=== PATIENT | female | born 1960 | race Caucasian/White ===

== ENCOUNTER 2017-08-16 03:11 | Observation (INO) | payer OTHER, SELFPAY ==
[2017-08-16] VITALS (10 sets, daily range): BP systolic 142–190; BP diastolic 84–112; PULSE 78–90; RESP 16–18; TEMP 36.7–36.8; O2SAT 95–99; BMI 38.2; BMI 37.4
--- NOTE | 2017-08-16 03:29 | EKG12_ITS ---
Test Reason : CP Blood Pressure : / mmHG Vent. Rate : 083 BPM Atrial Rate : 083 BPM P-R Int : 174 ms QRS Dur : 096 ms QT Int : 388 ms P-R-T Axes : 032 -27 005 degrees QTc Int : 455 ms Normal sinus rhythm Inferior infarct , age undetermined Anterior infarct , age undetermined Abnormal ECG Confirmed by NAVA COOPER, MAGDA ([id number]), medical editor MARK NICOLE ([id number]) on 08/19/2017 4:34:56 PM Referred By: GALINA Confirmed By:MAGDA VICK MD
[2017-08-16] MEDS: Ondansetron 4 MG/2 ML Vial IV (03:33)
[2017-08-16] MEDS: Aspirin 81 MG TAB.CHEW 324 MG PO (03:34)
[2017-08-16 03:36] LABS: Absolute Lymphocyte Count 3.88 X10^3/ul (0.83-4.51); Absolute Neutrophil Count 3.8 X10^3/uL (2.0-7.7); Basophil# 0.04 X10^3/uL; Basophil% 0.5 % (0-1); Eosinophils% 3.5 % (0-5); Hematocrit 38.9 % (37-47); Hemoglobin 13.4 g/dl (12.0-15.0); Lymphocyte # 3.88 X10^3/ul (4.0); Lymphocyte % 45.5 % (19-41); Mean Corp Hgb Conc 34.4 g/gl (32-36); Mean Corpuscular Hgb 29.5 pg (27.0-32.0); Mean Corpuscular Volume 85.5 fL (81-99); Mean Platelet Vol. 10.4 fl (6.2-12.0); Monocyte# 0.48 X10^3/uL; Monocyte% 5.6 % (0-10); Neutrophil # 3.81 X10^3/uL (2.7-7.7); Neutrophil % 44.7 % (47-70); POSITIVE COUNT NO; POSITIVE DIFFERENTIAL NO; POSITIVE MORPHOLOGY NO; Platelet Count 335 K/mm3 (150-450); RBC Distribution Width CV 12.9 % (11.6-14.6); RBC Distribution Width SD 39.7 fl (35.1-43.9); Red Blood Count 4.55 M/mm3 (4.2-5.4); White Blood Count 8.5 K/mm3 (4.4-11.0)
--- NOTE | 2017-08-16 03:45 | RAD_ITS ---
STUDY: X-RAY CHEST REASON FOR EXAM: Female, 57 years old. Chest pain. TECHNIQUE: Frontal and lateral views of the chest. COMPARISON: 05/22/2015. FINDINGS: The lungs are mildly underexpanded. There is no demonstrated pulmonary infiltrate. There is no demonstrated pleural abnormality. There is borderline cardiomegaly. Normal mediastinum and kemar. Normal visualized pulmonary arteries. Normal visualized aortic arch and descending thoracic aorta. There are diffuse degenerative changes of the visualized thoracic spine. There is truncation of the distal right clavicle which may be result of previous acromioplasty. There is no demonstrated abnormality of the visualized soft tissue structures of the upper abdomen. RAD/Chest PA and Lateral IMPRESSION: Borderline heart size. No evidence for acute cardiopulmonary pathology. Electronically Signed: Tony Hayes MD at 5:20 EST , Service support ,
[2017-08-16 03:57] LABS: Anion Gap 9 (5-15); BUN 13 mg/dL (7-18); BUN/Creat Ratio 15.5 RATIO (10-20); Calcium,Total 8.5 mg/dL (8.5-10.1); Chloride 97 mmol/L (98-107); Creatinine, Serum 0.84 mg/dL (0.55-1.02); EST Glomerular Filtration Rate 74 mL/min (>60); Est Glom Filt Rate - Afr Amer 90 mL/min (>60); Estimated Creatinine Clearance 63.81 ml/min; Glucose 275 mg/dL (74-106); Potassium 3.6 mmol/L (3.5-5.1); Sodium Level 135 mmol/L (136-145)
--- NOTE | 2017-08-16 04:16 | ED.VISSUMM ---
- ER Visit Summary Date of Service: 08/16/17 Chief Complaint: [] Pain in left chest History of Present Illness: The patient is a 57 F complaining of the above for the last hour at rest. Continuous stabbing left chest. Worsened by movement of her arm. Relieved by nothing. No associated symptoms. No home treatment. She is on a baby aspirin. No previous coronary artery disease. His movement related. Last nuclear stress test end of March 2016 normal at [facility]. No previous heart cath. She has never had this before. She has hypertension diabetes high cholesterol and a family history of early coronary artery disease. No PE or dissection risk factors. No home treatment. Physical Examination: [] Vital signs reviewed General: Well-nourished well-developed Head: Normocephalic atraumatic Eyes: Pupils equal round and reactive to light extraocular movements intact ENT: TMs clear no hemotympanum no trauma Neck: Nontender full range of motion Cardiovascular: Regular rate rhythm no murmurs normal S1-S2 Respiratory: No distress clear to auscultation bilaterally chest her left breast region without swelling or deformity. Abdomen: Soft nontender nondistended normal bowel sounds no masses Back: Nontender no CVA tenderness Extremities: Nontender active range of motion ?4 extremities no trauma Skin: Normal color no trauma Neuro alert oriented cranial nerves II through XII intact normal strength sensation reflexes Test Results: [] Emergency Department Course and Treatment: [] EKG shows sinus at 83. Q waves [id number] 3 and inferior lead III. No acute. Unchanged from prior. CBC chemistries normal except sodium 135. Glucose 275. Troponin negative. Chest x-ray shows nothing acute. She given oral aspirin a dose of morphine with good relief of pain. Heart rate remains normal. Normal pulse ox. Blood pressure down to 150 systolic. Have a low suspicion for pulmonary embolism. She does have sharp pain but it is reproducible. She has no tachycardia or low pulse ox. I do not feel she needs a d-dimer. I feel she should be admitted for further evaluation and treatment. She does have 4 risk factors for acute coronary disease. Her pain is only been going on for a little over an hour. Treatment Plan: [] Disposition: [] Impression: [] Left sided chest pain This note was generated with [employer] dictation software. It may contain incorrect words, spelling, and punctuation that were not noted in review of the chart prior to signing ED Disposition - Plan for ED Patient: Chief Complaint: Chest Pain Referrals: Waqas Velasquez DO [Primary Care Provider] -
--- NOTE | 2017-08-16 04:19 | ED.DCSUM_ITS ---
- ER Visit Summary Date of Service: 08/16/17 Chief Complaint: [] Pain in left chest History of Present Illness: The patient is a 57 F complaining of the above for the last hour at rest. Continuous stabbing left chest. Worsened by movement of her arm. Relieved by nothing. No associated symptoms. No home treatment. She is on a baby aspirin. No previous coronary artery disease. His movement related. Last nuclear stress test end of March 2016 normal at [facility]. No previous heart cath. She has never had this before. She has hypertension diabetes high cholesterol and a family history of early coronary artery disease. No PE or dissection risk factors. No home treatment. Physical Examination: [] Vital signs reviewed General: Well-nourished well-developed Head: Normocephalic atraumatic Eyes: Pupils equal round and reactive to light extraocular movements intact ENT: TMs clear no hemotympanum no trauma Neck: Nontender full range of motion Cardiovascular: Regular rate rhythm no murmurs normal S1-S2 Respiratory: No distress clear to auscultation bilaterally chest her left breast region without swelling or deformity. Abdomen: Soft nontender nondistended normal bowel sounds no masses Back: Nontender no CVA tenderness Extremities: Nontender active range of motion ?4 extremities no trauma Skin: Normal color no trauma Neuro alert oriented cranial nerves II through XII intact normal strength sensation reflexes Test Results: [] Emergency Department Course and Treatment: [] EKG shows sinus at 83. Q waves [id number] 3 and inferior lead III. No acute. Unchanged from prior. CBC chemistries normal except sodium 135. Glucose 275. Troponin negative. Chest x -ray shows nothing acute. She given oral aspirin a dose of morphine with good relief of pain. Heart rate remains normal. Normal pulse ox. Blood pressure down to 150 systolic. Have a low suspicion for pulmonary embolism. She does have sharp pain but it is reproducible. She has no tachycardia or low pulse ox. I do not feel she needs a d-dimer. I feel she should be admitted for further evaluation and treatment. She does have 4 risk factors for acute coronary disease. Her pain is only been going on for a little over an hour. Treatment Plan: [] Disposition: [] Impression: [] Left sided chest pain This note was generated with [employer] dictation software. It may contain incorrect words, spelling, and punctuation that were not noted in review of the chart prior to signing ED Disposition - Plan for ED Patient: Chief Complaint: Chest Pain Referrals: Waqas Velasquez DO [Primary Care Provider] -
--- NOTE | 2017-08-16 04:47 | HP.PCM_ITS ---
Problem List (1) H/O endarterectomy Status: Acute (2) Chest pain Status: Acute (3) Contusion of right ankle Status: Acute (4) Obstruction of right ureteropelvic junction (UPJ) due to stone Status: Acute Comment: 2CM RIGHT UPJ STONE WITH HYDRO. History of Present Illness Date of Admission: 08/16/17 Chief Complaint: Chest pain The patient is a 57 year old female w/ h/o endarterectomy, HTN, lipidemia, and renal stone admitted for chest pain. She has reproducible left-sided chest pain. Chest pain was worse with palpation. Nothing improved the pain. Pain was sharp but also dull aching. Pain was severe. Pt noted the pain at rest when she reached for her soda at home. She has no other symptoms. Chest pain lasted for an hour. Past Medical History Allergies No Known Allergies Allergy (Verified 08/16/17 03:11) Home Medications: Ambulatory Orders Medication Instructions Recorded Metformin HCl [Glucophage] 1,000 mg PO QHS 07/18/13 Omeprazole [Prilosec] 20 mg PO DAILY 07/18/13 Pravastatin [Pravachol] 20 mg PO QHS 04/18/15 Metformin HCl [Glucophage] 500 mg PO DAILY 01/30/16 Dulaglutide [Trulicity] 0.75 mg SQ Q7D 02/08/16 Aspirin [Aspirin, Baby] 81 mg PO DAILY@0800 10/10/16 Levetiracetam [Keppra] 750 mg PO BID 10/10/16 Losartan Potassium [Cozaar] 50 mg PO DAILY 10/10/16 Amlodipine [Norvasc] 5 mg PO DAILY #60 tablet 11/21/16 Allopurinol 100 mg PO DAILY 12/13/16 Potassium Citrate [Urocit-K] 15 meq PO BID 12/13/16 Metoprolol Tartrate 50 mg PO BID 08/16/17 Surgical History: noncontributory Psychiatric History: No pertinent psych hx RN PEDIATRIC ICU History: No pertinent RN PEDIATRIC ICU history Smoking Status: Never smoker - *Family History Maternal History Items: No pertinent history Review of Systems Constitutional: Denies: Chills, Fever, Weight Change HEENT: Denies: Head Aches, Sinus Congestion, Sinus Drainage Cardiovascular: Reports: Chest Pain. Denies: Palpitations Respiratory: Denies: Cough, Shortness of breath at rest, Sputum production Gastrointestinal: Denies: Abdominal Pain, Nausea, Vomiting Genitourinary: Denies: Dysuria Musculoskeletal: Denies: Joint Pain, Joint Tenderness Skin: Denies: Rash, Wounds Neurological: Denies: Numbness, Tingling, Focal weakness Psychiatric: Denies: Anxiety, Depression, Homicidal Ideations, Suicidal Ideations Hematologic/ Lymphatic: Denies: Easy Bruising, Easy Bleeding VTE Information - Inpt Only VTE Present on Admission: No VTE Mechan Device Prophylaxis: SCD's VTE Pharm Prophylaxis ordered?: Yes Patient Problems: Active and Suspected Problems H/O endarterectomy (Acute) Chest pain (Acute) - Physical Exam General: Alert, Oriented x3, Cooperative HEENT: Atraumatic, PERRLA, EOMI, Normocephalic Neck: Supple, No JVD, Negative Carotid Bruits Lungs: Clear to auscultation, Normal air movement Cardiovascular: Regular rate, No murmurs Abdomen: Bowel Sounds Present, Soft, Non Tender Extremities: No edema, Capillary Refill Less than 3 Seconds Skin: No rashes, No breakdown Musculoskeletal: No Tenderness to Palpation of Joints or Extremities Neurological: Cranial nerves II-XII grossly intact Psych/Mental Status: Normal Affect, Appropriate Vital Signs Temp Pulse Resp BP Pulse Ox 98.0 F 80 17 167/105 H 95 08/16/17 03:13 08/16/17 04:11 08/16/17 03:13 08/16/17 04:11 08/16/17 04:11 Oxygen Flow Rate 2 Oxygen Delivery Method Nasal Cannula Weight: 101.1 kg Body Mass Index (BMI) 38.2 Finger Stick Blood Glucose 229 Laboratory Tests Past 24 Hrs 08/16/17 08/16/17 03:20 03:20 WBC 8.5 RBC 4.55 Hgb 13.4 Hct 38.9 MCV 85.5 MCH 29.5 MCHC 34.4 RDW 12.9 RDW Differential 39.7 Plt Count 335 MPV 10.4 Immature Gran % (Auto) 0.200 Neut % (Auto) 44.7 L Lymph % (Auto) 45.5 H [place] % (Auto) 5.6 Eos % (Auto) 3.5 Baso % (Auto) 0.5 Absolute Neuts (auto) 3.8 Absolute Lymphs (auto) 3.88 Total Counted Not Reportable Sodium 135 L Potassium 3.6 Chloride 97 L Carbon Dioxide 29.0 Anion Gap 9 BUN 13 Creatinine 0.84 Estim Creat Clear Calc 63.81 Est GFR (MDRD) Af Amer 90 Est GFR (MDRD) Non-Af 74 BUN/Creatinine Ratio 15.5 Glucose 275 H Calcium 8.5 Troponin I < 0.02 Assessment/Plan Active and Suspected Problems H/O endarterectomy (Acute) Chest pain (Acute) 57 year old female w/ h/o endarterectomy, HTN, lipidemia, and renal stone admitted for chest pain. 1) Chest pain: Heart score 4 Pain is reproducible to palpation noted. EKG disclosed no new changes. No ST elevation or depression. Chest xray unremarkable. Will get serial trops. ECHO and stress test in AM. FLP in AM. Resume home meds. 2) HTN: Resume home meds. Monitor. 3) Lipidemia: Resume home meds. 4) Prophylaxis: SCD / heparin.
[2017-08-16] MEDS: 0.9% Normal Saline 1,000 ML 150 ML IV (05:42)
--- NOTE | 2017-08-16 05:55 | NM_ITS ---
CLINICAL: 57-year-old diabetic female with history of chest discomfort. REST-REGADENOSON 99m Tc SESTAMIBI MYOCARDIAL PERFUSION SPECT COMPARISON: None available FINDINGS: Following the intravenous administration of 13.9 mCi of 99m Tc sestamibi, the resting myocardial perfusion acquisitions demonstrate uniform radiopharmaceutical concentration throughout all left ventricular segments. The patient was administered intravenous regadenoson (0.4 mgm). Following the intravenous administration of 42.0 mCi of 99m Tc sestamibi, the post regadenoson images reveal likewise normal perfusion throughout all left ventricular myocardial segments. The post stress resting left ventricular ejection fraction is calculated to be > 70 % by gated SPECT technique. Wall motion and end systolic thickening are considered normal. NM/Nuclear Stress Test - Chemical IMPRESSION: 1. NORMAL REST-REGADENOSON STRESS 99m Tc SESTAMIBI MYOCARDIAL PERFUSION SPECT. A. No evidence of significant pharmacologically induced left ventricular ischemia. B. Preservation of resting left ventricular systolic function. (Shital et al, J Nucl Med 37: 105P, 1995). Electronically Signed: Dave Worrell DO at 13:03 EST Tel , Service support ,
--- NOTE | 2017-08-16 05:55 | ECHOD_ITS ---
Reason For Study: Chest Pain Procedure This was a 2D Doppler, Color Flow transthoracic echocardiogram. Exam performed portable in patient room. Left Ventricle Normal LV size. Mild concentric left ventricular hypertrophy. The estimated ejection fraction is 65 %. No regional wall motion abnormalities noted. Right Ventricle Mildly dilated right ventricle. Mild global right ventricular systolic dysfunction. Atria Normal left atrium. Normal right atrium. Mitral Valve The mitral valve is structurally normal. No prolapse or stenosis seen. Trivial mitral valve insufficiency. Tricuspid Valve Normal tricuspid valve. Mild tricuspid valve insufficiency. Aortic Valve Normal aortic valve. Trivial aortic valve insufficiency. Pulmonic Valve The pulmonic valve is not well visualized. Great Vessels Mildly dilated aortic root. Pericardium/Pleural No pericardial effusion. MMode/2D Measurements & Calculations LVIDd: 4.4 cm IVSd: 1.2 cm Ao root diam: 3.2 cm LVIDs: 2.8 cm LVPWd: 0.95 cm LA dimension: 3.6 cm RVDd: 3.6 cm FS: 35.8 % LAV(MOD-bp): 30.6 ml LA A4 area: 12.6 cm2 RA A4 area: 12.3 cm2 LAV(MOD-bp) Indexed: 15.0 ml/m2 LAV(MOD-sp2): 26.0 ml LAV(MOD-sp4): 30.0 ml Doppler Measurements & Calculations MV E max gerard: 61.7 cm/sec Lat Peak E' Gerard: 4.8 cm/sec Med Peak E' Gerard: 5.6 cm/sec MV A max gerard: 79.6 cm/sec E/E' lat: 12.9 E/E' med: 11.0 MV E/A: 0.78 Ao V2 max: 143.6 cm/sec LV V1 max: 113.3 cm/sec TR max gerard: 237.0 cm/sec Ao max P.3 mmHg LV V1 max P.1 mmHg TR max P.5 mmHg Ao V2 mean: 102.8 cm/sec Ao mean P.7 mmHg Ao V2 VTI: 32.4 cm Interpretation Summary Mild concentric left ventricular hypertrophy. LVEF 65% Mildly dilated right ventricle with mild right ventricular systolic dysfunction. Mildly dilated aortic root. Ordering Physician: Dallas Caceres Referring Physician: Waqas Velasquez Performed By: Jessica Blanca RDCS, RVT
[2017-08-16 08:49] LABS: Absolute Lymphocyte Count 2.52 X10^3/ul (0.83-4.51); Absolute Neutrophil Count 3.6 X10^3/uL (2.0-7.7); Basophil# 0.02 X10^3/uL; Basophil% 0.3 % (0-1); Eosinophil# 0.27 X10^3/uL; Hematocrit 37.7 % (37-47); Hemoglobin 12.7 g/dl (12.0-15.0); Lymphocyte # 2.52 X10^3/ul (4.0); Mean Corp Hgb Conc 33.7 g/gl (32-36); Mean Corpuscular Hgb 28.8 pg (27.0-32.0); Mean Corpuscular Volume 85.5 fL (81-99); Mean Platelet Vol. 10.7 fl (6.2-12.0); Monocyte# 0.39 X10^3/uL; Monocyte% 5.7 % (0-10); Neutrophil % 52.7 % (47-70); POSITIVE COUNT NO; POSITIVE DIFFERENTIAL NO; POSITIVE MORPHOLOGY NO; Platelet Count 294 K/mm3 (150-450); RBC Distribution Width SD 39.9 fl (35.1-43.9); Red Blood Count 4.41 M/mm3 (4.2-5.4); White Blood Count 6.8 K/mm3 (4.4-11.0)
[2017-08-16 09:32] LABS: AST(SGOT) 18 U/L (15-37); Alanine Aminotransfer ALT/SGPT 30 U/L (13-56); Albumin, Serum 3.2 g/dL (3.2-5.0); Alkaline Phosphatase 126 U/L (45-117); Anion Gap 10 (5-15); BUN 14 mg/dL (7-18); BUN/Creat Ratio 17.9 RATIO (10-20); Calcium,Total 8.3 mg/dL (8.5-10.1); Chloride 99 mmol/L (98-107); Cholesterol 158 mg/dL (200); Creatinine, Serum 0.78 mg/dL (0.55-1.02); EST Glomerular Filtration Rate 81 mL/min (>60); Est Glom Filt Rate - Afr Amer 98 mL/min (>60); Estimated Creatinine Clearance 68.72 ml/min; Globulin 3.3 g/dL (2.2-4.2); Glucose 252 mg/dL (74-106); High Density Lipoprotein 37 mg/dL; Magnesium 1.8 mg/dL (1.6-2.6); Protein, Total 6.5 g/dL (6.4-8.2); Sodium Level 136 mmol/L (136-145); Thyroid Stim Hormone (TSH) 4.32 uIU/mL (0.358-3.74); Triglycerides 368 mg/dL; Very Low Density Lipoprotein 74 mg/dL (5-40)
--- NOTE | 2017-08-16 10:38 | STRESSREP ---
Stress Test Report This is a report for the EKG part of the Lexiscan stress Cardiolite. The nuclear part will be dictated separately by radiology. Indications: Chest pain Modality: Pharmacological, Lexiscan Findings: Baseline EKG showed normal sinus rhythm. No ischemic changes were noted with Lexiscan administration. Conclusions: Negative Lexiscan stress EKG for ischemia. Imaging report will be dictated separately by radiology
--- NOTE | 2017-08-16 11:49 | PCM.DC ---
- Discharge Diagnoses Current Active Problems: Current Active and Chronic Problems H/O endarterectomy (Acute) Chest pain (Acute) You will use the following diet at home:: Calorie/Carbohydrate Controlled (specify 1200, 1400, etc), Cardiac Discharge Activity: Return to Normal Activity Call your doctor if you observe: Fever of 101 or Higher, Shortness of breath, Dizziness, Chest pain, Increased palpitations (irregular heartbeat) Allergies/Adverse Reactions: Allergies No Known Allergies Allergy (Verified 08/16/17 03:11) Medications to take at Discharge Metformin HCl [Glucophage] 1,000 mg PO QHS 07/18/13 Omeprazole [Prilosec] 20 mg PO DAILY 07/18/13 Pravastatin [Pravachol] 20 mg PO QHS 04/18/15 Metformin HCl [Glucophage] 500 mg PO DAILY 01/30/16 Dulaglutide [Trulicity] 0.75 mg SQ Q7D 02/08/16 Aspirin [Aspirin, Baby] 81 mg PO DAILY@0800 10/10/16 Levetiracetam [Keppra] 750 mg PO BID 10/10/16 Losartan Potassium [Cozaar] 50 mg PO DAILY 10/10/16 Amlodipine [Norvasc] 5 mg PO DAILY #60 tablet 11/21/16 Allopurinol 100 mg PO DAILY 12/13/16 Potassium Citrate [Urocit-K] 15 meq PO BID 12/13/16 Metoprolol Tartrate 50 mg PO BID 08/16/17 Primary Care Physician: Waqas Velasquez DO [Primary Care Provider] - Please follow up with your Primary Care Physician in: 1 Week Please Follow Up With: Vascular Surgeon When: As scheduled Proposed Discharge Date: 08/16/17
--- NOTE | 2017-08-16 12:02 | DCINST_ITS ---
- Discharge Diagnoses Current Active Problems: Current Active and Chronic Problems H/O endarterectomy (Acute) Chest pain (Acute) You will use the following diet at home:: Calorie/Carbohydrate Controlled ( specify 1200, 1400, etc), Cardiac Discharge Activity: Return to Normal Activity Call your doctor if you observe: Fever of 101 or Higher, Shortness of breath, Dizziness, Chest pain, Increased palpitations (irregular heartbeat) Allergies/Adverse Reactions: Allergies No Known Allergies Allergy (Verified 08/16/17 03:11) Medications to take at Discharge Metformin HCl [Glucophage] 1,000 mg PO QHS 07/18/13 Omeprazole [Prilosec] 20 mg PO DAILY 07/18/13 Pravastatin [Pravachol] 20 mg PO QHS 04/18/15 Metformin HCl [Glucophage] 500 mg PO DAILY 01/30/16 Dulaglutide [Trulicity] 0.75 mg SQ Q7D 02/08/16 Aspirin [Aspirin, Baby] 81 mg PO DAILY@0800 10/10/16 Levetiracetam [Keppra] 750 mg PO BID 10/10/16 Losartan Potassium [Cozaar] 50 mg PO DAILY 10/10/16 Amlodipine [Norvasc] 5 mg PO DAILY #60 tablet 11/21/16 Allopurinol 100 mg PO DAILY 12/13/16 Potassium Citrate [Urocit-K] 15 meq PO BID 12/13/16 Metoprolol Tartrate 50 mg PO BID 08/16/17 Primary Care Physician: Waqas Velasquez DO [Primary Care Provider] - Please follow up with your Primary Care Physician in: 1 Week Please Follow Up With: Vascular Surgeon When: As scheduled Proposed Discharge Date: 08/16/17
--- NOTE | 2017-08-16 12:07 | PCM.DC.SUM ---
Discharge Date and Diagnosis Date of Admission: 08/16/17 Date of Discharge: 08/16/17 - Primary Discharge Diagnosis Active and Suspected Problems 1. Chest pain- ACS ruled out - Secondary Discharge Diagnosis Type 2 diabetes mellitus History of endarterectomy Hyperlipidemia Hypertension GERD Hx CVA Hx seizures Hospital Course and Treatment Imaging Results: Diagnostic Data Chest X-Ray 08/16/17 03:45 IMPRESSION: Borderline heart size. No evidence for acute cardiopulmonary pathology. Electronically Signed: Tony Hayes MD at 5:20 EST , Service support , Operations: None Procedures: 2-D Echocardiogram, Stress test Summary of Care Provided: Patient is a 57-year-old female admitted 08/16/2017 due to left-sided chest pain. She states pain occurred after reaching for a can of pop for her . Left-sided chest mildly tender to palpation. Patient has a past medical history of type 2 diabetes mellitus, hyperlipidemia, hypertension, GERD, history of endarterectomy, history of CVA with residual minimal right-sided weakness, history of seizures status post CVA. Patient underwent nuclear stress test which was negative for ischemia. Echocardiogram showed an estimated ejection fraction of 65%, mild left ventricular hypertrophy, mildly dilated right ventricle with mild right ventricular systolic dysfunction, mild dilated aortic root. EKG without ST changes. Chest x-ray unremarkable. Lab work unremarkable. Troponin negative. Patient follows annually with vascular surgeon and [place] who performed her enterectomy. She has an upcoming carotid ultrasound and follow-up appointment the first week of September. Patient denies further chest pain. Telemetry without arrhythmias. Patient seen and examined prior to discharge. Heart rate regular rate and rhythm. Lungs clear. Abdomen soft, nontender. Neuro grossly intact. Vital signs stable. Patient is stable for discharge home with further follow-up with primary care physician, vascular surgery and neurology as previously scheduled. Other chronic medical conditions as noted above are stable at this time. This patient was seen by MALLORIE Newman under the supervision of Dr. Moulton. Discharge Diet: Low fat/ Low Cholesterol, Carb Control Diet Discharge Activity: Return to Normal Activity Call your doctor if you observe: Fever of 101 or Higher, Shortness of breath, Dizziness, Chest pain, Increased palpitations (irregular heartbeat) Home Medications: Medications to take at Discharge Metformin HCl [Glucophage] 1,000 mg PO QHS 07/18/13 Omeprazole [Prilosec] 20 mg PO DAILY 07/18/13 Pravastatin [Pravachol] 20 mg PO QHS 04/18/15 Metformin HCl [Glucophage] 500 mg PO DAILY 01/30/16 Dulaglutide [Trulicity] 0.75 mg SQ Q7D 02/08/16 Aspirin [Aspirin, Baby] 81 mg PO DAILY@0800 10/10/16 Levetiracetam [Keppra] 750 mg PO BID 10/10/16 Losartan Potassium [Cozaar] 50 mg PO DAILY 10/10/16 Amlodipine [Norvasc] 5 mg PO DAILY #60 tablet 11/21/16 Allopurinol 100 mg PO DAILY 12/13/16 Potassium Citrate [Urocit-K] 15 meq PO BID 12/13/16 Metoprolol Tartrate 50 mg PO BID 08/16/17 Primary Care Physician: Waqas Velasquez DO [Primary Care Provider] - Please follow up with your Primary Care Physician in: 1 Week Please Follow Up With: Vascular Surgeon When: As scheduled Disposition: Home Minutes spent on discharge:: 35 Patient Condition:: Stable Meaningful Use Info Meaningful Use Diagnoses (Choose all that apply): None applicable
--- NOTE | 2017-08-16 12:17 | DS.PCM_ITS ---
Discharge Date and Diagnosis Date of Admission: 08/16/17 Date of Discharge: 08/16/17 - Primary Discharge Diagnosis Active and Suspected Problems 1. Chest pain- ACS ruled out - Secondary Discharge Diagnosis Type 2 diabetes mellitus History of endarterectomy Hyperlipidemia Hypertension GERD Hx CVA Hx seizures Hospital Course and Treatment Imaging Results: Diagnostic Data Chest X-Ray 08/16/17 03:45 IMPRESSION: Borderline heart size. No evidence for acute cardiopulmonary pathology. Electronically Signed: Tony Hayes MD at 5:20 EST , Service support , Operations: None Procedures: 2-D Echocardiogram, Stress test Summary of Care Provided: Patient is a 57-year-old female admitted 08/16/2017 due to left-sided chest pain. She states pain occurred after reaching for a can of pop for her . Left-sided chest mildly tender to palpation. Patient has a past medical history of type 2 diabetes mellitus, hyperlipidemia, hypertension, GERD, history of endarterectomy, history of CVA with residual minimal right-sided weakness, history of seizures status post CVA. Patient underwent nuclear stress test which was negative for ischemia. Echocardiogram showed an estimated ejection fraction of 65%, mild left ventricular hypertrophy, mildly dilated right ventricle with mild right ventricular systolic dysfunction, mild dilated aortic root. EKG without ST changes. Chest x-ray unremarkable. Lab work unremarkable. Troponin negative. Patient follows annually with vascular surgeon and [facility] who performed her enterectomy. She has an upcoming carotid ultrasound and follow-up appointment the first week of September. Patient denies further chest pain. Telemetry without arrhythmias. Patient seen and examined prior to discharge. Heart rate regular rate and rhythm. Lungs clear. Abdomen soft, nontender. Neuro grossly intact. Vital signs stable. Patient is stable for discharge home with further follow-up with primary care physician, vascular surgery and neurology as previously scheduled. Other chronic medical conditions as noted above are stable at this time. This patient was seen by MALLORIE Newman under the supervision of Dr. Moulton. Discharge Diet: Low fat/ Low Cholesterol, Carb Control Diet Discharge Activity: Return to Normal Activity Call your doctor if you observe: Fever of 101 or Higher, Shortness of breath, Dizziness, Chest pain, Increased palpitations (irregular heartbeat) Home Medications: Medications to take at Discharge Metformin HCl [Glucophage] 1,000 mg PO QHS 07/18/13 Omeprazole [Prilosec] 20 mg PO DAILY 07/18/13 Pravastatin [Pravachol] 20 mg PO QHS 04/18/15 Metformin HCl [Glucophage] 500 mg PO DAILY 01/30/16 Dulaglutide [Trulicity] 0.75 mg SQ Q7D 02/08/16 Aspirin [Aspirin, Baby] 81 mg PO DAILY@0800 10/10/16 Levetiracetam [Keppra] 750 mg PO BID 10/10/16 Losartan Potassium [Cozaar] 50 mg PO DAILY 10/10/16 Amlodipine [Norvasc] 5 mg PO DAILY #60 tablet 11/21/16 Allopurinol 100 mg PO DAILY 12/13/16 Potassium Citrate [Urocit-K] 15 meq PO BID 12/13/16 Metoprolol Tartrate 50 mg PO BID 08/16/17 Primary Care Physician: Waqas Velasquez DO [Primary Care Provider] - Please follow up with your Primary Care Physician in: 1 Week Please Follow Up With: Vascular Surgeon When: As scheduled Disposition: Home Minutes spent on discharge:: 35 Patient Condition:: Stable Meaningful Use Info Meaningful Use Diagnoses (Choose all that apply): None applicable
== END 2017-08-16 13:00 | disposition home or self-care (01) ==
LOC: ED 04:04 → PCU 04:40
PROVIDERS: Admitting Provider Internal Medicine; Emergency Provider Emergency Medicine; Family Provider Family Medicine; PCP Family Medicine; Visit Provider Internal Medicine
DX: R07.89 Other chest pain (principal); E11.9 Type 2 diabetes mellitus without complications; E78.5 Hyperlipidemia, unspecified; I10 Essential (primary) hypertension; E66.9 Obesity, unspecified; K21.9 Gastro-esophageal reflux disease without esophagitis; I69.398 Other sequelae of cerebral infarction; R56.9 Unspecified convulsions; I69.351 Hemiplegia and hemiparesis following cerebral infarction affecting right dominant side; Z68.37 Body mass index [BMI] 37.0-37.9, adult; Z71.3 Dietary counseling and surveillance; Z79.899 Other long term (current) drug therapy; Z79.84 Long term (current) use of oral hypoglycemic drugs; Z79.82 Long term (current) use of aspirin; I08.3 Combined rheumatic disorders of mitral, aortic and tricuspid valves; Z87.442 Personal history of urinary calculi
CPT/HCPCS: 71046; 78452; 80048; 80053; 80061; 83735; 84443; 84484; 85025; 93005; 93017; 93306; 96374; 96375; 99218; 99285; A9500; J7030; Q9957; A4216; G0378; J2405; J2785

== ENCOUNTER → 2017-10-02 08:52 | Outpatient (CLI) | payer OTHER, SELFPAY ==
[2017-10-02 10:23] LABS: Hemoglobin A1c 10.2 % (4.2-6.3)
== END ==
LOC: LAB.FUTURE 08:53
PROVIDERS: Family Provider Family Medicine; PCP Family Medicine; Visit Provider Family Medicine
DX: E11.65 Type 2 diabetes mellitus with hyperglycemia (principal)
CPT/HCPCS: 36415; 83036

== ENCOUNTER → 2017-12-03 09:51 | Outpatient (CLI) | payer OTHER, SELFPAY ==
[2017-12-03 10:58] LABS: ALB/GLOB Ratio 0.9 RATIO (0.9-2.4); AST(SGOT) 20 U/L (15-37); Alanine Aminotransfer ALT/SGPT 35 U/L (13-56); Albumin, Serum 3.6 g/dL (3.2-5.0); Alkaline Phosphatase 103 U/L (45-117); Amylase 33 U/L (25-115); Anion Gap 10 (5-15); BUN 17 mg/dL (7-18); BUN/Creat Ratio 21.5 RATIO (10-20); Chloride 102 mmol/L (98-107); Creatinine, Serum 0.79 mg/dL (0.55-1.02); EST Glomerular Filtration Rate 79 mL/min (>60); Est Glom Filt Rate - Afr Amer 96 mL/min (>60); Globulin 3.8 g/dL (2.2-4.2); Glucose 194 mg/dL (74-106); Lipase 148 U/L (73-393); Potassium 4.1 mmol/L (3.5-5.1); Protein, Total 7.4 g/dL (6.4-8.2); Sodium Level 142 mmol/L (136-145)
[2017-12-03 11:03] LABS: Hemoglobin A1c 9.1 % (4.2-6.3)
[2017-12-03 11:07] LABS: Microalbumin,Random Urine 60.8 mg/L (NO RANGE EST.); Microalbumin:Creatinine Ratio 37.1 mg/g CRE (<30 mg/g CRE)
[2017-12-03 11:12] LABS: T4 Free Direct 1.02 ng/dL (0.76-1.46); Thyroid Stim Hormone (TSH) 2.61 uIU/mL (0.358-3.74)
== END ==
PROVIDERS: Internal Medicine; Family Provider Family Medicine; PCP Family Medicine; Visit Provider Family Medicine
DX: R10.13 Epigastric pain (principal); E11.9 Type 2 diabetes mellitus without complications; R94.6 Abnormal results of thyroid function studies
CPT/HCPCS: 36415; 80053; 82043; 82150; 82570; 83036; 83690; 84439; 84443

== ENCOUNTER → 2018-03-09 09:10 | Outpatient (CLI) | payer OTHER, SELFPAY ==
[2018-03-09 10:09] LABS: Hemoglobin A1c 10.6 % (4.2-6.3)
== END ==
LOC: LAB 09:14
PROVIDERS: Family Provider Family Medicine; PCP Family Medicine; Visit Provider Family Medicine
DX: E11.9 Type 2 diabetes mellitus without complications (principal)
CPT/HCPCS: 36415; 83036

== ENCOUNTER → 2018-07-24 09:22 | Outpatient (CLI) | payer MEDICARE, SELFPAY ==
[2018-07-23 13:23] VITALS: BMI 37.8
[2018-07-24 10:18] LABS: AST(SGOT) 20 U/L (15-37); Alanine Aminotransfer ALT/SGPT 38 U/L (13-56); Albumin, Serum 3.3 g/dL (3.2-5.0); Alkaline Phosphatase 139 U/L (45-117); Anion Gap 10 (5-15); BUN 11 mg/dL (7-18); BUN/Creat Ratio 13.8 RATIO (10-20); Calcium,Total 8.4 mg/dL (8.5-10.1); Chloride 105 mmol/L (98-107); Cholesterol 178 mg/dL (200); EST Glomerular Filtration Rate 78 mL/min (>60); Est Glom Filt Rate - Afr Amer 95 mL/min (>60); Globulin 3.4 g/dL (2.2-4.2); Glucose 265 mg/dL (74-106); High Density Lipoprotein 34 mg/dL; Potassium 4.1 mmol/L (3.5-5.1); Protein, Total 6.7 g/dL (6.4-8.2); Sodium Level 139 mmol/L (136-145); Triglycerides 359 mg/dL; Very Low Density Lipoprotein 72 mg/dL (5-40)
== END ==
PROVIDERS: Family Provider Family Medicine; PCP Family Medicine; Referring Provider Family Medicine; Visit Provider Family Medicine
DX: E11.9 Type 2 diabetes mellitus without complications (principal)
CPT/HCPCS: 36415; 80053; 80061

== ENCOUNTER 2018-08-05 23:33 | Emergency (ER) | payer MEDICARE, SELFPAY ==
[2018-07-23 13:23] VITALS: BMI 37.8
[2018-08-05 23:35] VITALS: BP 189/105; PULSE 97; RESP 18; TEMP 36.2; O2SAT 96; BMI 37.3
[2018-08-06] LABS: Bacteria 0 SEEN /hpf (None Seen); Mucous, Urine 0 SEEN /hpf (<or=2+)
[2018-08-06 00:02] LABS: Color, Urine Yellow (Yellow); Glucose, Dipstick 250 mg/dl (Normal); Ketone-Dipstick Negative (Negative); Leukocyte Esterase-Dipstick 100 /ul (Negative); Nitrite-Dipstick Negative (Negative); Occult Blood-Urine 250 /ul (Negative); Protein-Dipstick 15 mg/dl (Negative); Urine Bilirubin Dipstick Negative (Negative); Urine Clarity Sl. Cloudy (Clear); Urine Urobilinogen Normal (Normal)
[2018-08-06] MEDS: 0.9% Normal Saline 1,000 ML 1000 ML IV (00:04)
[2018-08-06] MEDS: Ondansetron 4 MG/2 ML Vial IV (00:04)
[2018-08-06] MEDS: Ketorolac 30 MG/ML Syringe IV (00:04)
[2018-08-06 00:09] LABS: Absolute Lymphocyte Count 2.87 X10^3/ul (0.83-4.51); Absolute Neutrophil Count 6.1 X10^3/uL (2.0-7.7); Basophil# 0.02 X10^3/uL; Basophil% 0.2 % (0-1); Eosinophil# 0.16 X10^3/uL; Eosinophils% 1.6 % (0-5); Hematocrit 42.5 % (37-47); Hemoglobin 14.4 g/dl (12.0-15.0); Lymphocyte # 2.87 X10^3/ul (4.0); Lymphocyte % 29.5 % (19-41); Mean Corp Hgb Conc 33.9 g/gl (32-36); Mean Corpuscular Hgb 28.7 pg (27.0-32.0); Mean Corpuscular Volume 84.7 fL (81-99); Monocyte# 0.57 X10^3/uL; Monocyte% 5.9 % (0-10); Neutrophil # 6.07 X10^3/uL (2.7-7.7); Neutrophil % 62.5 % (47-70); Platelet Count 394 K/mm3 (150-450); RBC Distribution Width CV 13.1 % (11.6-14.6); RBC Distribution Width SD 39.9 fl (35.1-43.9); Red Blood Count 5.02 M/mm3 (4.2-5.4); White Blood Count 9.7 K/mm3 (4.4-11.0)
[2018-08-06 00:11] LABS: POSITIVE COUNT NO; POSITIVE DIFFERENTIAL NO; POSITIVE MORPHOLOGY NO
[2018-08-06 00:16] LABS: Red Blood Cells-Urine 10-25 SEEN /hpf (0-5)
[2018-08-06 00:17] LABS: Squamous Epithelial Cells - UA 5-10 SEEN /hpf (5-10); Uric Acid Crystals Ur 1+ /hpf (<or=1+); White Blood Cells 5-10 SEEN /hpf (0-5)
[2018-08-06 00:31] LABS: Anion Gap 10 (5-15); BUN 22 mg/dL (7-18); BUN/Creat Ratio 19.8 RATIO (10-20); Chloride 104 mmol/L (98-107); Creatinine, Serum 1.11 mg/dL (0.55-1.02); EST Glomerular Filtration Rate 54 mL/min (>60); Est Glom Filt Rate - Afr Amer 65 mL/min (>60); Estimated Creatinine Clearance 47.71 ml/min; Glucose 293 mg/dL (74-106); Potassium 4.2 mmol/L (3.5-5.1); Sodium Level 137 mmol/L (136-145)
[2018-08-06 02:19] VITALS: RESP 16
[2018-08-06 03:09] VITALS: BP 157/97; PULSE 88; RESP 16; TEMP 36.8; O2SAT 94
--- NOTE | 2018-08-06 04:03 | ED.VISSUMM ---
- ER Visit Summary Date of Service: 08/06/18 Chief Complaint: Flank pain History of Present Illness: The patient is a 58 F with right sided flank pain. She has a history of kidney stones. Reports nausea but denies any other GI symptoms. Denies any symptoms. Denies fever. Physical Examination: Afebrile and vital signs unremarkable. Patient has right CVA tenderness. Abdomen soft and nontender. Otherwise exam unremarkable. Test Results: Urinalysis shows blood but no signs of infection. Blood work unremarkable. CT shows a 6 mm stone at the distal right ureter. She has hydronephrosis and hydroureter. Emergency Department Course and Treatment: Patient treated with Toradol and fluids. She was improved on reevaluation. She would like to try outpatient follow-up with Dr. Palacio. She was given a prescription for Percocet, Flomax, and Zofran. Return right away for any new or worsening issues. She was advised that this stone may not pass spontaneously. Treatment Plan: As above Disposition: Discharged Impression: 1. Right ureteral colic This note was generated with [employer] dictation software. It may contain incorrect words, spelling, and punctuation that were not noted in review of the chart prior to signing ED Disposition - Plan for ED Patient: Disposition: Home or Assisted Living Instructions: ED Stone Renal W Colic Prescriptions: Oxycodone HCl/Acetaminophen [Percocet 5/325] 1 tab PO Q6H PRN PRN 3 Days #12 tab PRN Reason: Pain Ondansetron [Zofran Odt] 4 mg PO Q8H PRN PRN #10 tab PRN Reason: Nausea Tamsulosin HCl [Flomax] 0.4 mg PO DAILY #7 cap Referrals: Adalberto Palacio MD [STAFF PHYSICIAN] -
--- NOTE | 2018-08-06 04:06 | DCINST.ED_ITS ---
ED Disposition - Plan for ED Patient: Instructions: ED Stone Renal W Colic Prescriptions: Oxycodone HCl/Acetaminophen [Percocet 5/325] 1 tab PO Q6H PRN PRN 3 Days #12 tab PRN Reason: Pain Ondansetron [Zofran Odt] 4 mg PO Q8H PRN PRN #10 tab PRN Reason: Nausea Tamsulosin HCl [Flomax] 0.4 mg PO DAILY #7 cap Referrals: Adalberto Palacio MD [STAFF PHYSICIAN] -
[2018-08-06 04:11] VITALS: BP 156/70; PULSE 79; RESP 18; O2SAT 96
--- NOTE | 2018-08-06 23:43 | CT_ITS ---
HISTORY: RIGHT LOWER ABD PAIN, RIGHT FLANK, NAUSEA, CONSTIPATION, HX APPY and renal stone disease TECHNIQUE: Helically acquired images were obtained of the abdomen and pelvis without oral or IV contrast as per renal stone protocol. A radiation dose optimization technique was used for this scan. IV Contrast dosage and agent: None. Oral contrast: None. COMPARISON: 11/20/2016 FINDINGS: Both kidneys are normal in position. Mildly atrophic left kidney, unchanged. 6 x 4 mm stone within the distal right ureter with proximal moderate hydronephrosis and hydroureter. The stone lies approximately 10 mm proximal to the right UVJ. Cluster of stones within the lower pole calyces of the right kidney. Left renal tiny 1-2 mm calyceal stone. No hydronephrosis or hydroureter on the left. Adrenal glands are not enlarged. Lower thorax: Clear. No pleural effusion. Limited non-infusion exam. Mild fatty infiltration of the liver. Negative gallbladder and biliary system. Normal spleen and pancreas. Abdominal aorta is atherosclerotic and is normal in caliber. No ascites or retroperitoneal lymph enlargement. GI tract: No obstruction. Mild diverticulosis coli. Previous appendectomy. Pelvis: The urinary bladder is poorly distended. No bladder stones are seen. No free fluid or lymphadenopathy. Distal right ureteral stone, as above. Ventral abdominal Wall: Tiny fat-containing umbilical hernia, unchanged. 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 No acute osseous abnormality. CT/Abdomen/Pelvis without Cont IMPRESSION: 1. 6 mm obstructing stone within the distal right ureter with proximal moderate right hand arthrosis and moderate right hydroureter. This stone is new compared to previous. 2. Cluster of calyceal stones within lower pole of the right kidney. Right renal stones were also present previously 3. Left renal mild atrophy and left renal tiny nonobstructing stone. 4. Diverticulosis coli and additional chronic changes, as above. Individualized dose optimization techniques were used for this CT. at 0254 Reported and signed by: Prasad Medina MD Electronically Signed: Prasad Medina, at 2:53 EST Tel , Service support ,
== END 2018-08-06 04:12 | disposition home or self-care (01) ==
LOC: ED 08-06 00:35
PROVIDERS: Emergency Provider Emergency Medicine; Family Provider Family Medicine; PCP Family Medicine
DX: N13.2 Hydronephrosis with renal and ureteral calculous obstruction (principal); Z87.442 Personal history of urinary calculi; I10 Essential (primary) hypertension; E11.9 Type 2 diabetes mellitus without complications; G40.909 Epilepsy, unspecified, not intractable, without status epilepticus; Z79.82 Long term (current) use of aspirin; Z79.84 Long term (current) use of oral hypoglycemic drugs; Z79.899 Other long term (current) drug therapy; Z86.73 Personal history of transient ischemic attack (TIA), and cerebral infarction without residual deficits
CPT/HCPCS: 74176; 80048; 81001; 85025; 96361; 96374; 96375; 99284; J7030; J2405

== ENCOUNTER → 2018-09-02 08:13 | Outpatient (CLI) | payer MEDICARE, SELFPAY ==
[2018-08-28 13:32] VITALS: BMI 37.8
--- NOTE | 2018-09-02 08:14 | US_ITS ---
Exam: Superficial ultrasound limited to the abdominal wall. REASON FOR VISIT: Female, 58 years old. 2 AREAS OF PALP LUMPS ON RT ABD Comparison: CT scan 08/06/2018 FINDINGS: No significant abnormalities. In one area an incidental and normal appearing 1.3 cm lymph node is seen. No suspicious masses. No focal fluid collections. US/Abdomen Limited IMPRESSION: No significant abnormalities. Electronically Signed: Garth Luevano MD at 13:37 EDT , Service support ,
== END ==
LOC: US 08:14
PROVIDERS: Family Provider Family Medicine; PCP Family Medicine; Referring Provider Nurse Practitioner Family; Visit Provider Nurse Practitioner Family
DX: R19.01 Right upper quadrant abdominal swelling, mass and lump (principal)
CPT/HCPCS: 76705

== ENCOUNTER 2018-09-07 13:08 | Outpatient (RCR) | payer MEDICARE, SELFPAY ==
[2018-08-28 13:32] VITALS: BMI 37.8
== END 2018-09-13 23:59 ==
LOC: DC 13:08
PROVIDERS: Family Provider Family Medicine; PCP Family Medicine; Visit Provider Family Medicine
DX: E11.9 Type 2 diabetes mellitus without complications (principal); Z71.3 Dietary counseling and surveillance
CPT/HCPCS: 97802

== ENCOUNTER → 2018-09-18 10:03 | Outpatient (CLI) | payer MEDICARE, SELFPAY ==
[2018-09-18 09:29] VITALS: BMI 37.8
[2018-09-18 12:42] LABS: Erythrocyte Sedimentation Rate 6 mm/hr (0-30)
[2018-09-18 12:47] LABS: Absolute Lymphocyte Count 3.28 X10^3/ul (0.83-4.51); Absolute Neutrophil Count 4.1 X10^3/uL (2.0-7.7); Basophil# 0.02 X10^3/uL; Basophil% 0.2 % (0-1); Eosinophil# 0.28 X10^3/uL; Eosinophils% 3.4 % (0-5); Hemoglobin 12.8 g/dl (12.0-15.0); Lymphocyte # 3.28 X10^3/ul (4.0); Lymphocyte % 40.2 % (19-41); Mean Corp Hgb Conc 32.8 g/gl (32-36); Mean Corpuscular Hgb 28.3 pg (27.0-32.0); Mean Corpuscular Volume 86.1 fL (81-99); Mean Platelet Vol. 10.2 fl (6.2-12.0); Monocyte# 0.46 X10^3/uL; Monocyte% 5.6 % (0-10); Neutrophil # 4.11 X10^3/uL (2.7-7.7); Neutrophil % 50.5 % (47-70); Platelet Count 406 K/mm3 (150-450); RBC Distribution Width CV 13.1 % (11.6-14.6); RBC Distribution Width SD 41.2 fl (35.1-43.9); Red Blood Count 4.53 M/mm3 (4.2-5.4); White Blood Count 8.2 K/mm3 (4.4-11.0)
[2018-09-18 12:49] LABS: POSITIVE COUNT NO; POSITIVE DIFFERENTIAL NO; POSITIVE MORPHOLOGY NO
--- NOTE | 2018-09-18 13:03 | RAD_ITS ---
STUDY: X-RAY RIGHT FOOT, GREAT TOE REASON FOR EXAM: Female, 58 years old. Injury. TECHNIQUE: 3 view(s) of the toe were obtained. COMPARISON: None. FINDINGS: Normal visualized metatarsus. Normal metatarsophalangeal (M.T.P) joint. Normal interphalangeal joints. Normal phalanges and interphalangeal joints. The soft tissue structures are unremarkable. RAD/Toe(s) Min 2 Views IMPRESSION: No demonstrated acute osseous injury. Electronically Signed: Lloyd Hernandez MD at 13:17 EDT Tel , Service support ,
== END ==
PROVIDERS: Family Provider Family Medicine; PCP Family Medicine; Referring Provider Nurse Practitioner Family; Visit Provider Nurse Practitioner Family
DX: S99.921A Unspecified injury of right foot, initial encounter (principal); L03.031 Cellulitis of right toe; L03.211 Cellulitis of face
CPT/HCPCS: 36415; 73660; 85025; 85652; 87070; 87205

== ENCOUNTER 2018-10-05 13:00 | Outpatient (RCR) | payer MEDICARE, SELFPAY ==
[2018-08-28 13:32] VITALS: BMI 37.8
== END 2018-10-13 23:59 ==
LOC: DC 13:00
PROVIDERS: Family Provider Family Medicine; PCP Family Medicine; Visit Provider Family Medicine
DX: E11.9 Type 2 diabetes mellitus without complications (principal); Z71.3 Dietary counseling and surveillance
CPT/HCPCS: 97803; G0108

== ENCOUNTER 2018-12-07 11:00 | Outpatient (RCR) | payer MEDICARE, SELFPAY ==
[2018-09-18 09:29] VITALS: BMI 37.8
[2018-10-15 13:34] VITALS: BMI 37.8
== END 2018-12-13 23:59 ==
LOC: DC 11:00
PROVIDERS: Family Provider Family Medicine; PCP Family Medicine; Visit Provider Family Medicine
DX: E11.9 Type 2 diabetes mellitus without complications (principal); Z71.3 Dietary counseling and surveillance
CPT/HCPCS: 97803

== ENCOUNTER 2018-12-23 11:48 | Outpatient (RCR) | payer MEDICARE, SELFPAY ==
[2018-10-15 13:34] VITALS: BMI 37.8
== END 2019-01-13 23:59 ==
LOC: DC 11:48
PROVIDERS: Family Provider Family Medicine; PCP Family Medicine; Visit Provider Family Medicine
DX: E11.9 Type 2 diabetes mellitus without complications (principal); Z71.3 Dietary counseling and surveillance
CPT/HCPCS: G0108

== ENCOUNTER 2019-01-25 10:00 | Outpatient (RCR) | payer MEDICARE, SELFPAY ==
[2018-10-15 13:34] VITALS: BMI 37.8
[2019-01-14 18:03] LABS: AST(SGOT) 14 U/L (15-37); Alanine Aminotransfer ALT/SGPT 34 U/L (13-56); Albumin, Serum 3.7 g/dL (3.2-5.0); Alkaline Phosphatase 95 U/L (45-117); BUN 16 mg/dL (7-18); BUN/Creat Ratio 18.6 RATIO (10-20); Cholesterol 175 mg/dL (200); Creatinine, Serum 0.86 mg/dL (0.55-1.02); EST Glomerular Filtration Rate 72 mL/min (>60); Est Glom Filt Rate - Afr Amer 87 mL/min (>60); Estimated Creatinine Clearance 61.57 ml/min; Globulin 3.7 g/dL (2.2-4.2); Glucose 135 mg/dL (74-106); Protein, Total 7.4 g/dL (6.4-8.2); Triglycerides 275 mg/dL
[2019-01-14 18:04] LABS: Anion Gap 9 (5-15); Chloride 103 mmol/L (98-107); High Density Lipoprotein 45 mg/dL; Sodium Level 139 mmol/L (136-145); Thyroid Stim Hormone (TSH) 2.69 uIU/mL (0.358-3.74); Very Low Density Lipoprotein 55 mg/dL (5-40)
== END 2019-02-13 23:59 ==
LOC: DC 10:00
PROVIDERS: Family Provider Family Medicine; PCP Family Medicine; Referring Provider Family Medicine; Visit Provider Family Medicine
DX: E11.9 Type 2 diabetes mellitus without complications (principal); Z71.3 Dietary counseling and surveillance
CPT/HCPCS: 36415; 80053; 80061; 84439; 84443; 97803; G0109

== ENCOUNTER 2019-03-01 09:25 | Outpatient (RCR) | payer MEDICARE, SELFPAY ==
[2019-01-14 16:19] VITALS: BMI 36.8
== END 2019-03-15 23:59 ==
LOC: DC 09:25
PROVIDERS: Family Provider Family Medicine; PCP Family Medicine; Referring Provider Family Medicine; Visit Provider Family Medicine
DX: E11.9 Type 2 diabetes mellitus without complications (principal); Z71.3 Dietary counseling and surveillance

== ENCOUNTER 2019-03-30 20:20 | Emergency (ER) | payer MEDICARE, SELFPAY ==
[2019-01-14 16:19] VITALS: BMI 36.8
[2019-03-30 20:21] VITALS: BP 169/93; PULSE 84; RESP 15; TEMP 36.7; O2SAT 98; BMI 37.4
--- NOTE | 2019-03-30 20:42 | RAD_ITS ---
STUDY: X-RAY - RIGHT TIBIA AND FIBULA REASON FOR EXAM: Female, 58 years old. Fall, pain TECHNIQUE: 2 view(s) of the tibia and fibula were obtained. COMPARISON: None. FINDINGS: Normal visualized tibia. Normal visualized fibula. There is a partially visualized plantar spur. There is visualized soft tissue edema. There is soft tissue edema about the ankle. There is a tiny focal density adjacent to the lateral aspect of the calcaneus which could represent to represent an avulsion injury. RAD/Tibia & Fibula 2 Views IMPRESSION: Possible tiny avulsion injury on the lateral side of the calcaneus. Seen on the AP view. Electronically Signed: Amy Hayward MD at 21:16 EDT Tel , Service support ,
--- NOTE | 2019-03-30 20:42 | RAD_ITS ---
STUDY: X-RAY - RIGHT FOOT CLINICAL: Female, 58 years old. Status post fall TECHNIQUE: 3 view(s) of the foot. COMPARISON: December 20, 2015 right foot x-ray. FINDINGS: Normal talus, calcaneus, and tarsal bones. Normal visualized subtalar, talonavicular, calcaneocuboid, tarsal and tarsometatarsal articulations. Normal metatarsi. Normal metatarsophalangeal joint of the great toe. Normal tibial and fibular sesamoid bones. Normal interphalangeal joint of the great toe. Normal phalanges of the great toe. Normal second through fifth metatarsophalangeal joints. Normal interphalangeal joints and phalanges of the lesser toes. The there is soft tissue edema about the foot. There is a subtle focal irregularity along the side of the lateral aspect of the calcaneus. This is not as well demonstrated on this study as the ankle x-ray. RAD/Foot min 3 Views IMPRESSION: Possible avulsion injury of the calcaneus. No other fracture is seen. Electronically Signed: Amy Hayward MD at 21:20 EDT Tel , Service support ,
--- NOTE | 2019-03-30 20:42 | RAD_ITS ---
STUDY: X-RAY - RIGHT ANKLE REASON FOR EXAM: Female, 58 years old. Fall, pain TECHNIQUE: 3 view(s) of the ankle. COMPARISON: Foot x-ray FINDINGS: Normal visualized distal tibia and fibula. Normal medial and lateral malleoli. Normal tibiotalar articulation and ankle mortise. There is a large plantar spur. There is a punctate density adjacent to the lateral aspect of the foot approximately at the calcaneus. The visualized subtalar, talonavicular, calcaneocuboid and tarsal articulations are normal. There is soft tissue edema about the ankle. RAD/Ankle min 3 Views IMPRESSION: Findings suspicious for small avulsion injury of the lateral calcaneus. Electronically Signed: Amy Hayward MD at 21:19 EDT Tel , Service support ,
[2019-03-30] MEDS: HYDROcodone Bitartrate/Apap 5/325 Tablet PO (20:46)
--- NOTE | 2019-03-30 20:56 | ED.DCSUM_ITS ---
- ER Visit Summary Date of Service: 03/30/19 Chief Complaint: Right ankle injury History of Present Illness: The patient is a 58 F presenting with right ankle injury. Patient states that she was walking down the steps and slipped on clothes that were laying on the stairs. She fell down 2 steps. She did not hit her head or lose consciousness. She twisted her right ankle. She initially was able to bear weight. She states that the pain has progressively worsened. She denies other injuries. Physical Examination: Vitals are stable. Patient is afebrile. Alert no acute distress. HEENT exam is unremarkable. Neck is supple. Lungs are clear and equal bilaterally. Heart is regular rate and rhythm. Abdomen is soft nontender nondistended. Extremities right lateral ankle tenderness, right lateral foot tenderness. No proximal fibula tenderness. Normal pulses. Skin is warm and dry. No focal neurologic deficit. Remainder of exam is unremarkable. Emergency Department Course and Treatment: Patient was given [place]. X-ray right foot, ankle, tib-fib show possible tiny avulsion injury on the lateral side of the calcaneus. Patient was given a boot orthosis and advised nonweightbearing. Advised to follow-up with orthopedics. Advised return to the ED for worsening complaints. Disposition: Discharge home Impression: Right foot and ankle injury, possible avulsion calcaneus This note was generated with [employer] dictation software. It may contain incorrect words, spelling, and punctuation that were not noted in review of the chart prior to signing ED Disposition - Plan for ED Patient: Instructions: FRACTURE, Foot Prescriptions: Hydrocodone Bitart/Apap 5-325 [[place] 5MG-325MG] 1 tab PO Q6H PRN PRN 3 Days #10 tab PRN Reason: Pain Prescription Printed Referrals: Waqas Velasquez DO [Primary Care Provider] - Andrade Ferguson DO [STAFF PHYSICIAN] -
--- NOTE | 2019-03-30 21:35 | ED.DEP ---
ED Disposition - Plan for ED Patient: Instructions: FRACTURE, Foot Prescriptions: Hydrocodone Bitart/Apap 5-325 [[place] 5MG-325MG] 1 tablet PO Q6H PRN PRN 3 Days #10 tablet PRN Reason: Pain Referrals: Waqas Velasquez DO [Primary Care Provider] - Andrade Ferguson DO [STAFF PHYSICIAN] -
[2019-03-30 22:01] VITALS: BP 160/88; PULSE 72; RESP 18; O2SAT 97
== END 2019-03-30 22:02 | disposition home or self-care (01) ==
PROVIDERS: Emergency Provider Emergency Medicine; Family Provider Family Medicine; PCP Family Medicine
DX: S99.911A Unspecified injury of right ankle, initial encounter (principal); S99.921A Unspecified injury of right foot, initial encounter; W10.9XXA Fall (on) (from) unspecified stairs and steps, initial encounter; Y93.01 Activity, walking, marching and hiking; I10 Essential (primary) hypertension; E11.9 Type 2 diabetes mellitus without complications; K21.9 Gastro-esophageal reflux disease without esophagitis; G40.909 Epilepsy, unspecified, not intractable, without status epilepticus; Z79.82 Long term (current) use of aspirin; Z79.84 Long term (current) use of oral hypoglycemic drugs; Z79.899 Other long term (current) drug therapy; Z86.73 Personal history of transient ischemic attack (TIA), and cerebral infarction without residual deficits
CPT/HCPCS: 73590; 73610; 73630; 99284

== ENCOUNTER → 2019-05-12 10:27 | Outpatient (CLI) | payer MEDICARE, SELFPAY ==
[2019-04-21 10:42] VITALS: BMI 37.4
--- NOTE | 2019-05-12 10:31 | BI_ITS ---
MAMMOGRAPHY - BILATERAL SCREENING 3-D TOMOSYNTHESIS REASON FOR EXAM: Female, 58 years old. PERTINENT HISTORY: No significant family history. TECHNIQUE: 2-D mammograms and 3-D Tomosynthesis of the breast (s) were performed. CAD was performed. COMPARISON: STUDY: X-RAY - BILATERAL FOOT CLINICAL: Female, 58 years old. TECHNIQUE: 3 view(s) of the foot. COMPARISON: December 20, 2015 right foot x-ray. FINDINGS: Normal talus, calcaneus, and tarsal bones. Normal visualized subtalar, talonavicular, calcaneocuboid, tarsal and tarsometatarsal articulations. Normal metatarsi. Normal metatarsophalangeal joint of the great toe. Normal tibial and fibular sesamoid bones. Normal interphalangeal joint of the great toe. Normal phalanges of the great toe. Normal second through fifth metatarsophalangeal joints. Normal interphalangeal joints and phalanges of the lesser toes. The there is soft tissue edema about the foot. There is a subtle focal irregularity along the side of the lateral aspect of the calcaneus. This is not as well demonstrated on this study as the ankle x-ray. IMPRESSION: Possible avulsion injury of the calcaneus. No other fracture is seen. Comparison: October 05. FINDINGS: The breast composition is relatively heterogeneous fibroglandular tissue that will obscured tiny lesions Scattered benign calcifications are seen. No dense spiculated masses or suspicious microcalcifications are identified. No architectural distortion is identified. There is no skin thickening or nipple retraction. There is an oil cyst or lipoma seen on the left breast in the craniocaudal view laterally measures about 4 cm in diameter this was present before. There has been no significant change since the prior study since the study of October 06, 2011. BI/SCREEN MAMM (CAD) W/JIMMY BILAT IMPRESSION: No mammographic signs of malignancy. Routine yearly mammograms recommended. ASSESSMENT CATEGORY: BIRADS Category 1: Negative. A letter regarding these results will be sent to the patient by the facility within 30 days. FOLLOW UP RECOMMENDATION: Yearly follow up mammogram recommended. (A) Approximately 10% of breast cancers are not detected by mammography. A normal mammogram should not delay biopsy of a clinically suspicious abnormality. Electronically Signed: Alfredo Teran, at 11:09 EST Tel , Service support ,
== END ==
PROVIDERS: Family Provider Family Medicine; PCP Family Medicine; Referring Provider Family Medicine; Visit Provider Family Medicine
DX: Z12.31 Encounter for screening mammogram for malignant neoplasm of breast (principal)
CPT/HCPCS: 77063; 77067

== ENCOUNTER → 2019-12-02 11:09 | Outpatient (CLI) | payer MEDICARE, SELFPAY ==
[2019-12-01 16:37] VITALS: BMI 37.4
--- NOTE | 2019-12-01 17:30 | LES_PTH ---
PATIENT: MEKA RANGEL LOC: [facility] U#:[id number] AGE/SX: 64/F ROOM: RE12/02/[address]: Dr. Waqas Velasquez DO : 1960 BED: DIS: SPEC #: [id number] RECD: 12/02/19 12:05 STATUS: KALLI NIMO #: [id number] INO: 12/01/19 17:[address]: Waqas Velasquez DEPT: SURGICAL PATHOLOGY RECD BY: Marcelo Lopez Tissues: Skin of arm Procedures: Surgery Specimen Level IV HEADER OPERATION: Biopsy skin lesion PRE-OP DIAGNOSIS: Skin lesion TISSUE SUBMITTED: Left upper arm skin lesion MICROSCOPIC DIAGNOSIS Left upper arm skin lesion, shave biopsy: Consistent with dermatofibroma. GLADIS:magdalene 12/06/19 COMMENT Case has been reviewed in consultation with Dr. Brown who concurs with the above diagnosis. IDC:AM MICROSCOPIC DESCRIPTION Slides are reviewed. GROSS DESCRIPTION Received is one container labeled with the patient's name and not further designated. The specimen consists of a light shah shave biopsy of skin measuring 0.6 x 0.3 x 0.1 cm. The specimen is totally submitted in one cassette for postfixation sectioning. / AM:magdalene 12/03/19 TC:1 CPT: 46901
== END ==
PROVIDERS: PCP Family Medicine; Referring Provider Family Medicine; Visit Provider Family Medicine
DX: L98.9 Disorder of the skin and subcutaneous tissue, unspecified (principal)
CPT/HCPCS: 88305

== ENCOUNTER → 2020-01-26 10:29 | Outpatient (CLI) | payer MEDICARE, SELFPAY ==
[2020-01-26 09:57] VITALS: BMI 37.4
[2020-01-26 13:01] LABS: AST(SGOT) 28 U/L (15-37); Alanine Aminotransfer ALT/SGPT 45 U/L (13-56); Albumin, Serum 3.6 g/dL (3.2-5.0); Alkaline Phosphatase 116 U/L (45-117); Anion Gap 7 (5-15); BUN 15 mg/dL (7-18); BUN/Creat Ratio 17.6 RATIO (10-20); Calcium,Total 9.2 mg/dL (8.5-10.1); Chloride 103 mmol/L (98-107); Cholesterol 170 mg/dL (200); Creatinine, Serum 0.85 mg/dL (0.55-1.02); EST Glomerular Filtration Rate 72 mL/min (>60); Est Glom Filt Rate - Afr Amer 88 mL/min (>60); Globulin 3.6 g/dL (2.2-4.2); Glucose 212 mg/dL (74-106); High Density Lipoprotein 42 mg/dL; Potassium 4.3 mmol/L (3.5-5.1); Protein, Total 7.2 g/dL (6.4-8.2); Sodium Level 138 mmol/L (136-145); Thyroid Stim Hormone (TSH) 2.25 uIU/mL (0.358-3.74); Triglycerides 322 mg/dL; Very Low Density Lipoprotein 64 mg/dL (5-40)
== END ==
PROVIDERS: PCP Family Medicine; Referring Provider Family Medicine; Visit Provider Family Medicine
DX: E78.5 Hyperlipidemia, unspecified (principal); F32.9 Major depressive disorder, single episode, unspecified; E11.9 Type 2 diabetes mellitus without complications
CPT/HCPCS: 36415; 80053; 80061; 84443

== ENCOUNTER → 2020-04-25 10:03 | Outpatient (CLI) | payer MEDICARE, SELFPAY ==
[2020-04-25 09:28] VITALS: BMI 37.5
[2020-04-25 12:59] LABS: Magnesium 1.6 mg/dL (1.6-2.6)
== END ==
PROVIDERS: PCP Family Medicine; Referring Provider Family Medicine; Visit Provider Family Medicine
DX: R25.2 Cramp and spasm (principal)
CPT/HCPCS: 36415; 83735

== ENCOUNTER → 2021-01-31 14:57 | Outpatient (CLI) | payer MEDICARE, SELFPAY ==
[2021-01-31 17:10] LABS: ALB/GLOB Ratio 0.9 RATIO (0.9-2.4); AST(SGOT) 24 U/L (15-37); Alanine Aminotransfer ALT/SGPT 49 U/L (13-56); Albumin, Serum 3.5 g/dL (3.2-5.0); Alkaline Phosphatase 131 U/L (45-117); Anion Gap 8 (5-15); BUN 14 mg/dL (7-18); BUN/Creat Ratio 20.1 RATIO (10-20); Calcium,Total 9.1 mg/dL (8.5-10.1); Chloride 102 mmol/L (98-107); Cholesterol 176 mg/dL (200); EST Glomerular Filtration Rate 91 mL/min (>60); Est Glom Filt Rate - Afr Amer 110 mL/min (>60); Globulin 3.7 g/dL (2.2-4.2); Glucose 166 mg/dL (74-106); High Density Lipoprotein 43 mg/dL; Protein, Total 7.2 g/dL (6.4-8.2); Sodium Level 138 mmol/L (136-145); Triglycerides 340 mg/dL; Very Low Density Lipoprotein 68 mg/dL (5-40)
[2021-01-31 17:18] LABS: Microalbumin:Creatinine Ratio 87.7 mg/g CRE (<30 mg/g CRE)
== END ==
PROVIDERS: PCP Family Medicine; Visit Provider Family Medicine
DX: E11.65 Type 2 diabetes mellitus with hyperglycemia (principal); R07.89 Other chest pain
CPT/HCPCS: 36415; 80053; 80061; 82043; 82570

== ENCOUNTER → 2022-03-05 | Outpatient (CLI) | payer MEDICARE, SELFPAY ==
[2022-03-05 13:26] LABS: ALB/GLOB Ratio 0.9 RATIO (0.9-2.4); AST(SGOT) 20 U/L (15-37); Alanine Aminotransfer ALT/SGPT 36 U/L (13-56); Albumin, Serum 3.6 g/dL (3.2-5.0); Alkaline Phosphatase 119 U/L (45-117); Anion Gap 10 (5-15); BUN 21 mg/dL (7-18); Calcium,Total 9.1 mg/dL (8.5-10.1); Chloride 103 mmol/L (98-107); Cholesterol 180 mg/dL (200); Creatinine, Serum 0.84 mg/dL (0.55-1.02); EST Glomerular Filtration Rate 73 mL/min (>60); Est Glom Filt Rate - Afr Amer 89 mL/min (>60); Globulin 3.9 g/dL (2.2-4.2); Glucose 154 mg/dL (74-106); High Density Lipoprotein 46 mg/dL; Potassium 4.3 mmol/L (3.5-5.1); Protein, Total 7.5 g/dL (6.4-8.2); Sodium Level 141 mmol/L (136-145); Triglycerides 325 mg/dL; Very Low Density Lipoprotein 65 mg/dL (5-40)
== END | disposition home or self-care (01) ==
PROVIDERS: PCP Family Medicine; Visit Provider Family Medicine
DX: E11.65 Type 2 diabetes mellitus with hyperglycemia (principal)
CPT/HCPCS: 36415; 80053; 80061

== ENCOUNTER → 2023-03-26 | Outpatient (CLI) | payer MEDICARE, SELFPAY ==
[2023-03-26 16:33] LABS: Absolute Lymphocyte Count 3.38 X10^3/uL (0.83-4.51); Absolute Neutrophil Count 3.8 X10^3/uL (2.0-7.7); Basophil# 0.06 X10^3/uL; Basophil% 0.7 % (0-1); Eosinophil# 0.61 X10^3/uL; Eosinophils% 7.3 % (0-5); Hematocrit 40.6 % (37-47); Hemoglobin 12.7 g/dL (12.0-15.0); Lymphocyte # 3.38 X10^3/ul (0.83-4.51); Lymphocyte % 40.4 % (19-41); Mean Corp Hgb Conc 31.3 g/dL (32-36); Mean Corpuscular Hgb 27.7 pg (27.0-32.0); Mean Corpuscular Volume 88.5 fL (81-99); Mean Platelet Vol. 10.3 fl (6.2-12.0); Monocyte# 0.53 X10^3/uL; Monocyte% 6.3 % (0-10); NRBC Flagged by Analyzer 0 % (0-5); Neutrophil # 3.75 X10^3/uL (2.7-7.7); Neutrophil % 44.9 % (47-70); POSITIVE MORPHOLOGY YES; Platelet Count 373 K/mm3 (150-450); RBC Distribution Width CV 13.2 % (11.6-14.6); RBC Distribution Width SD 42.8 fl (35.1-43.9); Red Blood Count 4.59 M/mm3 (4.2-5.4); White Blood Count 8.4 K/mm3 (4.4-11.0)
[2023-03-26 17:02] LABS: ALB/GLOB Ratio 0.9 RATIO (0.9-2.4); AST(SGOT) 23 U/L (15-37); Alanine Aminotransfer ALT/SGPT 43 U/L (13-56); Albumin, Serum 3.4 g/dL (3.2-5.0); Alkaline Phosphatase 110 U/L (45-117); Anion Gap 7 (5-15); BUN 15 mg/dL (7-18); BUN/Creat Ratio 16.4 RATIO (10-20); Calcium,Total 8.5 mg/dL (8.5-10.1); Chloride 103 mmol/L (98-107); Cholesterol 138 mg/dL (200); Creatinine, Serum 0.91 mg/dL (0.55-1.02); EST Glomerular Filtration Rate 66 mL/min (>60); Est Glom Filt Rate - Afr Amer 80 mL/min (>60); Globulin 3.8 g/dL (2.2-4.2); Glucose 183 mg/dL (74-106); High Density Lipoprotein 41 mg/dL; Potassium 4.1 mmol/L (3.5-5.1); Protein, Total 7.2 g/dL (6.4-8.2); Sodium Level 137 mmol/L (136-145); Thyroid Stim Hormone (TSH) 1.92 uIU/mL (0.358-3.74); Triglycerides 237 mg/dL; Very Low Density Lipoprotein 47 mg/dL (5-40)
[2023-03-26 17:32] LABS: Differential Indicated SCAN CRITERIA MET
[2023-03-26 17:39] LABS: Anisocytosis RARE; Atypical Lymphocyte 1+ %; Platelet Estimate ADEQUATE (ADEQ); Red Cell Morphology N CHROM NORMAL (NORM C&C)
== END | disposition home or self-care (01) ==
LOC: BIMLAB 15:30
PROVIDERS: PCP Family Medicine; Visit Provider Family Medicine
DX: E11.65 Type 2 diabetes mellitus with hyperglycemia (principal)
CPT/HCPCS: 36415; 80053; 80061; 84443; 85025

== ENCOUNTER → 2023-03-27 | Outpatient (CLI) | payer MEDICARE, SELFPAY ==
[2023-03-27 17:08] LABS: Microalbumin,Random Urine 25.8 mg/L (NO RANGE EST.); Microalbumin:Creatinine Ratio 23.2 mg/g CRE (<30 mg/g CRE)
== END | disposition home or self-care (01) ==
LOC: LABSPEC 15:23
PROVIDERS: PCP Family Medicine; Visit Provider Family Medicine
DX: E11.9 Type 2 diabetes mellitus without complications (principal)
CPT/HCPCS: 82043; 82570

== ENCOUNTER 2024-03-24 16:24 | Observation (INO) | payer MEDICARE, SELFPAY ==
[2024-03-24] VITALS (9 sets, daily range): BP systolic 140–170; BP diastolic 79–101; PULSE 69–90; RESP 12–18; TEMP 35.7–36.6; O2SAT 93–100; BMI 38.0; BMI 37.9
--- NOTE | 2024-03-24 16:35 | EKG12_ITS ---
Test Reason : CP Blood Pressure : / mmHG Vent. Rate : 089 BPM Atrial Rate : 089 BPM P-R Int : 228 ms QRS Dur : 076 ms QT Int : 370 ms P-R-T Axes : 034 -27 035 degrees QTc Int : 450 ms Sinus rhythm with 1st degree A-V block Inferior infarct (cited on or before 16-AUG-2017) Anterolateral infarct (cited on or before 16-AUG-2017) Abnormal ECG Confirmed by NAVA COOPER, MAGDA ([id number]), science editor THU IZAGUIRRE ([id number]) on 03/26/2024 2:07:26 PM Referred By: Venkat Ríos Confirmed By:MAGDA VICK MD
--- NOTE | 2024-03-24 16:35 | RAD_ITS ---
STUDY: X-RAY CHEST REASON FOR EXAM: Female, 63 years old. chest pain TECHNIQUE: AP portable COMPARISON: None. FINDINGS: The lungs are clear and expanded. There is no demonstrated pleural abnormality. Heart is enlarged. Normal mediastinum and kemar. Normal visualized pulmonary arteries. Normal visualized aortic arch and descending thoracic aorta. Dorsal spine demonstrates degenerative changes. Normal visualized ribs, clavicles, and shoulders. There is no demonstrated abnormality of the visualized soft tissue structures of the upper abdomen. RAD/Chest 1 View (Portable) IMPRESSION: Cardiomegaly. No acute cardiopulmonary pathology Electronically Signed: Johnny Brito MD at 17:14 EDT ,
--- NOTE | 2024-03-24 16:36 | EDS_ITS ---
HPI History of Present Illness Chief Complaint: Chest Pain Detail of Chief Complaint: Chest pain Informant: patient Narrative Narrative: Patient presents to the emergency department complaint of chest pain that started approximately 3:57 PM. Patient states that she had dropped off her grandson she was driving when she had sudden onset of sharp stabbing and burning pain in the center of her chest. That then kind of dissipated now just has a dull discomfort in her center of her chest. Patient also states that she has some discomfort into the left side of her neck where she had her carotid endarterectomy which is always numb to the touch for the last 8 years since her surgery. Patient also feels some tightness in her throat. Patient denies nausea or vomiting. She denies shortness of breath. She denies recent illness. No heart history. Patient has had prior stress test her last one was 4 to 5 years ago. Patient has never had a heart catheterization. [facility] Medical History Acute frontal sinusitis, unspecified Hives Depression Migraines Kidney stones GERD (gastroesophageal reflux disease) IBS (irritable bowel syndrome) Type 2 diabetes mellitus Seasonal allergies History of stroke Seizures Hypertension Hyperlipemia Home Medications ?Medication ?Instructions ?Recorded ?Last Taken ?Type aspirin 81 mg chewable tablet 81 mg PO DAILY@0800 10/10/16 03/24/24 History cetirizine 10 mg capsule 10 mg PO QDAY #30 caps 03/12/18 03/24/24 Rx levetiracetam 750 mg tablet 750 mg PO BID #180 tabs 02/12/19 Unknown Rx (Keppra) magnesium oxide 500 mg capsule 500 mg PO DAILY #90 caps 10/31/20 03/24/24 Rx blood sugar diagnostic (Blood #100 ea 06/25/23 Unknown Rx Glucose Test strips) blood-glucose meter #1 ea 06/25/23 Unknown Rx lancets #200 ea 06/25/23 Unknown Rx potassium citrate 15 mEq (1,620 15 meq PO BID #180 tabs 06/25/23 Unknown Rx mg) tablet,extended release pravastatin 20 mg tablet 20 mg PO QHS #90 tabs 06/25/23 Unknown Rx gabapentin 100 mg capsule 100 mg PO TID 01/06/24 Unknown History allopurinol 100 mg tablet 100 mg PO DAILY #90 tabs 02/24/24 Unknown Rx amlodipine 5 mg tablet 5 mg PO DAILY #90 tabs 02/24/24 Unknown Rx glipizide 2.5 mg tablet, extended 2.5 mg PO DAILY #90 tabs 02/24/24 Unknown Rx release 24 hr losartan 50 mg tablet 50 mg PO DAILY #90 tabs 02/24/24 Unknown Rx metformin 1,000 mg tablet 1,000 mg PO QHS #90 tabs 02/24/24 Unknown Rx metformin 500 mg tablet 500 mg PO BREAKFAST #90 tabs 02/24/24 Unknown Rx omeprazole 20 mg capsule,delayed 20 mg PO DAILY #90 caps 02/24/24 Unknown Rx release dulaglutide 4.5 mg/0.5 mL 4.5 mg (0.5 mL) subcut QWEEK #2 mL 03/23/24 Unknown Rx subcutaneous pen injector metoprolol tartrate 50 mg tablet 50 mg PO BID #180 TABLETS 03/23/24 Unknown Rx Allergy/AdvReac Type Severity Reaction Status Date / Time No Known Allergies Allergy Verified 03/24/24 16:25 Family History Father Hypertension Heart disease Myocardial infarction Hyperlipemia Brother Epilepsy Mother Thyroid disorder Sister Lupus Surgical History History of partial hysterectomy History of carpal tunnel release History of right knee surgery History of shoulder surgery History of appendectomy Social History Smoking Status: Never smoker alcohol intake: never substance use type: does not use what type of physical activity do you participate in: none ROS ROS ED Review of Systems ROS Unobtainable: other Constitutional Constitutional ED: Reports lethargy; Denies chills, fever(s), sweats or weight loss Eyes Eyes: Denies blurry vision, change in vision or diplopia ENT ENT ED: Denies rhinorrhea or sore throat Cardiovascular Cardiovascular: Reports chest pain; Denies orthopnea or racing heartbeat Respiratory/Chest Respiratory/Chest: Denies cough, dyspnea, dyspnea on exertion, orthopnea or sputum Gastrointestinal Gastrointestinal: Denies abdominal pain, diarrhea, nausea or vomiting Genitourinary Genitourinary ED: Denies dysuria, hematuria or urinary frequency Musculoskeletal Musculoskeletal: Denies arthralgias, back pain, myalgias or neck pain Integumentary Denies abscess, Abrasions or rash Neurologic Neurologic: Denies headache(s) or weakness Psychiatric Psychiatric: Denies anxiety, depression or suicidal thoughts Endocrine Endocrinology: Denies polydipsia, polyphagia or polyuria Hematologic/Lymphatic Hematologic/Lymphatic: Denies easy bleeding, easy bruising or lymphadenopathy Allergic/Immunologic Allergic/Immunologic ED: Denies mouth swelling, tongue swelling or urticaria EXAM Physical Exam Const Vital Signs: 03/24/24 16:25 03/24/24 16:55 03/24/24 17:09 Temperature 96.2 F L Temperature Source Temporal Pulse Rate 90 82 Respiratory Rate 18 Blood Pressure 140/101 H 146/79 H Blood Pressure Mean 114 Pulse Ox 95 94 Oxygen Delivery Method Room Air Room Air 03/24/24 17:14 03/24/24 17:24 Temperature Temperature Source Pulse Rate 88 85 Respiratory Rate 14 Blood Pressure 146/79 H 151/91 H Blood Pressure Mean 111 Pulse Ox 93 Oxygen Delivery Method Room Air Positive well nourished and well developed General Appearance ED: well developed and NAD HEENT Reports TM's clear and moist mucous membranes normocephalic and atraumatic; Negative for trauma or tenderness Tympanic Membrane ED: Yes TM's clear Eyes PERRL and EOMs intact bilaterally General Eye ED: Negative for pale conjunctiva or scleral icterus Neck no lymphadenopathy, supple and no JVD General: Negative for tenderness Chest Wall inspection of chest normal and palpation of chest normal Chest: Negative for tenderness Resp normal respiratory effort and clear to auscultation bilaterally Effort and Inspection: Negative for respiratory distress or pain with movement Auscultation: Negative for rhonchi, wheezes or diminished lung sounds Cardio regular rate, regular rhythm, S1 normal heart sound, S2 normal heart sound and no murmurs Peripheral Pulses: pulses 2+ throughout GI normal to inspection, nondistended, normoactive bowel sounds, soft to palpation, non-tender, non-distended and no masses Back/Spine no CVA tenderness and no thoracic nor lumbar tenderness Extremity normal to inspection General Extremety ED: Negative for edema General Extremity: Negative for edema Neuro oriented x3, CN's II-XII intact bilaterally, no sensory deficits noted and gait normal Sensorium / Orientation: awake, alert, oriented to person, oriented to place and oriented to time Motor Exam: strength 5/5 throughout and strength abnormal Psych mental status grossly normal Skin no rashes or lesions noted and no wounds Heart Score History: Moderately Suspicious ECG: Nonspecific Repolarization Age: >45 - <65 years Risk Factors: >/= 3 Risk Factors or History of CAD Troponin: </= Normal Limit Score: 5 MDM MDM MDM Narrative Medical decision making narrative: Patient presents with sudden onset of chest pain at rest. In the differential would be GERD versus acute coronary syndrome versus PE which is less likely. Also on differential would be pneumothorax or pneumomediastinum. IV line established on arrival. Patient will be placed on apartment property manager. Currently rates her pain a 4 out of 10. She will be given aspirin and sublingual nitro. EKG obtained arrival shows sinus rhythm with rate of 89 bpm with old anterior lateral infarct. When compared with prior EKG from 2018 no new changes noted. CBC with differential white count of 8.4 with hemoglobin 12.2 and platelet count of 335. Chemistries unremarkable. Troponin was normal at 4. D-dimer normal at 0.41. While in the department she did receive aspirin and sublingual nitroglycerin which resolved her pain and she is currently pain-free. Patient has a heart score of 5. She also has significant family history of heart disease. Recommended admission for cardiac rule out. Will discuss case with hospitalist to evaluate for admission. Lab Data Attestation: I reviewed the patient's lab results. Labs: Laboratory Results - last 24 hr 03/24/24 16:53 WBC 8.4 RBC 4.33 Hgb 12.2 Hct 37.6 MCV 86.8 MCH 28.2 MCHC 32.4 RDW Std Deviation 40.9 RDW Coeff of [place] 12.9 Plt Count 335 MPV 10.0 Immature Gran % (Auto) 0.500 Neut % (Auto) 51.3 Lymph % (Auto) 39.4 [place] % (Auto) 5.6 Eos % (Auto) 2.7 Baso % (Auto) 0.5 Absolute Neuts (auto) 4.3 Absolute Lymphs (auto) 3.32 Nucleated RBC % 0 D-Dimer Quant (PE/DVT) 0.41 Sodium 140 Potassium 4.0 Chloride 106 Carbon Dioxide 27.0 Anion Gap 7 BUN 17 Creatinine 0.88 Estim Creat Clear Calc 75.51 Est GFR (MDRD) Af Amer 83 Est GFR (MDRD) Non-Af 69 BUN/Creatinine Ratio 19.3 Glucose 226 H Calcium 9.0 Troponin I High Sens 4 Radiography Diagnostic Testing: Clinical Impression(s) from Imaging Studies Chest X-Ray 03/24/24 16:35 IMPRESSION: Cardiomegaly. No acute cardiopulmonary pathology Electronically Signed: Johnny Brito MD at 17:14 EDT , 1 view chest x-ray obtained interpreted by myself no evidence of infiltrate or pneumothorax or acute disease process. Radiology in agreement and they did note cardiomegaly. EKG Initial EKG: Attestation: I personally reviewed and interpreted this EKG as follows: Comments: Sinus rhythm with rate of [address] changes unchanged from prior EKG from August 2017. Discharge Plan Triage Chief Complaint: Chest Pain ED Provider: Venkat Ríos Dx/Rx/DC Orders Clinical Impression: Chest pain, History of hypertension, History of diabetes mellitus, History of hypercholesterolemia Prescriptions: No Action magnesium oxide 500 mg capsule 500 mg PO DAILY Qty: 90 1RF potassium citrate 15 mEq tablet extended release 15 meq PO BID Qty: 180 3RF pravastatin 20 mg tablet 20 mg PO QHS Qty: 90 3RF (DME) blood-glucose meter Kit See Rx Instructions .Route Qty: 1 1RF Rx Instructions: As directed (DME) Blood Glucose Test Strip See Rx Instructions .Route Qty: 100 2RF Rx Instructions: As directed (DME) lancets Misc See Rx Instructions .Route Qty: 200 1RF Rx Instructions: As directed gabapentin 100 mg capsule 100 mg PO TID aspirin 81 MG tablet,chewable 81 mg PO DAILY@0800 cetirizine 10 mg capsule 10 mg PO QDAY Qty: 30 2RF levetiracetam [Keppra] 750 mg tablet 750 mg PO BID Qty: 180 1RF allopurinol 100 mg tablet 100 mg PO DAILY Qty: 90 3RF amlodipine 5 mg tablet 5 mg PO DAILY Qty: 90 3RF glipizide 2.5 mg tablet extended release 24hr 2.5 mg PO DAILY Qty: 90 1RF losartan 50 mg tablet 50 mg PO DAILY Qty: 90 3RF metformin 500 mg tablet 500 mg PO BREAKFAST Qty: 90 3RF metformin 1,000 mg tablet 1,000 mg PO QHS Qty: 90 3RF omeprazole 20 mg capsule,delayed release(DR/EC) 20 mg PO DAILY Qty: 90 3RF dulaglutide 4.5 mg/0.5 mL pen injector 4.5 mg SC QWEEK Qty: 2 2RF Rx Instructions: inject into abdomen, thigh, or upper arm (deltoid muscle); rotate sites metoprolol tartrate 50 mg tablet 50 mg PO BID Qty: 180 3RF Primary Care Provider: Waqas Velasquez Referrals: Waqas Velasquez DO [Primary Care Provider] - Print Language: [place] Disposition Disposition: Acute Care Hospital [facility]
[2024-03-24 16:58] LABS: Absolute Lymphocyte Count 3.32 X10^3/uL (0.83-4.51); Absolute Neutrophil Count 4.3 X10^3/uL (2.0-7.7); Basophil# 0.04 X10^3/uL; Basophil% 0.5 % (0-1); Eosinophil# 0.23 X10^3/uL; Eosinophils% 2.7 % (0-5); Hematocrit 37.6 % (37-47); Hemoglobin 12.2 g/dL (12.0-15.0); Lymphocyte # 3.32 X10^3/ul (0.83-4.51); Lymphocyte % 39.4 % (19-41); Mean Corp Hgb Conc 32.4 g/dL (32-36); Mean Corpuscular Hgb 28.2 pg (27.0-32.0); Mean Corpuscular Volume 86.8 fL (81-99); Monocyte# 0.47 X10^3/uL; Monocyte% 5.6 % (0-10); NRBC Flagged by Analyzer 0 % (0-5); Neutrophil # 4.33 X10^3/uL (2.7-7.7); Neutrophil % 51.3 % (47-70); Platelet Count 335 K/mm3 (150-450); RBC Distribution Width CV 12.9 % (11.6-14.6); RBC Distribution Width SD 40.9 fl (35.1-43.9); Red Blood Count 4.33 M/mm3 (4.2-5.4); White Blood Count 8.4 K/mm3 (4.4-11.0)
[2024-03-24 17:09] LABS: D-Dimer Quantitative (DVT/PE) 0.41 FEU/ug/m (0.27-0.49)
[2024-03-24] MEDS: Nitroglycerin SL (ED/IMG/CATH) 0.4 MG TABLET SL ×2 (17:09→17:14)
[2024-03-24] MEDS: Aspirin 81 MG TAB.CHEW 162 MG PO (17:09)
[2024-03-24 17:17] LABS: Anion Gap 7 (5-15); BUN 17 mg/dL (7-18); BUN/Creat Ratio 19.3 RATIO (10-20); Chloride 106 mmol/L (98-107); Creatinine, Serum 0.88 mg/dL (0.55-1.02); EST Glomerular Filtration Rate 69 mL/min (>60); Est Glom Filt Rate - Afr Amer 83 mL/min (>60); Estimated Creatinine Clearance 75.51 ml/min; Glucose 226 mg/dL (74-106); Sodium Level 140 mmol/L (136-145); Troponin-I HS (w/2H Reflex) 4 pg/mL (3.0-54.0)
--- NOTE | 2024-03-24 18:09 | HP.PCM.HOS_ITS ---
HPI - General General Date of Admission: 03/24/24 Date of Service: 03/24/24 Chief Complaint: Chest pain HPI Narrative MEKA RANGEL, is a 63 F with a significant history of hypertension, diabetes mellitus, 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 She had 2 episodes of chest pain and it all took her breath away. She describes initial chest pain as an electric shock. Later on the chest pain improved to an aching pain. She also had some tightness in her throat. Reportedly she does not feel the left side of her neck where she had a carotid endarterectomy but with her chest pain she felt pain at the left side of her neck. She denies any nausea, or vomiting. She denies diaphoresis. At the emergency department after a second nitroglycerin sublingual her chest pain went away. [facility] Medical History Acute frontal sinusitis, unspecified Hives Depression Migraines Kidney stones GERD (gastroesophageal reflux disease) IBS (irritable bowel syndrome) Type 2 diabetes mellitus Seasonal allergies History of stroke Seizures Hypertension Hyperlipemia Home Medications ?Medication ?Instructions ?Recorded ?Last Taken ?Type aspirin 81 mg chewable tablet 81 mg PO DAILY@0800 10/10/16 03/24/24 History cetirizine 10 mg capsule 10 mg PO QDAY #30 caps 03/12/18 03/24/24 Rx levetiracetam 750 mg tablet 750 mg PO BID #180 tabs 02/12/19 Unknown Rx (Keppra) magnesium oxide 500 mg capsule 500 mg PO DAILY #90 caps 10/31/20 03/24/24 Rx blood sugar diagnostic (Blood #100 ea 06/25/23 Unknown Rx Glucose Test strips) blood-glucose meter #1 ea 06/25/23 Unknown Rx lancets #200 ea 06/25/23 Unknown Rx potassium citrate 15 mEq (1,620 15 meq PO BID #180 tabs 06/25/23 Unknown Rx mg) tablet,extended release pravastatin 20 mg tablet 20 mg PO QHS #90 tabs 06/25/23 Unknown Rx gabapentin 100 mg capsule 100 mg PO TID 01/06/24 Unknown History allopurinol 100 mg tablet 100 mg PO DAILY #90 tabs 02/24/24 Unknown Rx amlodipine 5 mg tablet 5 mg PO DAILY #90 tabs 02/24/24 Unknown Rx glipizide 2.5 mg tablet, extended 2.5 mg PO DAILY #90 tabs 02/24/24 Unknown Rx release 24 hr losartan 50 mg tablet 50 mg PO DAILY #90 tabs 02/24/24 Unknown Rx metformin 1,000 mg tablet 1,000 mg PO QHS #90 tabs 02/24/24 Unknown Rx metformin 500 mg tablet 500 mg PO BREAKFAST #90 tabs 02/24/24 Unknown Rx omeprazole 20 mg capsule,delayed 20 mg PO DAILY #90 caps 02/24/24 Unknown Rx release dulaglutide 4.5 mg/0.5 mL 4.5 mg (0.5 mL) subcut QWEEK #2 mL 03/23/24 Unknown Rx subcutaneous pen injector metoprolol tartrate 50 mg tablet 50 mg PO BID #180 TABLETS 03/23/24 Unknown Rx Allergy/AdvReac Type Severity Reaction Status Date / Time No Known Allergies Allergy Verified 03/24/24 16:25 Family History Father Hypertension Heart disease Myocardial infarction Hyperlipemia Brother Epilepsy Mother Thyroid disorder Sister Lupus Surgical History History of partial hysterectomy History of carpal tunnel release History of right knee surgery History of shoulder surgery History of appendectomy Social History Smoking Status: Never smoker alcohol intake: never substance use type: does not use what type of physical activity do you participate in: none ROS ROS Narrative Pertinent positives and pertinent negatives as noted in HPI. All other systems were reviewed and are negative Vital Signs Vital Signs Vital Signs: 03/24/24 16:25 03/24/24 16:55 03/24/24 17:09 Temperature 96.2 F L Temperature Source Temporal Pulse Rate 90 82 Respiratory Rate 18 Blood Pressure 140/101 H 146/79 H Blood Pressure Mean 114 Pulse Ox 95 94 Oxygen Delivery Method Room Air Room Air 03/24/24 17:14 03/24/24 17:24 03/24/24 18:00 Temperature Temperature Source Pulse Rate 88 85 86 Respiratory Rate 14 12 Blood Pressure 146/79 H 151/91 H 156/82 H Blood Pressure Mean 111 106 Pulse Ox 93 93 Oxygen Delivery Method Room Air Room Air Weight Weight: 100.698 kg Body Mass Index (BMI) 38.0 Physical Exam Narrative Physical exam: General: Well-nourished, well-developed. Head: Normocephalic, atraumatic, no tenderness Eyes: Vision is grossly intact. EOMI ENT, no trauma, moist mucous membranes, no rhinorrhea Neck: Nontender, No thyromegaly. CVS: Regular rate and rhythm. S1-S2 present. No murmur, gallop or rub. Respiratory : clear to auscultation bilaterally, chest wall nontender Abdomen: Soft, nontender, nondistended, normal bowel sounds, no masses : Deferred Back: Nontender, no CVA tenderness, no midline spinal tenderness, deformities, step-offs Extremities: Nontender full range of motion, no trauma Skin: Normal color, no trauma, abrasions Neuro: Alert, oriented, cranial nerves II through XII grossly intact. Psychiatry: Normal mood. Normal affect. Not depressed. Not anxious. Results Lab / Micro Data 03/24/24 16:53 03/24/24 16:53 Labs: Laboratory Results - last 24 hr 03/24/24 16:53: WBC 8.4, RBC 4.33, Hgb 12.2, Hct 37.6, MCV 86.8, MCH 28.2, MCHC 32.4, RDW Std Deviation 40.9, RDW Coeff of [place]iedad 12.9, Plt Count 335, MPV 10.0, Immature Gran % (Auto) 0.500, Neut % (Auto) 51.3, Lymph % (Auto) 39.4, [place] % (Auto) 5.6, Eos % (Auto) 2.7, Baso % (Auto) 0.5, Absolute Neuts (auto) 4.3, Absolute Lymphs (auto) 3.32, Nucleated RBC % 0, D-Dimer Quant (PE/DVT) 0.41, Sodium 140, Potassium 4.0, Chloride 106, Carbon Dioxide 27.0, Anion Gap 7, BUN 17, Creatinine 0.88, Estim Creat Clear Calc 75.51, Est GFR (MDRD) Af Amer 83, Est GFR (MDRD) Non-Af 69, BUN/Creatinine Ratio 19.3, Glucose 226 H, Calcium 9.0, Troponin I High Sens 4 Imaging Radiology Impression Chest X-Ray 03/24/24 16:35 IMPRESSION: Cardiomegaly. No acute cardiopulmonary pathology Electronically Signed: Johnny Brito MD at 17:14 EDT Reading Location ID and State: [address] [place] [address] Tel , Service support , Assessment & Plan Assessment/Plan (1) History of diabetes mellitus: (2) History of hypertension: (3) Chest pain: QUALIFIERS: Chest pain type: other chest pain Qualified Code(s): R07.89 - Other chest pain (4) History of hypercholesterolemia: PLAN: Plan Place on a monitored bed at PCU Actual CXR image was independently visualized. No acute cardiopulmonary process was noted. But noted to have cardiomegaly. Agrees with radiology interpretation Actual EKG tracing was independently visualized. EKG tracing showed sinus rhythm with Q waves in inferior and anterior leads and with first-degree AV block. ASA 81 mg p.o. daily ordered SL NTG 0.4 mg prn as needed for chest pain ordered We will check lipid panel. Statin: Home statin will be continued Serial high intensity troponin negative Stat EKG as needed for chest pain Chemical stress test in the AM if the cardiac enzymes are negative . Treadmill stress test not done as patient reports right sided weakness and also he has a history of right knee surgery Hypertension Blood pressure is not within goal Home blood pressure medication continued. Hold metoprolol for stress test in AM. As needed hydralazine ordered. Trend blood pressure and adjust blood pressure medications. Diabetes mellitus type 2 Blood glucose is not within goal. On home Trulicity. Hold metformin. Glipizide continued. Continue correction scale insulin ordered Morbid obesity BMI: 38.1 kg/m?. Complicates care. Lifestyle modification recommended. DVT prophylaxis: SCD ordered. Advance care planning: Discussed with patient and family advanced directives as well as CODE STATUS. Explained various CODE STATUS: FULL CODE, DNR CCA, DNR CCA with no intubation, and DNR CC- and what each meant. Patient elected to be a full code with CPR and intubation if warranted. Order was placed. Her is surrogate decision maker. Time spent on discussion 16 minutes. Time spent in the patient's overall evaluation,decision-making process, review of diagnostic data, adjustment of management, discussion with other providers, nursing and ancillary staff involved in patient's care documentation, 75 minutes. Charges/Coding Visit Charges Inpatient E&M: 50939 Init Hosp L3 Procedures Hospitalists Procedures: 83603 Advncd Care Plan 30 Min
[2024-03-24 18:55] LABS: Reflex Troponin-HS? (from REC) Y
--- NOTE | 2024-03-24 19:34 | EKG12_ITS ---
Test Reason : AM EKG Blood Pressure : / mmHG Vent. Rate : 076 BPM Atrial Rate : 076 BPM P-R Int : 214 ms QRS Dur : 090 ms QT Int : 428 ms P-R-T Axes : 023 -29 007 degrees QTc Int : 481 ms Sinus rhythm with 1st degree A-V block Inferior infarct , age undetermined Anterior infarct , age undetermined Abnormal ECG When compared with ECG of 24-MAR-2024 20:06, MANUAL COMPARISON REQUIRED, DATA IS UNCONFIRMED Confirmed by NAVA COOPER, MAGDA ([id number]), editor managing newspaper ANISH RICE ([id number]) on 03/26/2024 5:57:36 AM Referred By: Venkat Ríos Confirmed By:MAGDA VICK MD
[2024-03-24 19:40] LABS: Troponin-I HS 3 pg/mL (3.0-54.0)
[2024-03-24] MEDS: levETIRAcetam 750 MG Tablet PO (22:10)
[2024-03-24] MEDS: Gabapentin 100 MG Capsule PO (22:10)
[2024-03-24] MEDS: Pravastatin 20 MG Tablet PO (22:10)
[2024-03-24] MEDS: POTASSIUM CITRATE 10 MEQ TABLET.ER PO (22:10)
[2024-03-24 23:25] LABS: Troponin-I HS < 3 pg/mL (3.0-54.0)
[2024-03-25 00:02] LABS: Bedside Glucose 152 mg/dL (74-106)
[2024-03-25 02:00] VITALS: BP 160/94; PULSE 84; RESP 18; TEMP 36.1; O2SAT 95
[2024-03-25 04:29] LABS: Absolute Lymphocyte Count 3.37 X10^3/uL (0.83-4.51); Absolute Neutrophil Count 3.8 X10^3/uL (2.0-7.7); Basophil# 0.04 X10^3/uL; Basophil% 0.5 % (0-1); Eosinophil# 0.26 X10^3/uL; Eosinophils% 3.3 % (0-5); Hematocrit 39.4 % (37-47); Hemoglobin 12.8 g/dL (12.0-15.0); Lymphocyte # 3.37 X10^3/ul (0.83-4.51); Lymphocyte % 42.6 % (19-41); Mean Corp Hgb Conc 32.5 g/dL (32-36); Mean Corpuscular Hgb 28.4 pg (27.0-32.0); Mean Corpuscular Volume 87.4 fL (81-99); Mean Platelet Vol. 10.1 fl (6.2-12.0); Monocyte# 0.46 X10^3/uL; Monocyte% 5.8 % (0-10); NRBC Flagged by Analyzer 0 % (0-5); Neutrophil # 3.76 X10^3/uL (2.7-7.7); Neutrophil % 47.4 % (47-70); Platelet Count 331 K/mm3 (150-450); RBC Distribution Width CV 12.9 % (11.6-14.6); RBC Distribution Width SD 40.9 fl (35.1-43.9); Red Blood Count 4.51 M/mm3 (4.2-5.4); White Blood Count 7.9 K/mm3 (4.4-11.0)
[2024-03-25 04:52] LABS: Anion Gap 7 (5-15); BUN 13 mg/dL (7-18); BUN/Creat Ratio 18.7 RATIO (10-20); Calcium,Total 9.1 mg/dL (8.5-10.1); Chloride 106 mmol/L (98-107); Cholesterol 167 mg/dL (200); Creatinine, Serum 0.69 mg/dL (0.55-1.02); EST Glomerular Filtration Rate 91 mL/min (>60); Est Glom Filt Rate - Afr Amer 110 mL/min (>60); Estimated Creatinine Clearance 96.04 ml/min; Glucose 176 mg/dL (74-106); High Density Lipoprotein 49 mg/dL; Sodium Level 140 mmol/L (136-145); Triglycerides 234 mg/dL; Very Low Density Lipoprotein 47 mg/dL (5-40)
--- NOTE | 2024-03-25 05:55 | EKG12_ITS ---
Test Reason : CP ADMIT Blood Pressure : / mmHG Vent. Rate : 080 BPM Atrial Rate : 080 BPM P-R Int : 200 ms QRS Dur : 074 ms QT Int : 374 ms P-R-T Axes : 023 -31 006 degrees QTc Int : 431 ms Normal sinus rhythm Left axis deviation Minimal voltage criteria for LVH, may be normal variant ( R in aVL ) Inferior infarct , age undetermined Confirmed by NAVA COOPER, MGADA ([id number]), story editor ANISH RICE ([id number]) on 03/25/2024 1:02:53 PM Referred By: Venkat Ríos Confirmed By:MAGDA VICK MD
[2024-03-25] MEDS: Losartan Potassium 50 MG Tablet PO (06:24)
[2024-03-25] MEDS: Aspirin 81 MG TAB.CHEW PO (06:25)
[2024-03-25 06:46] LABS: Bedside Glucose 174 mg/dL (74-106)
[2024-03-25 08:24] LABS: Hemoglobin A1c 7.4 % (3.8-5.6)
[2024-03-25] MEDS: amLODIPine 5 MG Tablet PO (08:35)
[2024-03-25 08:48] VITALS: BP 177/91; PULSE 83; RESP 16; TEMP 36.3; O2SAT 96
[2024-03-25] MEDS: glipiZIDE 2.5 MG TAB.ER.24 PO (11:15)
[2024-03-25] MEDS: Magnesium Chloride 64 MG Delay Rel.Tablet 128 MG PO (11:15)
[2024-03-25] MEDS: Allopurinol 100 MG Tablet PO (11:15)
[2024-03-25] MEDS: POTASSIUM CITRATE 10 MEQ TABLET.ER PO (11:15)
[2024-03-25] MEDS: Loratadine 10 MG Tablet PO (11:15)
[2024-03-25] MEDS: Pantoprazole Sodium 20 MG Tablet PO (11:15)
[2024-03-25] MEDS: levETIRAcetam 750 MG Tablet PO (11:16)
[2024-03-25] MEDS: Insulin Lispro 100 UNIT/ML INSULN.PEN SC (12:04)
[2024-03-25 12:23] LABS: Bedside Glucose 194 mg/dL (74-106)
--- NOTE | 2024-03-25 12:33 | STRESSREP ---
Stress Test Report Pharmacologic myocardial perfusion stress test. 63-year-old lady with a history of chest pain Resting EKG demonstrates sinus rhythm with a rate of 80 bpm. Resting blood pressure is 140/84 mmHg. 0.4 mg of regadenoson was infused per usual protocol followed by rapid intravenous saline flush injection. Continuous EKG monitoring was performed. The maximum heart rate was 115 bpm which was 73% of max impacted heart rate the maximum workload was 1 metabolic equivalent. At rest there were no ST or T wave changes noted to suggest ischemia and at peak infusion nonspecific ST changes were noted which did not meet the criteria for ischemia. No clinical angina is noted. The final blood pressure was 160/82 mmHg. Myocardial perfusion protocol. 14.8 mCi of technetium 99m sestamibi was injected at rest. 0.4 mg of regadenoson was infused per usual protocol. At peak infusion 44.2 mCi of technetium 99m sestamibi was injected stress images were obtained stress and rest images were reconstructed and compared in the short axis vertical long and horizontal long axis. Gated images were also obtained. Perfusion SPECT analysis: Review of the stress images demonstrate normal uptake of tracer noted in all areas of the myocardium. The resting images similar demonstrated normal uptake of tracer noted in all areas of the myocardium. No areas of reversibility are noted to suggest ischemia and no previous infarct is noted. Gated SPECT analysis: The gated ejection fraction is over 80. Conclusion: Normal pharmacologic myocardial perfusion stress test. Preserved ejection fraction.
[2024-03-25 13:16] VITALS: O2SAT 98
--- NOTE | 2024-03-25 13:22 | DCINST_ITS ---
Discharge Instructions Diet Discharge Diet: Low fat / Low cholesterol, 1800 Calorie Control Diet and Carb Control Diet Activity Discharge Activity: Return to Normal Activity Dressing / Incision Call your doctor if you observe: Fever of 101 or Higher, Shortness of breath, Dizziness, Fainting spells, Swelling in the ankles, Chest pain and Increased palpitations (irregular heartbeat) Follow Up Care Test Results: Test results from this visit will be discussed in further detail at your follow- up appointment, if applicable. Discharge Plan Admission Admit Date/Time: 03/24/24 18:22 Attending Provider: Gage Cortes Primary Care Provider: Waqas Velasquez Consulting Providers: Andrade Almodovar Discharge Orders/Prescriptions Prescriptions: Continued magnesium oxide 500 mg capsule 500 mg PO DAILY Qty: 90 1RF potassium citrate 15 mEq tablet extended release 15 meq PO BID Qty: 180 3RF pravastatin 20 mg tablet 20 mg PO QHS Qty: 90 3RF (DME) blood-glucose meter Kit See Rx Instructions .Route Qty: 1 1RF Rx Instructions: As directed (DME) Blood Glucose Test Strip See Rx Instructions .Route Qty: 100 2RF Rx Instructions: As directed (DME) lancets Misc See Rx Instructions .Route Qty: 200 1RF Rx Instructions: As directed gabapentin 100 mg capsule 100 mg PO TID aspirin 81 MG tablet,chewable 81 mg PO DAILY@0800 cetirizine 10 mg capsule 10 mg PO QDAY Qty: 30 2RF levetiracetam [Keppra] 750 mg tablet 750 mg PO BID Qty: 180 1RF allopurinol 100 mg tablet 100 mg PO DAILY Qty: 90 3RF amlodipine 5 mg tablet 5 mg PO DAILY Qty: 90 3RF glipizide 2.5 mg tablet extended release 24hr 2.5 mg PO DAILY Qty: 90 1RF losartan 50 mg tablet 50 mg PO DAILY Qty: 90 3RF metformin 500 mg tablet 500 mg PO BREAKFAST Qty: 90 3RF metformin 1,000 mg tablet 1,000 mg PO QHS Qty: 90 3RF omeprazole 20 mg capsule,delayed release(DR/EC) 20 mg PO DAILY Qty: 90 3RF dulaglutide 4.5 mg/0.5 mL pen injector 4.5 mg SC QWEEK Qty: 2 2RF Rx Instructions: inject into abdomen, thigh, or upper arm (deltoid muscle); rotate sites metoprolol tartrate 50 mg tablet 50 mg PO BID Qty: 180 3RF Referrals / Follow Up: Waqas Velasquez DO [Primary Care Provider] - Within 1 Week Disposition Disposition (needs filled in before D/C Order can be placed): Home, Self Care
--- NOTE | 2024-03-25 13:25 | DS.PCM_ITS ---
Providers Date of Admission: 03/24/24 Primary Care Physician: Dr. Waqas Velasquez, DO Reason For Visit: CHEST PAIN Diagnosis Discharge Diagnosis (1) History of diabetes mellitus: Status: Acute Code(s): Z86.39 - Personal history of other endocrine, nutritional and metabolic disease (2) History of hypertension: Status: Acute Code(s): Z86.79 - Personal history of other diseases of the circulatory system (3) Chest pain: Status: Acute Code(s): R07.9 - Chest pain, unspecified Qualifiers: Chest pain type: other chest pain Qualified Code(s): R07.89 - Other chest pain (4) History of hypercholesterolemia: Status: Acute Code(s): Z86.39 - Personal history of other endocrine, nutritional and metabolic disease Medications at Discharge Home Medications aspirin 81 mg chewable tablet 81 mg PO DAILY@0800 [facility] 10/10/16 cetirizine 10 mg capsule 10 mg PO QDAY allergies #30 caps 03/12/18 levetiracetam 750 mg tablet (Keppra) 750 mg PO BID seizures #180 tabs 02/12/19 magnesium oxide 500 mg capsule 500 mg PO DAILY supplement #90 caps 10/31/20 blood sugar diagnostic (Blood Glucose Test strips) #100 ea 06/25/23 blood-glucose meter #1 ea 06/25/23 lancets #200 ea 06/25/23 potassium citrate 15 mEq (1,620 mg) tablet,extended release 15 meq PO BID supplement #180 tabs 06/25/23 pravastatin 20 mg tablet 20 mg PO QHS cholesterol #90 tabs 06/25/23 gabapentin 100 mg capsule 100 mg PO TID nerve pain 01/06/24 allopurinol 100 mg tablet 100 mg PO DAILY gout #90 tabs 02/24/24 amlodipine 5 mg tablet 5 mg PO DAILY blood pressure #90 tabs 02/24/24 glipizide 2.5 mg tablet, extended release 24 hr 2.5 mg PO DAILY diabetes #90 tabs 02/24/24 losartan 50 mg tablet 50 mg PO DAILY blood pressure #90 tabs 02/24/24 metformin 1,000 mg tablet 1,000 mg PO QHS diabetes #90 tabs 02/24/24 metformin 500 mg tablet 500 mg PO BREAKFAST diabetes #90 tabs 02/24/24 omeprazole 20 mg capsule,delayed release 20 mg PO DAILY reflux #90 caps 02/24/24 dulaglutide 4.5 mg/0.5 mL subcutaneous pen injector 4.5 mg (0.5 mL) subcut QWEEK diabetes #2 mL 03/23/24 metoprolol tartrate 50 mg tablet 50 mg PO BID blood pressure #180 TABLETS 03/23/24 Hospital Course Operations None Procedures Nuclear stress test Summary of Care Provided Minutes Spent on Discharge: 33 Hospital Course: Per HPI: MEKA RANGEL, is a 63 F with a significant history of hypertension, diabetes mellitus, 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 She had 2 episodes of chest pain and it all took her breath away. She describes initial chest pain as an electric shock. Later on the chest pain improved to an aching pain. She also had some tightness in her throat. Reportedly she does not feel the left side of her neck where she had a carotid endarterectomy but with her chest pain she felt pain at the left side of her neck. She denies any nausea, or vomiting. She denies diaphoresis. At the emergency department after a second nitroglycerin sublingual her chest pain went away. Hospital Course: 1. Chest pain?60-year-old female came into the hospital with chest pain that started while she was driving. She says that she has been lifting her granddaughter who has mobility issues that she thought that it could be musculoskeletal however she has an extensive family history with heart attacks and needing stents. EKG and troponins were unremarkable, and stress test today was nonischemic. I discussed with her the plan for discharge today she expressed understanding of the risk benefits going home and would like to go home today. We did discuss lifestyle modifications especially given her comorbidities including diabetes and genetic risk factors with her family history. I do recommend she follow-up with her PCP in 3 to 5 days. 2. Essential hypertension, hyperlipidemia, type 2 diabetes, seizure disorder, GERD are all chronic medical conditions which complicate her care. Her home medications were continued where appropriate Physical Exam Narrative General: Alert, Oriented x3, Cooperative, No apparent distress HEENT: Atraumatic, PERRLA, EOMI, Normocephalic Oral: Moist Mucosa Neck: Supple, No JVD Lungs: Clear to auscultation, Normal air movement, No rhonchi, No wheeze, No rales Cardiovascular: Regular rate, Regular Rhythm, Normal S1, Normal S2, No murmurs Abdomen: Soft, Non Tender, Non-Distended, No Hepato-splenomegaly Extremities: No edema, Capillary Refill Less than 3 Seconds Skin: No rashes, No breakdown Musculoskeletal: No Tenderness to Palpation of Joints or Extremities Neurological: No focal neurological deficits, Motor Exam 5/5 strength throughout, Sensory exam intact to light touch and pain Psych/Mental Status: Normal Affect, Appropriate Weight / BMI Weight Weight: 220 lb 14.451 oz Body Mass Index (BMI) 37.9 ABG / Lab / Microbiology Data 03/25/24 04:00 03/25/24 04:00 Laboratory: Laboratory Results - last 24 hr 03/24/24 16:53: WBC 8.4, RBC 4.33, Hgb 12.2, Hct 37.6, MCV 86.8, MCH 28.2, MCHC 32.4, RDW Std Deviation 40.9, RDW Coeff of Piedad 12.9, Plt Count 335, MPV 10.0, Immature Gran % (Auto) 0.500, Neut % (Auto) 51.3, Lymph % (Auto) 39.4, [place] % (Auto) 5.6, Eos % (Auto) 2.7, Baso % (Auto) 0.5, Absolute Neuts (auto) 4.3, Absolute Lymphs (auto) 3.32, Nucleated RBC % 0, D-Dimer Quant (PE/DVT) 0.41, Sodium 140, Potassium 4.0, Chloride 106, Carbon Dioxide 27.0, Anion Gap 7, BUN 17, Creatinine 0.88, Estim Creat Clear Calc 75.51, Est GFR (MDRD) Af Amer 83, Est GFR (MDRD) Non-Af 69, BUN/Creatinine Ratio 19.3, Glucose 226 H, Calcium 9.0, Troponin I High Sens 4 03/24/24 19:00: Troponin I High Sens 3 03/24/24 22:52: Troponin I High Sens < 3 L 03/24/24 23:35: POC Glucose 152 H 03/25/24 04:00: WBC 7.9, RBC 4.51, Hgb 12.8, Hct 39.4, MCV 87.4, MCH 28.4, MCHC 32.5, RDW Std Deviation 40.9, RDW Coeff of Piedad 12.9, Plt Count 331, MPV 10.1, Immature Gran % (Auto) 0.400, Neut % (Auto) 47.4, Lymph % (Auto) 42.6 H, [place] % (Auto) 5.8, Eos % (Auto) 3.3, Baso % (Auto) 0.5, Absolute Neuts (auto) 3.8, Absolute Lymphs (auto) 3.37, Nucleated RBC % 0, Sodium 140, Potassium 4.0, Chloride 106, Carbon Dioxide 27.0, Anion Gap 7, BUN 13, Creatinine 0.69, Estim Creat Clear Calc 96.04, Est GFR (MDRD) Af Amer 110, Est GFR (MDRD) Non-Af 91, BUN/Creatinine Ratio 18.7, Glucose 176 H, Hemoglobin A1c 7.4 H, Calcium 9.1, T riglycerides 234 H, Cholesterol 167, LDL Cholesterol 71, VLDL Cholesterol 47 H, HDL Cholesterol 49 03/25/24 06:22: POC Glucose 174 H 03/25/24 12:03: POC Glucose 194 H Radiography Diagnostic Testing: Radiology Impression Chest X-Ray 03/24/24 16:35 IMPRESSION: Cardiomegaly. No acute cardiopulmonary pathology Electronically Signed: Johnny Brito MD at 17:14 EDT , D/C Instructions Discharge Diet: Low fat / Low cholesterol, 1800 Calorie Control Diet and Carb Control Diet Call your doctor if you observe: Fever of 101 or Higher, Shortness of breath, Dizziness, Fainting spells, Swelling in the ankles, Chest pain and Increased palpitations (irregular heartbeat) Meaningful Use Info Meaningful Use Meaningful Use Diagnoses (Choose all that apply): None applicable Ischemic Stroke Statin Dosing Therapy Reference: STATIN DOSE THERAPY REFERENCE: * Patients > 75 years receive moderate or high dose statin therapy. * Patients 75 years or YOUNGER should receive HIGH intensity statin dose unless contraindicated. You will be required to document reason for non-treatment if statin daily dose does not meet guidelines. HIGH DOSE STATIN THERAPY DAILY Atorvastatin > than or = to 40 mg Rosuvastatin > than or = to 20 mg Amlodipine + Atorvastatin > than or = to 2.5/40 mg Ezetimibe + Simvastatin 10/80 mg Simvastatin 80mg Discharge Plan Admission Admit Date/Time: 03/24/24 18:22 Attending Provider: Gage Cortes Primary Care Provider: Waqas Velasquez Consulting Providers: Andrade Almodovar Discharge Orders/Prescriptions Prescriptions: Continued magnesium oxide 500 mg capsule 500 mg PO DAILY Qty: 90 1RF potassium citrate 15 mEq tablet extended release 15 meq PO BID Qty: 180 3RF pravastatin 20 mg tablet 20 mg PO QHS Qty: 90 3RF (DME) blood-glucose meter Kit See Rx Instructions .Route Qty: 1 1RF Rx Instructions: As directed (DME) Blood Glucose Test Strip See Rx Instructions .Route Qty: 100 2RF Rx Instructions: As directed (DME) lancets Misc See Rx Instructions .Route Qty: 200 1RF Rx Instructions: As directed gabapentin 100 mg capsule 100 mg PO TID aspirin 81 MG tablet,chewable 81 mg PO DAILY@0800 cetirizine 10 mg capsule 10 mg PO QDAY Qty: 30 2RF levetiracetam [Keppra] 750 mg tablet 750 mg PO BID Qty: 180 1RF allopurinol 100 mg tablet 100 mg PO DAILY Qty: 90 3RF amlodipine 5 mg tablet 5 mg PO DAILY Qty: 90 3RF glipizide 2.5 mg tablet extended release 24hr 2.5 mg PO DAILY Qty: 90 1RF losartan 50 mg tablet 50 mg PO DAILY Qty: 90 3RF metformin 500 mg tablet 500 mg PO BREAKFAST Qty: 90 3RF metformin 1,000 mg tablet 1,000 mg PO QHS Qty: 90 3RF omeprazole 20 mg capsule,delayed release(DR/EC) 20 mg PO DAILY Qty: 90 3RF dulaglutide 4.5 mg/0.5 mL pen injector 4.5 mg SC QWEEK Qty: 2 2RF Rx Instructions: inject into abdomen, thigh, or upper arm (deltoid muscle); rotate sites metoprolol tartrate 50 mg tablet 50 mg PO BID Qty: 180 3RF Referrals / Follow Up: Waqas Velasquez, DO [Primary Care Provider] - Within 1 Week Disposition Disposition (needs filled in before D/C Order can be placed): Home, Self Care Charges/Coding Visit Charges Inpatient E&M: 29494 Disch Hosp >30min
--- NOTE | 2024-03-25 14:09 | CASEMGMT ---
Pt has an order for DC placed. MECHE CM to pt room at this time. Pt at bedside. Pt states that she is independent. Pt states that her will drive her home from the hospital. Pt denies further needs including HHC, OP Tx, SNF, CCN, or Pt Link. Pt states that she feels safe going home today and denies further questions or concerns at this time.
[2024-03-25 14:48] VITALS: BP 148/85; PULSE 98; RESP 16; TEMP 36.4; O2SAT 94
== END 2024-03-25 13:25 | disposition home or self-care (01) ==
LOC: ED 18:03 → PCU 18:33
PROVIDERS: Admitting Provider Hospitalist; Emergency Provider Emergency Medicine; PCP Family Medicine; Referring Provider Emergency Medicine; Visit Provider Family Medicine
DX: R07.89 Other chest pain (principal); I69.351 Hemiplegia and hemiparesis following cerebral infarction affecting right dominant side; G40.909 Epilepsy, unspecified, not intractable, without status epilepticus; E66.01 Morbid (severe) obesity due to excess calories; E11.9 Type 2 diabetes mellitus without complications; Z79.84 Long term (current) use of oral hypoglycemic drugs; Z79.82 Long term (current) use of aspirin; E78.00 Pure hypercholesterolemia, unspecified; I10 Essential (primary) hypertension; Z79.85 Long-term (current) use of injectable non-insulin antidiabetic drugs; Z79.899 Other long term (current) drug therapy; Z68.38 Body mass index [BMI] 38.0-38.9, adult
CPT/HCPCS: 36415; 71045; 78452; 80048; 80061; 82962; 83036; 84484; 85025; 85379; 93005; 93017; 99221; 99285; A9500; A4216; G0378; J2785

== ENCOUNTER 2024-06-18 09:30 | Outpatient (RCR) | payer MEDICARE, SELFPAY ==
--- NOTE | 2024-05-03 14:58 | HP.PTEVAL_ITS ---
Patient's Visit Information Visit Information Visit Information: MEKA RANGEL is a 63 year old F referred to Physical Therapy by TIFFANY Moreno with a diagnosis of dizzyness and giddiness. Date of Evaluation: 05/03/24 Physical Therapist: Sebastian Holland, [place], OCS, CSCS Visit Plan Frequency: 2x /Week Duration: 4-6 Weeks Plan: 2x/week for 4-6 weeks as needed for... 1. monitor and progress VOR adaptation exercises(doing VOR H and V 60 sec seated 6x/day now) 2. Balance exercises and progression(head movement and weight shifting)(foam and ec) 3. teach general strength for HEP to I. [employer] 1x/week adn EG 1x/week Subjective Subjective: Sees neuro 2x/yr since stroke 8 yrs ago. Modifies seizure meds and gets MRI every 3 yrs. Now has vertigo and has for a couple years. Getting worse. 3-4 weeks ago doing yard work pulling leaves to front yard and got dizzy. Had to hold self up. Also went to [facility] Friday night and lights messed with her eyes and turned to quick and needed lowered to the floor started spinning and lasted 20 minutes. Sat on floor and paramedics came and checked wheelchair to car. Could then walk to car at [employer]. Disabled so does not work form the stroke adn seizures. dizzyness if looks in front and moves head. Feels off with strenuous work. Lights were a problem at the [facility] but that is new. Sleep is not great for 8 yrs. No regular exercises. spends day running after grandkids and bringing Tia to therapy. Basic ADLs all I. 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 Objective Objective: Walks slow but steady into PT I. [facility] chair hesitantly but able without UE. Steps reciprocal with one rail required. Cervical aROM WFL, UE AROM WFL, no pain. reciprocal toe adn heel tap is good as is heel to lora test. strength UE adn LE 4-/5 except abd and ext hips 3+. - B hallpike ishaan tests and roll test today. Oculomotor: no nystagmus with gaze or head shake - skew eye deviation, - ocular tilt - head thrust normal pursuit and saccades VOR H and V with some quick goofy feeling after 30 seconds. Balance/Special Test Scores Functional Gait Assessment Score: 24 % Disability: 20.0000 CATSIB Score (Max score 120 seconds): 98 Dizziness Score: 32 Goals Goal 1:: FGA to limit fallr isk Goal Time Frame: 4-6 Weeks Goal 2:: Pt feel dizzy feeling is 75% improved overall and manageable Goal Time Frame: 4-6 Weeks Goal 3:: I appropriate home based vestibular and balance and strength ex to limit future problems. Goal Time Frame: 4-6 Weeks Goal 4:: DHI score 10 or less Goal Time Frame: 4-6 Weeks Rehabilitation Potential Physical Therapy Diagnosis: unsteady adn dizzyness limiting comfortable funciton. Rehabilitation Potential: Fair Anticipated Interventions Patient/Client Instruction: Educate patient on: Condition and Plan of Care For the Purpose of:: To improve muscle performance and motor function, To increase tolerance to activity/condition/position, To improve gait and locomotor functions and To improve safety with gait Therapeutic Exercise to Include: Strength training and Balance training Comment: adaptation For the Purpose of:: To increase tolerance to activity/condition/position, To improve ability of physical actions for home/community/work/leisure, To improve gait and locomotor functions and To improve safety Text: Thank you for the opportunity to evaluate your patient. For Medicare and Medicare HMO plans, please review the plan of care and approve it. It will need to be FAXED BACK to us at [phone] for Medicare purposes. For Medicare only, by signing this I certify the plan of care. Please let me know if there are questions or concerns regarding this plan of care. Physician Signature: Date:
--- NOTE | 2024-06-18 10:24 | HP.PTDCSUM ---
Discharge Summary D/C summary: It has been my pleasure to treat MEKA RANGEL referred by TIFFANY Moreno, with the diagnosis of dizzyness and giddiness for a total of 14 visit(s). Discharge Date: 06/18/24 Please see the following information for a summary of their discharge status. Subjective Subjective: Just finished PT session. Not feeling great Today. Passed out on couch one time . No problem in last 2-3 weeks. May be tired today b/c she did not sleep well last night. Just feels tired. Was doing better though. Not walking into [facility] anymore. Can walk down hallway without hitting wall. Even in the dark. Strength is improving. Will continue to workout as member here at [employer]. will do [employer] now. HEP: balance at home and strength in the gym. To doctor Velasquez end june. Neurologist in September. Overall Improvement % Improvement: 45 Objective Objective/Function: FGA is +5 DHI is much better. Feeling better, walking well today. Steps without railing but slight imbalance. Goals Goal 1:: FGA to limit fallr isk Goal Progress: Goal Met Goal 2:: Pt feel dizzy feeling is 75% improved overall and manageable Goal Progress: 45% Goal 3:: I appropriate home based vestibular and balance and strength ex to limit future problems. Goal Progress: Goal Met Goal 4:: DHI score 10 or less Goal Progress: Goal Met Plan Plan: d/c D/C Information d/c sentence: If there are questions or concerns regarding this patient's physical therapy, please feel free to call me at [phone]. Thank you for the referral of this patient. Sincerely, Sebastian Holland, DPT, OCS, CSCS Balance/Gait/Functional tests Balance/Special Test Scores Functional Gait Assessment Score: 27 % Disability: 10.0000 CATSIB Score (Max score 120 seconds): 110 Dizziness Score: 18 Improvement % Improvement: 45
== END 2024-06-18 13:22 | disposition home or self-care (01) ==
LOC: PT 09:30
PROVIDERS: PCP Family Medicine; Referring Provider Physician Assistant Medical; Visit Provider Physician Assistant Medical
DX: R42 Dizziness and giddiness (principal)
CPT/HCPCS: 97110; 97162

== ENCOUNTER → 2024-12-02 | Outpatient (CLI) | payer MEDICARE, SELFPAY ==
--- NOTE | 2024-12-02 09:10 | RAD_ITS ---
PROCEDURE: HIP, UNI W/ PELVIS 2-3 VIEWS 12/02/2024 REASON FOR EXAM: PAIN TECHNIQUE: HIP, UNI W/ PELVIS 2-3 VIEWS COMPARISON: None. FINDINGS: Calcific tendinosis at the trochanteric insertion of the gluteal tendons, more prominent on the left side. Chronic labral calcifications. Mild osteopenia of the visualized bones. Degenerative joint disease. No fracture or dislocation is seen. No lytic or blastic bone lesion is noted. RAD/HIP, UNI W/ Pelvis 2-3 Views IMPRESSION: Degenerative joint disease. Reading Location: [facility]
--- OUTSIDE RECORDS SUMMARY | 2024-12-02 09:41 | XMS RPT_ITS | CCD ---
Author Organization [facility] CliniSyri Care Team Providers Care Lottery Sales Clerk Name Role Phone BYRON VELASQUEZ DO Primary Care Physician Samples Roller Staker, Amy Unavailable Unavailable Dr. Byron Velasquez Primary Care Provider [phone] Dr. Byron Velasquez Attending Provider [phone] Dr. Byron Velasquez Referring Provider [phone] BYRON VELASQUEZ Primary Care Unavailable RAMU NICOLE DO Attending Unavailable BIRD MONTAGUE MD Attending Unavailable BYRON VELASQUEZ Primary Care Unavailable BYRON VELASQUEZ DO Primary Care Physician Dr. Byron Velasquez Primary Care Provider [phone] Dr. Byron Velasquez Attending Provider [phone] Dr. Byron Velasquez Referring Provider [phone] Gage Cortes Attending Unavailable Andrade Almodovar Consulting Unavailable Agyepong, Andrade Admitting Unavailable Ron, Byron R Primary Care Unavailable Ungur, Remus Referring Unavailable Deanna Welch Referring Unavailable Deanna Welch Attending Unavailable Ron, Byron R Primary Care Unavailable AgyepongAndrade Admitting Unavailable AgyepongAndrade Consulting Unavailable Brown, Byron R Primary Care Unavailable Ungur, Remus Referring Unavailable Aaron, Huron Attending Unavailable Gage Cortes Consulting Unavailable Gage Cortes Attending Unavailable ChapinyeAndrade colmenares Referring Unavailable Aaron, Huron Attending Unavailable Ron, Byron R Primary Care Unavailable Brown, Byron R Referring Unavailable Brown, Byron R Attending Unavailable Brown, Byron R Primary Care Unavailable Brown, Byron R Referring Unavailable Brown, Byron R Attending Unavailable Brown, Byron R Primary Care Unavailable Brown, Byron R Referring Unavailable Brown, Byron R Attending Unavailable Brown, Byron R Primary Care Unavailable Brown, Byron R Referring Unavailable Brown, Byron R Attending Unavailable Brown, Byron R Primary Care Unavailable Brown, Byron R Attending Unavailable Brown, Byron R Primary Care Unavailable Brown, Byron R Referring Unavailable Brown, Byron R Referring Unavailable Brown, Byron R Attending Unavailable Brown, Byron R Primary Care Unavailable Andrade Almodovar Attending Unavailable Ron CUADRA, Dr. Byron Caal Primary Care Provider Dr. Byron Velasquez DO Attending Provider Dr. Byron Velasquez DO Referring Provider Prasad Morrow Attending Provider Allergies Allergy Classification Reported Allergen(s) Allergy Type Date of Onset Reaction(s) Facility (3 sources) seasonal enviromental Propensity to adverse reactions to substance [facility] Work Phone: Medications Current Medications Medication Drug Class(es) Dates Sig (Normalized) Sig (Original) aspirin 81 mg chewable tablet (7 sources) Platelet Aggregation Inhibitor, Nonsteroidal Anti-inflammatory Drug Start: 10-10-2016 take 1 tablet by mouth once daily Aspirin 81 MG tablet,chewable Active 81 mg PO DAILY@0800 October 10, 2016 12:00am Start: 04-09-2016 aspirin 81 mg oral delayed release tablet Dose : 81 mg = 1 tab(s), Oral, qDay, # 30 tab(s), 0 Refill(s) Start Date: 04/09/16 Status: Ordered Start: 04-09-2016 aspirin 81 mg oral delayed release tablet Dose : 81 mg = 1 tab(s), Oral, qDay, # 30 tab(s), 0 Refill(s) Start Date: 04/09/16 Status: Ordered atorvastatin 40 mg oral tablet (3 sources) HMG-CoA Reductase Inhibitor Start: 07-03-2019 atorvastatin 40 mg oral tablet Dose : 40 mg = 1 tab(s), Oral, qDay, # 30 tab(s), 0 Refill(s), Pharmacy: [id number] Start Date: 07/03/19 Status: Ordered azithromycin 250 mg oral tablet (1 source) Macrolide Antimicrobial Start: 06-12-2022 End: 06-17-2022 azithromycin 250 mg oral tablet Take two (2) tablets day 1-then one (1) tablet, Oral, Daily, X 5 day(s), # 6 tab(s), 0 Refill(s), 06/17/22 9:00:00 EST, 97.7 Start Date: 06/12/22 Stop Date: 06/17/22 Status: Ordered Blood-Glucose Meter kit (1 source) Start: 2023 Blood-Glucose Meter kit Active 0 .Route 1 2023 1:00am As directed cetirizine hydrochloride 10 mg oral tablet (11 sources) Histamine-1 Receptor Antagonist Start: 09-06-2018 cetirizine 10 mg ora l tablet Dose : 10 mg = 1 tab(s), Oral, qPM, 0 Refill(s) Start Date: 09/06/18 Status: Ordered Start: 08-27-2017 End: 03-12-2018 take 1 capsule by mouth once daily Cetirizine 10 mg capsule Active 10 mg PO daily March 12, 2018 12:50pm Dulaglutide (20 sources) GLP-1 Receptor Agonist Start: 11-16-2024 Dulaglu tide (Trulicity) 4.5 mg/0.5 mL pen injector Active 4.5 mg SC EVERY WEEK November 16, 2024 8:30am Start: 04-07-2024 End: 11-16-2024 Dulaglutide 4.5 mg/0.5 mL pe n injector Discontinued 4.5 mg SC EVERY WEEK April 07, 2024 1:50pm November 16, 2024 8:30am inject into abdomen, thigh, or upper arm (deltoid muscle); rotate sites Start: 03-23-2024 End: 04-07-2024 Dulaglutide 4.5 mg/0.5 mL pe n injector Discontinued 4.5 mg SC EVERY WEEK March 23, 2024 2:49pm April 07, 2024 1:51pm inject into abdomen, thigh, or upper arm (deltoid muscle); rotate sites Start: 12-16-2023 End: 03-23-2024 Dulaglutide 4.5 mg/0.5 mL pe n injector Discontinued 4.5 mg SC EVERY WEEK December 16, 2023 4:19pm March 23, 2024 2:50pm inject into abdomen, thigh, or upper arm (deltoid muscle); rotate sites Start: 12-16-2023 End: 12-16-2023 Dulaglutide 4.5 mg/0.5 mL pe n injector Discontinued 3 mg SC EVERY WEEK December 16, 2023 2:54pm December 16, 2023 4:19pm inject into abdomen, thigh, or upper arm (deltoid muscle); rotate sites Start: 11-21-2023 End: 12-16-2023 Dulaglutide 3 mg/0.5 mL pen injector Discontinued 3 mg SC EVERY WEEK November 21, 2023 2:17pm December 16, 2023 2:54pm inject into abdomen, thigh, or upper arm (deltoid muscle); rotate sites Start: 12-25-2022 End: 11-21-2023 Dulaglutide 3 mg/0.5 mL pen injector Discontinued 3 mg SC EVERY WEEK December 25, 2022 1:50pm November 21, 2023 2:17pm inject into abdomen, thigh, or upper arm (deltoid muscle); rotate sites Start: 12-25-2022 Dulaglutide Ac tive 3 MG SC EVERY WEEK December 25, 2022 1:50pm inject into abdomen, thigh, or upper arm (deltoid muscle); rotate sites Start: 03-05-2022 End: 12-25-2022 Dulaglutide 3 mg/0.5 mL pen injector Discontinued 3 mg SC EVERY WEEK March 05, 2022 11:56am December 25, 2022 1:51pm inject into abdomen, thigh, or upper arm (deltoid muscle); rotate sites Start: 03-05-2022 End: 12-25-2022 Dulaglutide Discontinued 3 M G SC EVERY WEEK March 05, 2022 11:56am December 25, 2022 1:51pm inject into abdomen, thigh, or upper arm (deltoid muscle); rotate sites Start: 03-05-2022 Dulaglutide Ac tive 3 MG SC EVERY WEEK March 05, 2022 11:56am inject into abdomen, thigh, or upper arm (deltoid muscle); rotate sites Start: 05-17-2021 End: 03-05-2022 Dulaglutide 3 mg/0.5 mL pen injector Discontinued 3 mg SC EVERY WEEK May 17, 2021 2:58pm March 05, 2022 11:56am inject into abdomen, thigh, or upper arm (deltoid muscle); rotate sites Start: 05-17-2021 End: 03-05-2022 Dulaglutide Discontinued 3 M G SC EVERY WEEK May 17, 2021 2:58pm March 05, 2022 11:56am inject into abdomen, thigh, or upper arm (deltoid muscle); rotate sites Start: 05-03-2021 End: 05-17-2021 Dulaglutide (Trulicity) 3 mg /0.5 mL pen injector Discontinued 3 mg SC EVERY WEEK 2 May 03, 2021 2:38pm May 17, 2021 2:59pm inject into abdomen, thigh, or upper arm (deltoid muscle); rotate sites Start: 05-03-2021 End: 05-17-2021 Dulaglutide (Trulicity) 3 mg /0.5 mL pen injector Discontinued 3 MG SC EVERY WEEK 2 May 03, 2021 2:38pm May 17, 2021 2:59pm inject into abdomen, thigh, or upper arm (deltoid muscle); rotate sites Start: 09-06-2018 Trulicity Pen 1.5 mg/0.5 mL subcutaneous solution Dose : 1.5 mg = 0.5 mL, Subcutaneous, Friday, Refill(s) Start Date: 09/06/18 Status: Ordered Start: 10-14-2017 End: 05-03-2021 Dulaglutide (Trulicity) 1.5 mg/0.5 mL pen injector Discontinued 1.5 mg SC EVERY WEEK August 18, 2020 9:14am May 03, 2021 2:59pm inject into abdomen, thigh, or upper arm (deltoid muscle); rotate sites Start: 02-08-2016 End: 10-14-2017 Dulaglutide 0.75 mg/0.5 mL p en injector Discontinued 0.75 mg SC Q7D October 14, 2017 8:48am October 14, 2017 8:54am gabapentin 100 mg oral capsule (1 source) Anti-epileptic Agent Start: 01-06-2024 take 1 capsule by mouth three times daily Gabapentin 100 mg capsule Active 100 mg PO THREE TIMES A DAY January 06, 2024 12:00am glipiZIDE er 2.5 mg 24 hr extended release oral tablet (20 sources) Sulfonylurea Start: 12-25-2022 End: 10-19-2024 take 1 tablet by mouth once daily Glipizide 2.5 mg tablet extended release 24hr Active 2.5 mg PO DAILY October 19, 2024 8:13am Start: 04-25-2020 End: 09-29-2022 take 1 tablet by mouth once daily Glipizide 2.5 mg tablet extended release 24hr Discontinued 2.5 mg PO DAILY April 19, 2022 8:02am September 29, 2022 11:45am meloxicam 7.5 mg oral tablet (1 source) Nonsteroidal Anti-inflammatory Drug Start: 12-01-2024 take 1 tablet by mouth twice daily Meloxicam 7.5 mg tablet Active 7.5 mg PO TWICE A DAY December 01, 2024 12:00am ofloxacin 3 mg/ml ophthalmic solution (1 source) Quinolone Antimicrobial Start: 12-01-2024 Ofloxacin 0.3 % drops Active NMA OPHTHALMIC December 01, 2024 12:00am potassium citrate 15 meq extended release oral tablet (20 sources) Start: 09-06-2018 potassium citrate 15 mEq oral tablet, extended release Dose : 15 mEq = 1 tab(s), Oral, BID, 0 Refill(s) Start Date: 09/06/18 Status: Ordered Start: 12-13-2016 End: 10-19-2024 take 1 tablet by mouth twice daily Potassium Citrate 15 mEq tablet extended release Active 15 meq PO TWICE A DAY October 19, 2024 10:36am pravastatin sodium 20 mg oral tablet (20 sources) HMG-CoA Reductase Inhibitor Start: 04-18-2015 End: 07-13-2024 take 1 tablet by mouth at bedtime Pravastatin 20 mg tablet Active 20 mg PO AT BEDTIME July 13, 2024 2:43pm Completed/Discontinued Medications Medication Drug Class(es) Dates Sig (Normalized) Sig (Original) acetaminophen 325 mg / HYDROcodone bitartrate 5 mg oral tablet (4 sources) Opioid Agonist Start: 03-30-2019 End: 04-03-2019 Hydrocodone-Acetami nophen 1 TABLET tablet Discontinued 1 {tbl} PO EVERY 6 HOURS NEEDED as needed for Pain 03 18March 30, 2019 April 01, 2019 12:00am April 03, 2019 12:09am Start: 03-30-2019 End: 04-03-2019 take 1 tablet by mouth every six hours as needed Hydrocodone-Acetaminophen Discontinued 1 TABLET PO EVERY 6 HOURS NEEDED 03 18March 30, 2019 April 03, 2019 12:09am acetaminophen 325 mg / oxyCODONE hydrochloride 5 mg oral tablet (4 sources) Opioid Agonist Start: 08-06-2018 End: 08-09-2018 Oxycodone-Acetaminophen 1 TABLET tablet Discontinued 1 {tbl} PO EVERY 6 HOURS NEEDED as needed for Pain 12 August 06, 2018 1:00am August 08, 2018 1:00am August 09, 2018 1:08am Start: 08-06-2018 End: 08-09-2018 take 1 tablet by mouth every six hours as needed Oxycodone-Acetaminophen Discontinued 1 TABLET PO EVERY 6 HOURS NEEDED 12 August 06, 2018 1:00am August 09, 2018 1:08am allopurinol 100 mg oral tablet (20 sources) Xanthine Oxidase Inhibitor Start: 12-13-2016 End: 02-24-2024 take 1 tablet by mouth once daily Allopurinol 100 mg tablet Discontinued 100 mg PO DAILY October 16, 2022 3:52pm December 25, 2022 1:51pm amLODIPine 5 mg oral tablet (20 sources) Dihydropyridine Calcium Channel Stu Start: 11-21-2016 End: 02-24-2024 take 1 tablet by mouth once daily Amlodipine 5 mg tablet Discontinued 5 mg PO DAILY October 16, 2022 3:52pm December 25, 2022 1:51pm amoxicillin 500 mg oral capsule (4 sources) Penicillin-class Antibacterial Start: 08-31-2024 End: 12-01-2024 take 1 capsule by mouth three times daily Amoxicillin 500 mg capsule Discontinued 500 mg PO THREE TIMES A DAY August 31, 2024 12:00am December 01, 2024 2:52pm Start: 09-29-2022 End: 10-09-2022 take 1 tablet by mouth twice daily Amoxicillin 500 mg tablet Discontinued 500 mg PO TWICE A DAY 04 04September 29, 2022 12:00am October 08, 2022 12:00am October 09, 2022 12:04am amoxicillin 875 mg / clavulanate 125 mg oral tablet (20 sources) Penicillin-class Antibacterial Start: 10-27-2021 End: 03-05-2022 Amoxicillin-Pot Clavulanate 875-125 mg tablet Discontinued 1 {tbl} PO TWICE A DAY October 27, 2021 12:00am March 05, 2022 11:37am Start: 10-27-2021 End: 03-05-2022 take 1 tablet by mouth twice daily Amoxicillin-Pot Clavulanate Discontinued 1 TABLET PO TWICE A DAY October 27, 2021 12:00am March 05, 2022 11:37am Start: 03-21-2021 End: 03-31-2021 Amoxicillin-Pot Clavulanate (Augmentin) 875-125 mg tablet Discontinued 1 {tbl} PO Q12H 04 04March 21, 2021 12:00am March 30, 2021 12:00am March 31, 2021 12:01am Start: 05-05-2020 End: 07-26-2020 Amoxicillin-Pot Clavulanate (Augmentin) 875-125 mg tablet Discontinued 1 {tbl} PO TWICE A DAY May 05, 2020 1:00am July 26, 2020 11:41am Start: 08-06-2019 End: 08-16-2019 Amoxicillin-Pot Clavulanate (Augmentin) 875-125 mg tablet Discontinued 1 {tbl} PO Q12H 04 04August 06, 2019 1:00am August 15, 2019 1:00am August 16, 2019 1:09am Start: 05-26-2019 End: 07-21-2019 Amoxicillin-Pot Clavulanate 875-125 mg tablet Discontinued 1 {tbl} PO TWICE A DAY May 26, 2019 1:00am July 21, 2019 10:29am Start: 05-26-2019 End: 07-21-2019 take 1 tablet by mouth twice daily Amoxicillin-Pot Clavulanate Discontinued 1 TABLET PO TWICE A DAY May 26, 2019 1:00am July 21, 2019 10:29am Start: 10-01-2017 End: 10-14-2017 Amoxicillin-Pot Clavulanate 875-125 mg tablet Discontinued 1 {tbl} PO Q12H October 01, 2017 12:00am October 14, 2017 8:43am Start: 10-01-2017 End: 10-14-2017 take 1 tablet by mouth every twelve hours Amoxicillin-Pot Clavulanate Discontinued 1 TABLET PO Q12H October 01, 2017 12:00am October 14, 2017 8:43am cephalexin 500 mg oral capsule (1 source) Cephalosporin Antibacterial Start: 09-08-2024 End: 12-01-2024 take 1 capsule by mouth three times daily Cephalexin 500 mg capsule Discontinued 500 mg PO THREE TIMES A DAY September 08, 2024 12:00am December 01, 2024 2:52pm diclofenac sodium 0.01 mg/mg topical gel (8 sources) Nonsteroidal Anti-inflammatory Drug Start: 03-05-2022 End: 03-24-2024 Diclofenac Sodium (Voltaren Arthritis Pain) 1 % gel Discontinued 4 g TOPICAL ONCE March 05, 2022 11:52am March 24, 2024 5:15pm apply to sore joints BID Start: 01-31-2021 End: 03-05-2022 Diclofenac Sodium (Voltaren Arthritis Pain) 1 % gel Discontinued 4 g TOPICAL ONCE January 31, 2021 12:00am March 05, 2022 11:53am apply to single knee, ankle, foot; for foot includes sole/toes/top of foot Start: 01-31-2021 End: 03-05-2022 Diclofenac Sodium (Voltaren Arthritis Pain) 1 % gel Discontinued 4 GM TOPICAL ONCE January 31, 2021 12:00am March 05, 2022 11:53am apply to single knee, ankle, foot; for foot includes sole/toes/top of foot fluconazole 200 mg oral tablet (20 sources) Azole Antifungal Start: 09-08-2024 End: 12-01-2024 take 1 tablet by mouth once daily Fluconazole (Diflucan) 200 mg tablet Discontinued 200 mg PO daily September 08, 2024 12:00am December 01, 2024 2:52pm Start: 06-12-2022 End: 06-13-2022 Diflucan 150 mg oral tablet Dose : 150 mg = 1 tab(s), Oral, qDay, # 1 tab(s), 0 Refill(s), 06/13/22 9:00:00 EST, 97.7 Start Date: 06/12/22 Stop Date: 06/13/22 Status: Ordered Start: 08-06-2019 End: 10-20-2019 Fluconazole (Diflucan) 150 m g tablet Discontinued 150 mg PO Every 3 Days 2 0 August 31, 2019 8:24am October 20, 2019 10:48am may repeat second dose 72 hrs after first dose if symptoms persist Start: 05-26-2019 End: 03-05-2022 Fluconazole 200 mg tablet Di scontinued 200 mg PO DAILY 2 November 05, 2021 4:01pm March 05, 2022 11:37am Take 1 tablet once, repeat in 3 days if symptoms do not improve. Glucaphage (4 sources) Start: 08-06-2018 End: 08-28-2018 Glucaphage Discontinued 1 August 06, 2018 1:00am August 28, 2018 1:28pm isopropyl alcohol 0.7 ml/ml medicated pad (1 source) Start: 2023 End: 03-24-2024 Alcohol Swabs (Alcohol Pads) pads, medicated Discontinued 1 NMA TOPICAL THREE TIMES A DAY 2023 1:00am March 24, 2024 5:15pm levETIRAcetam 750 mg oral tablet (20 sources) Start: 09-06-2018 End: 02-12-2019 take 1 tablet by mouth twice daily Levetiracetam (Keppra) 750 mg tablet Discontinued 750 mg PO TWICE A DAY 180 January 14, 2019 4:25pm February 12, 2019 9:46am Start: 08-28-2018 End: 01-14-2019 take 1 tablet by mouth twice daily Levetiracetam 500 mg tablet Discontinued 500 mg PO TWICE A DAY August 28, 2018 1:30pm January 14, 2019 4:17pm Start: 08-06-2018 End: 01-14-2019 take 2 tablets by mouth twice daily Levetiracetam (Keppra) 250 mg tablet Discontinued 250 mg PO TWICE A DAY 180 August 06, 2018 1:00am January 14, 2019 4:17pm to take with the 500 mg tablets Start: 10-10-2016 End: 08-28-2018 Levetiracetam 500 mg tablet Discontinued 750 mg PO TWICE A DAY 180 July 23, 2018 2:40pm August 28, 2018 1:32pm Start: 10-10-2016 End: 08-28-2018 take 750 mg by mouth twice daily Levetiracetam Discontinued 750 MG PO TWICE A DAY 180 July 23, 2018 2:40pm August 28, 2018 1:32pm losartan potassium 50 mg oral tablet (20 sources) Angiotensin 2 Receptor Stu Start: 02-15-2016 End: 02-24-2024 take 1 tablet by mouth once daily Losartan 50 mg tablet Discontinued 50 mg PO DAILY October 16, 2022 3:52pm December 25, 2022 1:51pm magnesium oxide 500 mg oral capsule (12 sources) Start: 04-26-2020 End: 10-31-2020 take 1 capsule by mouth once daily Magnesium Oxide 500 mg capsule Discontinued 500 mg PO DAILY August 24, 2020 5:25pm October 31, 2020 9:47am metFORMIN hydrochloride 1000 mg oral tablet (20 sources) Biguanide Start: 03-30-2019 End: 02-24-2024 take 1 tablet by mouth at breakfast Metformin 500 mg tablet Discontinued 500 mg PO WITH BREAKFAST October 16, 2022 3:53pm December 25, 2022 1:51pm Start: 08-06-2018 End: 02-24-2024 take 1 tablet by mouth at bedtime Metformin 1,000 mg tablet Discontinued 1000 mg PO AT BEDTIME October 16, 2022 3:53pm December 25, 2022 1:51pm Start: 07-18-2013 End: 08-27-2017 take 1 tablet by mouth at bedtime Metformin 1,000 MG tablet Discontinued 1000 mg PO AT BEDTIME July 18, 2013 1:00am August 27, 2017 2:10pm Start: 02-03-2013 End: 07-23-2018 take 1 tablet by mouth three times daily Metformin 500 mg tablet Discontinued 500 mg PO THREE TIMES A DAY 180 May 29, 2018 1:47pm July 23, 2018 2:42pm Start: 02-03-2013 End: 09-20-2021 take 1 tablet by mouth once daily Metformin 500 MG tablet Discontinued 500 mg PO DAILY January 30, 2016 12:00am August 27, 2017 2:12pm metoclopramide 10 mg oral tablet (4 sources) Dopamine-2 Receptor Antagonist Start: 12-04-2017 End: 03-04-2018 take 1 tablet by mouth every six hours 30 minutes before bedtime Metoclopramide Hcl (Reglan) 10 mg tablet Discontinued 10 mg PO EVERY 6 HOURS December 04, 2017 12:00am March 04, 2018 1:20pm take 30 minutes before meals and at bedtime metoprolol tartrate 50 mg oral tablet (20 sources) beta-Adrenergic Stu Start: 08-16-2017 End: 03-23-2024 take 1 tablet by mouth twice daily Metoprolol Tartrate 50 mg tablet Discontinued 50 mg PO TWICE A DAY February 28, 2021 11:37am March 05, 2022 11:56am omeprazole 20 mg delayed release oral capsule (20 sources) Proton Pump Inhibitor Start: 07-18-2013 End: 02-24-2024 take 1 capsule by mouth once daily Omeprazole 20 mg capsule,delayed release(DR/EC) Discontinued 20 mg PO DAILY October 16, 2022 3:53pm December 25, 2022 1:51pm ondansetron 4 mg disintegrating oral tablet (4 sources) Serotonin-3 Receptor Antagonist Start: 08-06-2018 End: 08-28-2018 take 1 tablet by mouth every eight hours as needed for nausea Ondansetron 4 MG tablet Discontinued 4 mg PO EVERY 8 HOURS NEEDED as needed for Nausea August 06, 2018 1:00am August 28, 2018 1:29pm predniSONE 10 mg oral tablet (3 sources) Start: 03-23-2021 End: 04-04-2021 prednisone 10mg tab (TAPER) Taper 40-30-20-10 x 3 days each dose, Oral, qDay, Take with food/meal, # 30 tab(s), 0 Refill(s), COVID-19 detected Start Date: 03/23/21 Stop Date: 04/04/21 Status: Ordered tamsulosin hydrochloride 0.4 mg oral capsule (4 sources) alpha-Adrenergic Stu Start: 08-06-2018 End: 08-28-2018 take 1 capsule by mouth once daily Tamsulosin 0.4 MG capsule Discontinued 0.4 mg PO DAILY August 06, 2018 1:00am August 28, 2018 1:30pm Problems Active Problems Problem Classification Problem Date Documented Da te Episodic/Chronic Abdominal pain (3 sources) Abdominal pain 01-31-2016 Episodic Acute cerebrovascular disease (3 sources) Cerebrovascular accident 04-09-2016 Chronic Comment on above: 02-08-16, minor strok e. residual right sided weakness. some minor speech deficit. memory loss Allergic reactions (4 sources) Urticaria; Translations: [Urticaria, unspecified] 08-27-2017 Episodic Anxiety disorders (6 sources) Anxiety; Translations: [Panic attack] 04-09-2016 Chronic Comment on above: no meds Calculus of urinary tract (11 sources) Kidney stone; Translations: [Calculus of kidney] 04-16-2015 Episodic Comment on above: 2CM RIGHT UPJ STONE WITH HYDRO. Cataract (3 sources) Cataract 01-31-2016 Chronic Comment on above: right forming Diabetes mellitus with complications (1 source) Type 2 diabetes mellitus with hyperglycemia; Translations: [Type 2 diabetes mellitus with hyperglycemia] Onset: 5 Chronic Diabetes mellitus without complication (13 sources) Type 2 diabetes mellitus; Translations: [Type 2 diabetes mellitus without complications] 07-03-2019 Chronic Disorders of lipid metabolism (7 sources) Hyperlipidemia; Translations: [Hyperlipidemia, unspecified] 07-03-2019 Chronic Disorders of teeth and jaw (4 sources) Periapical abscess without sinus; Translations: [Infection of tooth] Onset: 5 10-12-2024 Episodic Epilepsy; convulsions (7 sources) Seizure; Translations: [Unspecified convulsions] 07-03-2019 Episodic Comment on above: last seizure 02-08-16 , grand mal in nature, has had some more mild seizure like activity since, localized in right hand. on meds now and has not had any seizure or activity since meds started. Esophageal disorders (7 sources) Gastroesophageal reflux disease; Translations: [Gastro-esophageal reflux disease without esophagitis] 07-03-2019 Chronic Essential hypertension (11 sources) Hypertensive disorder; Translations: [Essential (primary) hypertension] 07-03-2019 Chronic Comment on above: well controlled Headache; including migraine (7 sources) Migraine; Translations: [Migraine, unspecified, not intractable, without status migrainosus] 01-31-2016 Chronic Mood disorders (8 sources) Depressive disorder; Translations: [Depression] Chronic Nonspecific chest pain (7 sources) Chest pain; Translations: [Chest pain, unspecified] Onset: 4 04-21-2019 Episodic Occlusion or stenosis of precerebral arteries (3 sources) Carotid artery stenosis 07-03-2019 Chronic Osteoarthritis (5 sources) Osteoarthritis; Translations: [Unspecified osteoarthritis, unspecified site] Chronic Other circulatory disease (8 sources) History of cerebrovascular accident; Translations: [Personal history of transient ischemic attack (TIA), and cerebral infarction without residual deficits] 05-17-2021 Episodic Comment on above: She has no neurologi c deficit from her stroke. Other circulatory disease (2 sources) Personal history of transient ischemic attack (TIA), and cerebral infarction without residual deficits; Translations: [Personal history of transient ischemic attack (TIA), and cerebral infarction without residual deficits] 12-25-2022 Episodic Other circulatory disease (1 source) H/O: hypertension; Translations: [Personal history of other diseases of the circulatory system] 03-24-2024 Episodic Other connective tissue disease (4 sources) Cramp; Translations: [Cramp and spasm] 04-25-2020 Episodic Other connective tissue disease (3 sources) Lateral epicondylitis of left humerus; Translations: [Lateral epicondylitis, left elbow] 12-25-2022 Episodic Other connective tissue disease (2 sources) Lateral epicondylitis, left elbow; Translations: [Lateral epicondylitis] 12-25-2022 Episodic Other gastrointestinal disorders (7 sources) Irritable bowel syndrome; Translations: [Irritable bowel syndrome without diarrhea] 01-31-2016 Chronic Other hereditary and degenerative nervous system conditions (1 source) Essential tremor; Translations: [Essential tremor] 2023 Chronic Other lower respiratory disease (3 sources) Chronic cough 01-31-2016 Episodic Other nervous system disorders (4 sources) Finding of hand region; Translations: [Tremor, unspecified] 08-02-2021 Episodic Comment on above: according to the favio rologist tremor is related to the old CVA Other non-traumatic joint disorders (5 sources) Pain in left knee; Translations: [Left knee pain] 05-17-2021 Episodic Comment on above: Patient has rather a 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 Other non-traumatic joint disorders (2 sources) Hip pain; Translations: [Pain in left hip] 12-01-2024 Episodic Other nutritional; endocrine; and metabolic disorders (2 sources) Personal history of other endocrine, nutritional and metabolic disease; Translations: [Personal history of other endocrine, nutritional and metabolic disease] Onset: Episodic Other nutritional; endocrine; and metabolic disorders (1 source) History of hypercholesterolemia; Translations: [Personal history of other endocrine, nutritional and metabolic disease] 03-24-2024 Episodic Other nutritional; endocrine; and metabolic disorders (1 source) H/O: diabetes mellitus; Translations: [Personal history of other endocrine, nutritional and metabolic disease] 03-24-2024 Episodic Other skin disorders (4 sources) Inflamed seborrheic keratosis; Translations: [Inflamed seborrheic keratosis] 12-02-2019 Episodic Other upper respiratory disease (3 sources) Seasonal allergy 01-31-2016 Chronic Other upper respiratory disease (4 sources) Seasonal allergic rhinitis; Translations: [Other seasonal allergic rhinitis] 08-27-2017 Chronic Other upper respiratory disease (2 sources) Other seasonal allergic rhinitis; Translations: [Allergic rhinitis, cause unspecified] 03-26-2023 Chronic Other upper respiratory infections (20 sources) Acute frontal sinusitis; Translations: [Acute frontal sinusitis, unspecified] Onset: 5 10-27-2021 Episodic Residual codes; unclassified (3 sources) Poor short-term memory 04-09-2016 Episodic Residual codes; unclassified (4 sources) History of cardiovascular surgery; Translations: [Other specified postprocedural states] 05-03-2021 Episodic Skin and subcutaneous tissue infections (4 sources) Cellulitis of face; Translations: [Cellulitis of face] 10-01-2017 Episodic Superficial injury; contusion (4 sources) Contusion of right ankle; Translations: [Contusion of right ankle, initial encounter] 08-16-2017 Episodic Unclassified (3 sources) Breast feeding (infant) (observable entity) 07-01-2019 Comment on above: System added from do cumentation. Breast feeding Status documented as Yes on Admission Unclassified (3 sources) Eye glasses, device (physical object) 01-31-2016 Past or Other Problems Problem Classification Problem Date Documented Da te Episodic/Chronic Conditions associated with dizziness or vertigo (1 source) Dizziness and giddiness; Translations: [Dizziness and giddiness] Onset: 06-18-2024 Episodic Other circulatory disease (1 source) Personal history of other diseases of the circulatory system; Translations: [Personal history of other diseases of the circulatory system] Onset: 04-02-2024 Episodic Results Test Name Value Interpretation Reference Range Facility Internal Medicine Office Vis ines 10-12-2024 Internal Medicine Office Visit [facility] [address] [place] [address] [place], [place] [address] OFFICE VISIT Date of Service: 10/12/24 MR#: [id number] Acct: [id number] Name: EMERITA RANGEL Rep #: [id number] : 1960 Provider: Dr. Byron Shepard own, DO Age/Sex: 64/F Location: [facility] Status: Signed Intake Vital Signs 07/13/24 13:20 09/08/24 14:57 10/12/24 13:38 Height 5 ft 4 in 5 ft 4 in 5 ft 4 in Weight: 216 lb 6 oz BMI 37.1 BP 108/68 Blood Pressure Location Rt brachial Position Sitting Respiration 16 Pulse 77 Pulse Source Monitor Temp 97.1 F L Temp Source Temporal Pulse Oximetry (%) 97 Oxygen Delivery Method room air Intake Visit Reasons: 3 M FU Chief Complaint: fu Online Marketing Strategist Required: No Accompanied by: Self Is patient in pain?: No Allergies No Known Allergies Allergy (Verified 10/12/24 13:30) Medications ???Medication ???Instructions ???Recorded ???Confirmed ???Type aspirin 81 mg chewable tablet 81 mg PO DAILY@0800 heart health 0 10/10/16 10/12/24 History cetirizine 10 mg capsule 10 mg PO QDAY allergies #30 caps 0 03/12/18 10/12/24 Rx levetiracetam 750 mg tablet 750 mg PO BID seizures #180 tabs 0 02/12/19 10/12/24 Rx (Keppra) magnesium oxide 500 mg capsule 500 mg PO DAILY supplement #90 cap s 10/31/20 10/12/24 Rx blood sugar diagnostic (Blood #100 ea 06/25/23 10/12/24 Rx Glucose Test strips) blood-glucose meter #1 ea 06/25/23 10/12/24 Rx lancets #200 ea 06/25/23 10/12/24 Rx gabapentin 100 mg capsule 100 mg PO TID nerve pain 01/06/24 10/12/24 History allopurinol 100 mg tablet 100 mg PO DAILY gout #90 tabs 02/1410/12/24 Rx amlodipine 5 mg tablet 5 mg PO DAILY blood pressure #90 0 02/24/24 10/12/24 Rx tabs glipizide 2.5 mg tablet, extended 2.5 mg PO DAILY diabetes #90 tabs 02/24/24 10/12/24 Rx release 24 hr losartan 50 mg tablet 50 mg PO DAILY blood pressure #90 02/24/24 10/12/24 Rx tabs metformin 1,000 mg tablet 1,000 mg PO QHS diabetes #90 tabs 02/24/24 10/12/24 Rx metformin 500 mg tablet 500 mg PO BREAKFAST diabetes #90 0 02/24/24 10/12/24 Rx tabs omeprazole 20 mg capsule,delayed 20 mg PO DAILY reflux #90 caps 04/0810/12/24 Rx release metoprolol tartrate 50 mg tablet 50 mg PO BID blood pressure #180 1 10/12/24 Rx TABLETS dulaglutide 4.5 mg/0.5 mL 4.5 mg (0.5 mL) subcut QWEEK 04/0710/12/24 Rx subcutaneous pen injector diabetes #6 mL pravastatin 20 mg tablet 20 mg PO QHS cholesterol #90 tabs 07/13/24 10/12/24 Rx amoxicillin 500 mg capsule 500 mg PO TID #30 caps 08/31/24 Rx potassium citrate 15 mEq (1,620 15 meq PO BID #200 TABLETS 09/07/2 5 10/12/24 Rx mg) tablet,extended release cephalexin 500 mg capsule 500 mg PO TID #20 caps 09/08/24 Rx fluconazole 200 mg tablet 200 mg PO QDAY #3 tabs 09/08/24 Rx (Diflucan) Have you fallen in the past year?: No PFSH Medical History Acute sinusitis Acute frontal sinusitis, unspecified Hives Depression Migraines Kidney stones GERD (gastroesophageal reflux disease) IBS (irritable bowel syndrome) Type 2 diabetes mellitus Seasonal allergies History of stroke Seizures Hypertension Hyperlipemia Surgical History History of partial hysterectomy History of carpal tunnel release History of right knee surgery History of shoulder surgery History of appendectomy Family History Father Hypertension Heart disease Myocardial infarction Hyperlipemia Brother Epilepsy Mother Thyroid disorder Sister Lupus Social History Smoking Status: Never smoker alcohol intake: never substance use type: does not use what type of physical activity do you participate in: none HPI HPI Chief Complaint: fu Details: EMERITA RANGEL, is a 64 F who presents to the office today for a follow up on her diabetes. ROS Const Constitutional: No body ache, excessive sweating, fatigue, fever(s), frequent falls, headache(s), snoring, weakness, weight change, sleep problems or change in appetite Eyes Eyes: No blurry vision, change in vision, eye pain or Light sensitivity ENT ENT: No abnormal hearing, ear or mastoid pain, tinnitus, nasal congestion, headache(s), neck pain or sore throat Resp Respiratory: No cough, shortness of breath, snoring or wheezing Cardio Cardiology: No chest pain at rest, chest pain with exertion, excessive sweating, shortness of breath, dyspnea on exertion, lightheadedness, orthopnea or palpitations Gastro GI: No abdominal pain, change in bowel habits, constipation, cramping, diarrhea, nausea/dyspepsia o (more content not included)... Normal [facility] Laboratory - Hematology and Cell countsOrdered By: Byron Velasquez on 10-12-2024 HbA1c (Bld) [Mass fraction] 7.6 % High 4.2-6.3 [facility] Internal Medicine Office Vis iton 09-08-2024 Internal Medicine Office Visit [facility] [address] [place] [address] OFFICE VISIT Date of Service: 09/08/24 MR#: [id number] Acct: [id number] Name: EMERITA RANGEL Rep #: [id number] : 1960 Provider: Dr. Byron Caal Br own, DO Age/Sex: 64/F Location: [facility] Status: Signed Intake Vital Signs 08/31/24 10:32 09/08/24 14:57 Height 5 ft 4 in 5 ft 4 in Weight: 210 lb 212 lb BMI 36.0 36.3 BP 134/76 H 110/70 Blood Pressure Location Lt brachial Lt brachial Position Sitting Sitting Respiration 18 14 Pulse 74 62 Pulse Source Monitor Monitor Temp 98.0 F 97.9 F Temp Source Temporal Temporal Pulse Oximetry (%) 96 99 Oxygen Delivery Method room air room air Intake Visit Reasons: pain in rt ear Chief Complaint: pain in the right ear Online Marketing Strategist Required: No Is patient in pain?: Yes (R ear) Pain scale (1-10): 7 Allergies No Known Allergies Allergy (Verified 09/08/24 14:49) Medications ???Medication ???Instructions ???Recorded ???Confirmed ???Type aspirin 81 mg chewable tablet 81 mg PO DAILY@0800 heart health 0 10/10/16 09/08/24 History cetirizine 10 mg capsule 10 mg PO QDAY allergies #30 caps 0 03/12/18 09/08/24 Rx levetiracetam 750 mg tablet 750 mg PO BID seizures #180 tabs 0 02/12/19 09/08/24 Rx (Keppra) magnesium oxide 500 mg capsule 500 mg PO DAILY supplement #90 cap s 10/31/20 09/08/24 Rx blood sugar diagnostic (Blood #100 ea 06/25/23 09/08/24 Rx Glucose Test strips) blood-glucose meter #1 ea 06/25/23 09/08/24 Rx lancets #200 ea 06/25/23 09/08/24 Rx gabapentin 100 mg capsule 100 mg PO TID nerve pain 01/06/24 09/08/24 History allopurinol 100 mg tablet 100 mg PO DAILY gout #90 tabs 02/1409/08/24 Rx amlodipine 5 mg tablet 5 mg PO DAILY blood pressure #90 0 02/24/24 09/08/24 Rx tabs glipizide 2.5 mg tablet, extended 2.5 mg PO DAILY diabetes #90 tabs 02/24/24 09/08/24 Rx release 24 hr losartan 50 mg tablet 50 mg PO DAILY blood pressure #90 02/24/24 09/08/24 Rx tabs metformin 1,000 mg tablet 1,000 mg PO QHS diabetes #90 tabs 02/24/24 09/08/24 Rx metformin 500 mg tablet 500 mg PO BREAKFAST diabetes #90 0 02/24/24 09/08/24 Rx tabs omeprazole 20 mg capsule,delayed 20 mg PO DAILY reflux #90 caps 04/0809/08/24 Rx release metoprolol tartrate 50 mg tablet 50 mg PO BID blood pressure #180 1 09/08/24 Rx TABLETS dulaglutide 4.5 mg/0.5 mL 4.5 mg (0.5 mL) subcut QWEEK 04/0709/08/24 Rx subcutaneous pen injector diabetes #6 mL pravastatin 20 mg tablet 20 mg PO QHS cholesterol #90 tabs 07/13/24 09/08/24 Rx amoxicillin 500 mg capsule 500 mg PO TID #30 caps 08/31/24 Rx potassium citrate 15 mEq (1,620 15 meq PO BID #200 TABLETS 09/07/2 5 09/08/24 Rx mg) tablet,extended release cephalexin 500 mg capsule 500 mg PO TID #20 caps 09/08/24 Rx fluconazole 200 mg tablet 200 mg PO QDAY #3 tabs 09/08/24 Rx (Diflucan) Nurse's Note: States that friday she started w/ R ear pain has alot of pain that hurts into the jaw, and into the skull behind her ear. Pushing anywhere on that side hurts so bad. Can hear her heartbeat in it. Is not having any discharge fluid or even wax coming out. Has about 2 days left of atbs. Has been treating w/ tylneol which has not helped. Thinks she has some hearing difficulty out of that ear as it sounds further away. [facility] Medical History Acute sinusitis Acute frontal sinusitis, unspecified Hives Depression Migraines Kidney stones GERD (gastroesophageal reflux disease) IBS (irritable bowel syndrome) Type 2 diabetes mellitus Seasonal allergies History of stroke Seizures Hypertension Hyperlipemia Surgical History History of partial hysterectomy History of carpal tunnel release History of right knee surgery History of shoulder surgery History of appendectomy Family History Father Hypertension Heart disease Myocardial infarction Hyperlipemia Brother Epilepsy Mother Thyroid disorder Sister Lupus Social History Smoking Status: Never smoker alcohol intake: never substance use type: does not use what type of physical activity do you participate in: none HPI HPI Chief Complaint: pain in the right ear Details: EMERITA RANGEL, is a 64 F who presents to the office today for right ear pain. The pain started about 3 days ago. She is on amoxicillin for a sinus infection and has 2 days of medicine left. ROS Const Constitutional: No body ache, chills, excessive sweating, fatigue, fever(s), frequent (more content not included)... Normal [facility] Internal Medicine Office Vis ines 08-31-2024 Internal Medicine Office Visit [facility] [address] [place], [place] [address] OFFICE VISIT Date of Service: 08/31/24 MR#: [id number] Acct: [id number] Name: EMERITA RANGEL Rep #: [id number] : 1960 Provider: Dr. Byron mota, Age/Sex: 64/F Location: [facility] [place] Status: Signed Intake Vital Signs 07/13/24 13:20 08/31/24 10:32 Height 5 ft 4 in 5 ft 4 in Weight: 215 lb 4 oz 210 lb BMI 36.9 36.0 BP 132/78 H 134/76 H Blood Pressure Location Lt brachial Lt brachial Position Sitting Sitting Respiration 12 18 Pulse 75 74 Pulse Source Monitor Monitor Temp 98 F 98.0 F Temp Source Temporal Temporal Pulse Oximetry (%) 94 96 Oxygen Delivery Method room air room air Intake Visit Reasons: POSSIBLE SINUS INFECTION Chief Complaint: POSSIBLE SINUS INFECTION Is patient in pain?: No Allergies No Known Allergies Allergy (Verified 08/31/24 10:33) Medications ???Medication ???Instructions ???Recorded ???Confirmed ???Type aspirin 81 mg chewable tablet 81 mg PO DAILY@0800 heart health 0 10/10/16 08/31/24 History cetirizine 10 mg capsule 10 mg PO QDAY allergies #30 caps 0 03/12/18 08/31/24 Rx levetiracetam 750 mg tablet 750 mg PO BID seizures #180 tabs 0 02/12/19 08/31/24 Rx (Keppra) magnesium oxide 500 mg capsule 500 mg PO DAILY supplement #90 cap s 10/31/20 08/31/24 Rx blood sugar diagnostic (Blood #100 ea 06/25/23 08/31/24 Rx Glucose Test strips) blood-glucose meter #1 ea 06/25/23 08/31/24 Rx lancets #200 ea 06/25/23 08/31/24 Rx potassium citrate 15 mEq (1,620 15 meq PO BID supplement #180 tabs 06/25/23 08/31/24 Rx mg) tablet,extended release gabapentin 100 mg capsule 100 mg PO TID nerve pain 01/06/24 08/31/24 History allopurinol 100 mg tablet 100 mg PO DAILY gout #90 tabs 02/1408/31/24 Rx amlodipine 5 mg tablet 5 mg PO DAILY blood pressure #90 0 02/24/24 08/31/24 Rx tabs glipizide 2.5 mg tablet, extended 2.5 mg PO DAILY diabetes #90 tabs 02/24/24 08/31/24 Rx release 24 hr losartan 50 mg tablet 50 mg PO DAILY blood pressure #90 02/24/24 08/31/24 Rx tabs metformin 1,000 mg tablet 1,000 mg PO QHS diabetes #90 tabs 02/24/24 08/31/24 Rx metformin 500 mg tablet 500 mg PO BREAKFAST diabetes #90 0 02/24/24 08/31/24 Rx tabs omeprazole 20 mg capsule,delayed 20 mg PO DAILY reflux #90 caps 04/0808/31/24 Rx release metoprolol tartrate 50 mg tablet 50 mg PO BID blood pressure #180 1 08/31/24 Rx TABLETS dulaglutide 4.5 mg/0.5 mL 4.5 mg (0.5 mL) subcut QWEEK 04/0708/31/24 Rx subcutaneous pen injector diabetes #6 mL pravastatin 20 mg tablet 20 mg PO QHS cholesterol #90 tabs 07/13/24 08/31/24 Rx amoxicillin 500 mg capsule 500 mg PO TID #30 caps 08/31/24 Rx Have you fallen in the past year?: No Nurse's Note: pt reports that she started with a respiratory infection about 2 weeks ago, she states she has not been seen for this or tested for covid or flu. pt states that she has chills and a congested cough, feels like her tonsils are swollen PFSH Medical History (Updated 08/31/24 @ 10:[address] Byron Velasquez, DO) Acute sinusitis Acute frontal sinusitis, unspecified Hives Depression Migraines Kidney stones GERD (gastroesophageal reflux disease) IBS (irritable bowel syndrome) Type 2 diabetes mellitus Seasonal allergies History of stroke Seizures Hypertension Hyperlipemia Surgical History History of partial hysterectomy History of carpal tunnel release History of right knee surgery History of shoulder surgery History of appendectomy Family History Father Hypertension Heart disease Myocardial infarction Hyperlipemia Brother Epilepsy Mother Thyroid disorder Sister Lupus Social History Smoking Status: Never smoker alcohol intake: never substance use type: does not use what type of physical activity do you participate in: none HPI HPI Chief Complaint: POSSIBLE SINUS INFECTION Details: EMERITA RANGEL, is a 64 F who presents to the office today for sinus pain. About 2 weeks ago this patient started with upper respiratory tract infection symptoms nasal congestion and cough. She has also been quite fatigued. She seemed to get better taking Mucinex D but then 3 or 4 days ago the pressure in her sinuses got worse she had a lot of tenderness especially when she leans her head forward and she has a lot of drainage down the back of her throat. The cough improved somewhat. ROS Const Constitutional: No body ache, chills, excessive sweating, fatigue, fever(s), frequent falls, headache(s), snoring, weight change, sleep problems, abnormal sle (more content not included)... Normal [facility] Internal Medicine Office Vis iton 07-13-2024 Internal Medicine Office Visit [facility] [address] [place] [address] OFFICE VISIT Date of Service: 07/13/24 MR#: [id number] Acct: [id number] Name: EMERITA RANGEL Rep #: [id number] : 1960 Provider: Dr. Byron mota, DO Age/Sex: 64/F Location: [facility] Status: Signed Intake Vital Signs 04/07/24 13:27 07/13/24 13:20 Height 5 ft 4 in 5 ft 4 in Weight: 219 lb 215 lb 4 oz BMI 37.5 36.9 BP 112/78 132/78 H Blood Pressure Location Lt brachial Lt brachial Position Sitting Sitting Respiration 14 12 Pulse 80 75 Pulse Source Monitor Monitor Temp 97.4 F L 98 F Temp Source Temporal Temporal Pulse Oximetry (%) 92 94 Oxygen Delivery Method room air room air Intake Visit Reasons: 3 m fu Chief Complaint: 3 M FU Online Marketing Strategist Required: No Accompanied by: Is patient in pain?: No Allergies No Known Allergies Allergy (Verified 07/13/24 13:04) Medications ???Medication ???Instructions ???Recorded ???Confirmed ???Type aspirin 81 mg chewable tablet 81 mg PO DAILY@0800 heart health 10/10/16 07/13/24 History cetirizine 10 mg capsule 10 mg PO QDAY allergies #30 caps 03/12/18 07/13/24 Rx levetiracetam 750 mg tablet 750 mg PO BID seizures #180 tabs 02/12/19 07/13/24 Rx (Keppra) magnesium oxide 500 mg capsule 500 mg PO DAILY supplement #90 caps 10/31/20 07/13/24 Rx blood sugar diagnostic (Blood #100 ea 06/25/23 07/13/24 Rx Glucose Test strips) blood-glucose meter #1 ea 06/25/23 07/13/24 Rx lancets #200 ea 06/25/23 07/13/24 Rx potassium citrate 15 mEq (1,620 15 meq PO BID supplement #180 tabs 06/25/23 07/13/24 Rx mg) tablet,extended release gabapentin 100 mg capsule 100 mg PO TID nerve pain 01/06/24 07/13/24 History allopurinol 100 mg tablet 100 mg PO DAILY gout #90 tabs 02/24/24 07/13/24 Rx amlodipine 5 mg tablet 5 mg PO DAILY blood pressure #90 02/24/24 07/13/24 Rx tabs glipizide 2.5 mg tablet, extended 2.5 mg PO DAILY diabetes #90 tabs 02/24/24 07/13/24 Rx release 24 hr losartan 50 mg tablet 50 mg PO DAILY blood pressure #90 02/24/24 07/13/24 Rx tabs metformin 1,000 mg tablet 1,000 mg PO QHS diabetes #90 tabs 02/24/24 07/13/24 Rx metformin 500 mg tablet 500 mg PO BREAKFAST diabetes #90 02/24/24 07/13/24 Rx tabs omeprazole 20 mg capsule,delayed 20 mg PO DAILY reflux #90 caps 02/24/24 07/13/24 Rx release metoprolol tartrate 50 mg tablet 50 mg PO BID blood pressure #180 03/23/24 07/13/24 Rx TABLETS dulaglutide 4.5 mg/0.5 mL 4.5 mg (0.5 mL) subcut QWEEK 04/07/24 07/13/24 Rx subcutaneous pen injector diabetes #6 mL pravastatin 20 mg tablet 20 mg PO QHS cholesterol #90 tabs 07/13/24 07/13/24 Rx Have you fallen in the past year?: No PFSH Medical History Acute frontal sinusitis, unspecified Hives Depression Migraines Kidney stones GERD (gastroesophageal reflux disease) IBS (irritable bowel syndrome) Type 2 diabetes mellitus Seasonal allergies History of stroke Seizures Hypertension Hyperlipemia Surgical History History of partial hysterectomy History of carpal tunnel release History of right knee surgery History of shoulder surgery History of appendectomy Family History Father Hypertension Heart disease Myocardial infarction Hyperlipemia Brother Epilepsy Mother Thyroid disorder Sister Lupus Social History Smoking Status: Never smoker alcohol intake: never substance use type: does not use what type of physical activity do you participate in: none HPI HPI Chief Complaint: 3 M FU Details: EMERITA RANGEL, is a 64 F who presents to the office today for for her 3-month diabetic checkup. Her only complaint is fatigue because she is watching multiple grandchildren all the time. ROS Const Constitutional: No body ache, excessive sweating, fatigue, fever(s), frequent falls, headache(s), snoring, weakness, weight change, sleep problems or change in appetite Eyes Eyes: No blurry vision, change in vision, eye pain or Light sensitivity ENT ENT: No abnormal hearing, ear or mastoid pain, tinnitus, nasal congestion, headache(s), neck pain or sore throat Resp Respiratory: No cough, shortness of breath, snoring or wheezing Cardio Cardiology: No chest pain at rest, chest pain with exertion, excessive sweating, shortness of breath, dyspnea on exertion, lightheadedness, orthopnea or palpitations Gastro GI: No abdominal pain, change in bowel habits, constipation, cramping, diarrhea, nausea/dyspepsia or vomiting Genitourinary-Femal e: No burning urination, painful urination, urinary incontinence, urinary frequency, blood in ur (more content not included)... Normal [facility] PT D/C Summary (1)on 025 PT D/C Summary (1) [facility] Physical Therapy [facility] [address] [place] [address] / REHABILITATION SERVICES DISCHARGE SUMMARY MR#: [id number] Acct: [id number] Name: EMERITA RANGEL Rep #: [id number] : 1960 63 From: Sebastian Holland DPT, OCS, CSCS Referring Dr.: TIFFANY oMreno Status: REG RCR Insurance: [facility] SELF PAY INSURANCE Discharge Summary D/C summary: It has been my pleasure to treat EMERITA RANGEL referred by TIFFANY Moreno, with the diagnosis of dizzyness and giddiness for a total of 14 visit(s). Discharge Date: 06/18/24 Please see the following information for a summary of their discharge status. Subjective Subjective: Just finished PT session. Not feeling great Today. Passed out on couch one time . No problem in last 2-3 weeks. May be tired today b/c she did not sleep well last night. Just feels tired. Was doing better though. Not walking into [facility] anymore. Can walk down hallway without hitting wall. Even in the dark. Strength is improving. Will continue to workout as member here at [employer]. will do Silver [employer] now. HEP: balance at home and strength in the gym. To doctor Velasquez end june. Neurologist in September. Overall Improvement % Improvement: 45 Objective Objective/Function: FGA is +5 DHI is much better. Feeling better, walking well today. Steps without railing but slight imbalance. Goals Goal 1:: FGA to limit fallr isk Goal Progress: Goal Met Goal 2:: Pt feel dizzy feeling is 75% improved overall and manageable Goal Progress: 45% Goal 3:: I appropriate home based vestibular and balance and strength ex to limit future problems. Goal Progress: Goal Met Goal 4:: DHI score 10 or less Goal Progress: Goal Met Plan Plan: d/c D/C Information d/c sentence: If there are questions or concerns regarding this patient's physical therapy, please feel free to call me at [phone]. Thank you for the referral of this patient. Sincerely, Sebastian Holland DPT, BIANCA, CARA Balance/Gait/Functi onal tests Balance/Special Test Scores Functional Gait Assessment Score: 27 % Disability: 10.0000 CATSIB Score (Max score 120 seconds): 110 Dizziness Score: 18 Improvement % Improvement: 45 06/18/24 1024 CC: Dr. Byron Velasquez, DO; TIFFANY Moreno EBG Signed Normal [facility] Inital Evaluation (1) - PTon 05-03-2024 Inital Evaluation (1) - PT [facility] [address] [place] [id number] / REHABILITATION SERVICES INITIAL EVALUATION MR#: [id number] Acct: [id number] Name: EMERITA RANGEL Rep #: [id number] : 1960 63 From: BIANCA Feng DPT, CARA Referring Dr.: TIFFANY Moreno Status: REG R Insurance: [facility] SELF PAY INSURANCE Patient's Visit Information Visit Information Visit Information: EMERITA RANGEL is a 63 year old F referred to Physical Therapy by TIFFANY Moreno with a diagnosis of dizzyness and giddiness. Date of Evaluation: 05/03/24 Physical Therapist: Sebastian Holland DPT, BIANCA, CARA Visit Plan Frequency: 2x /Week Duration: 4-6 Weeks Plan: 2x/week for 4-6 weeks as needed for... 1. monitor and progress VOR adaptation exercises(doing VOR H and V 60 sec seated 6x/day now) 2. Balance exercises and progression(head movement and weight shifting)(foam and ec) 3. 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 Modifies seizure meds and gets MRI every 3 yrs. Now has vertigo and has for a couple years. Getting worse. 3-4 weeks ago doing yard work pulling leaves to front yard and got dizzy. Had to hold self up. Also went to [place] Friday night and lights messed with her eyes and turned to quick and needed lowered to the floor started spinning and lasted 20 minutes. Sat on floor and paramedics came and checked wheelchair to car. Could then walk to car at [employer]. Disabled so does not work form the stroke adn seizures. dizzyness if looks in front and moves head. Feels off with strenuous work. Lights were a problem at the [employer] but that is new. Sleep is not great for 8 yrs. No regular exercises. spends day running after grandkids and bringing Tia to therapy. Basic ADLs all I. 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 Objective Objective: Walks slow but steady into PT I. [facility] chair hesitantly but able without UE. Steps reciprocal with one rail required. Cervical aROM WFL, UE AROM WFL, no pain. reciprocal toe adn heel tap is good as is heel to lora test. strength UE adn LE 4-/5 except abd and ext hips 3+. - B hallpike ishaan tests and roll test today. Oculomotor: no nystagmus with gaze or head shake - skew eye deviation, - ocular tilt - head thrust normal pursuit and saccades VOR H and V with some quick goofy feeling after 30 seconds. Balance/Special Test Scores Functional Gait Assessment Score: 24 % Disability: 20.0000 CATSIB Score (Max score 120 seconds): 98 Dizziness Score: 32 Goals Goal 1:: FGA to limit fallr isk Goal Time Frame: 4-6 Weeks Goal 2:: Pt feel dizzy feeling is 75% improved overall and manageable Goal Time Frame: 4-6 Weeks Goal 3:: I appropriate home based vestibular and balance and strength ex to limit future problems. Goal Time Frame: 4-6 Weeks Goal 4:: DHI score 10 or less Goal Time Frame: 4-6 Weeks Rehabilitation Potential Physical Therapy Diagnosis: unsteady adn dizzyness limiting comfortable funciton. Rehabilitation Potential: Fair Anticipated Interventions Patient/Client Instruction: Educate patient on: Condition and Plan of Care For the Purpose of:: To improve muscle performance and motor function, To increase tolerance to activity/condition/ position, To improve gait and locomotor functions and To improve safety with gait Therapeutic Exercise to Include: Strength training and Balance training Comment: adaptation For the Purpose of:: To increase tolerance to activity/condition/ position, To improve ability of physical actions for home/community/work /leisure, To improve gait and locomotor functions and To improve safety Text: Thank you for the opportunity to evaluate your patient. For Medicare and Medicare HMO plans, please review the plan of care and approve it. It will need to be FAXED BACK to us at [phone] for Medicare purposes. For Medicare only, by signing this I certify the plan of care. Please let me know if there are questions or concerns regarding this plan of care. Physician Signature: __Date: 05/03/24 1458 CC: Dr. Byron Velasquez DO; TIFFANY Moreno EBG Signed Normal [facility] Internal Medicine Office Vis ito 04-07-2024 Internal Medicine Office Visit [facility] [address] [place] [address] [place] [address] OFFICE VISIT Date of Service: 04/07/24 MR#: [id number] Acct: [id number] Name: EMERITA RANGEL Earl Rep #: [id number] : 1960 Provider: Dr. Byron mota DO Age/Sex: 63/F Location: [facility] Status: Signed Intake Vital Signs 01/06/24 13:31 03/24/24 19:39 04/07/24 13:27 Height 5 ft 4 in 5 ft 4 in 5 ft 4 in Weight: 219 lb BMI 37.5 BP 112/78 Blood Pressure Location Lt brachial Position Sitting Respiration 14 Pulse 80 Pulse Source Monitor Temp 97.4 F L Temp Source Temporal Pulse Oximetry (%) 92 Oxygen Delivery Method room air Intake Visit Reasons: 3 M FU Chief Complaint: 3 M FU Online Marketing Strategist Required: No Is patient in pain?: No Allergies No Known Allergies Allergy (Verified 04/07/24 13:22) Medications ???Medication ???Instructions ???Recorded ???Confirmed ???Type aspirin 81 mg chewable tablet 81 mg PO DAILY@0800 heart health 10/10/16 04/07/24 History cetirizine 10 mg capsule 10 mg PO QDAY allergies #30 caps 03/12/18 04/07/24 Rx levetiracetam 750 mg tablet 750 mg PO BID seizures #180 tabs 02/12/19 04/07/24 Rx (Keppra) magnesium oxide 500 mg capsule 500 mg PO DAILY supplement #90 caps 10/31/20 04/07/24 Rx blood sugar diagnostic (Blood #100 ea 06/25/23 04/07/24 Rx Glucose Test strips) blood-glucose meter #1 ea 06/25/23 04/07/24 Rx lancets #200 ea 06/25/23 04/07/24 Rx potassium citrate 15 mEq (1,620 15 meq PO BID supplement #180 tabs 06/25/23 04/07/24 Rx mg) tablet,extended release pravastatin 20 mg tablet 20 mg PO QHS cholesterol #90 tabs 06/25/23 04/07/24 Rx gabapentin 100 mg capsule 100 mg PO TID nerve pain 01/06/24 04/07/24 History allopurinol 100 mg tablet 100 mg PO DAILY gout #90 tabs 02/24/24 04/07/24 Rx amlodipine 5 mg tablet 5 mg PO DAILY blood pressure #90 02/24/24 04/07/24 Rx tabs glipizide 2.5 mg tablet, extended 2.5 mg PO DAILY diabetes #90 tabs 02/24/24 04/07/24 Rx release 24 hr losartan 50 mg tablet 50 mg PO DAILY blood pressure #90 02/24/24 04/07/24 Rx tabs metformin 1,000 mg tablet 1,000 mg PO QHS diabetes #90 tabs 02/24/24 04/07/24 Rx metformin 500 mg tablet 500 mg PO BREAKFAST diabetes #90 02/24/24 04/07/24 Rx tabs omeprazole 20 mg capsule,delayed 20 mg PO DAILY reflux #90 caps 02/24/24 04/07/24 Rx release metoprolol tartrate 50 mg tablet 50 mg PO BID blood pressure #180 03/23/24 04/07/24 Rx TABLETS dulaglutide 4.5 mg/0.5 mL 4.5 mg (0.5 mL) subcut QWEEK 04/07/24 04/07/24 Rx subcutaneous pen injector diabetes #6 mL Nurse's Note: declines flu vaccine. [facility] Medical History Acute frontal sinusitis, unspecified Hives Depression Migraines Kidney stones GERD (gastroesophageal reflux disease) IBS (irritable bowel syndrome) Type 2 diabetes mellitus Seasonal allergies History of stroke Seizures Hypertension Hyperlipemia Surgical History History of partial hysterectomy History of carpal tunnel release History of right knee surgery History of shoulder surgery History of appendectomy Family History Father Hypertension Heart disease Myocardial infarction Hyperlipemia Brother Epilepsy Mother Thyroid disorder Sister Lupus Social History Smoking Status: Never smoker alcohol intake: never substance use type: does not use what type of physical activity do you participate in: none HPI HPI Chief Complaint: 3 M FU Details: EMERITA RANGEL, is a 63 F who presents to the office today for a follow up exam. She had been seen in the emergency room with chest pain, but the stress test was normal. The pain was sharp brief and electrical. No cause was postulated by the attending physicians and review of all of her blood work and testing was normal. Her son is through the process of another divorce with his abandoning no children and all of them ending up at Emerita's house so again she is burdened with a lot of family issues. ROS Const Constitutional: No body ache, chills, excessive sweating, fatigue, fever(s), frequent falls, headache(s), snoring, weakness, sleep problems or change in appetite Eyes Eyes: No blurry vision, change in vision, eye pain or Light sensitivity ENT ENT: No abnormal hearing, ear or mastoid pain, tinnitus, nasal congestion, headache(s), neck pain or sore throat Resp Respiratory: No cough, shortness of breath, snoring or wheezing Cardio Cardiology: No chest pain at rest, chest pain with exertion, excessive sweating, shortness of breath, dyspnea on exertion, lighthead (more content not included)... Normal [facility] 12 Lead EKGon 03-25-2024 12 Lead EKG [facility] Cardiovascular Services [address] [place] [address] 12 Lead EKG 03/24/242005 MR#: [id number] Acct: [id number] Name: EMERITA RANGEL Rep #: [id number] : 1960 63 From: Ifeanyi Walker MD Attending Dr: Dr. Gage Cortes MD Status : ADM SUZANNE Ordering Dr: Andrade Almodvoar MD Date: 03/25/24 Location: [facility] Sex: F C Admitted: 03/24/24 Test Reason : CP ADMIT Blood Pressure : / mmHG Vent. Rate : 080 BPM Atrial Rate : 080 BPM P-R Int : 200 ms QRS Dur : 074 ms QT Int : 374 ms P-R-T Axes : 023 -31 006 degrees QTc Int : 431 ms Normal sinus rhythm Left axis deviation Minimal voltage criteria for LVH, may be normal variant ( R in aVL ) Inferior infarct , age undetermined Confirmed by AARON COOPER, IFEANYI ([id number]), photo editor ANISH RICE ([id number]) on 03/25/2024 1:02:53 PM Referred By: Venkat Ríos Confirmed By:IFEANYI WALKER MD 03/25/24 1303 Date Ifeanyi Walker MD CC: Dr. Byron Velasquez DO; Dr. Andrade Almodovar MD; Dr. Gage Cortes MD; Dr. Venkat Ríos DO Signed Normal [facility] Basic Metabolic Profile (BMP )on 03-25-2024 BUN/CRE 18.7 RATIO Normal - [facility] Comment on above: Performed By: #### L 500.2500, L100.0100, L500.4100, L501.9985 #### [facility] [address] [place], [address] CA,Total 9.1 mg/dL Normal 8.5-10.1 [facility] Comment on above: Performed By: #### L 500.2500, L100.0100, L500.4100, L501.9985 #### [facility] [address] [place], [address] Chloride [Moles/Vol] 106 mmol/L Normal 98-107 [facility] Comment on above: Performed By: #### L 500.2500, L100.0100, L500.4100, L501.9985 #### [facility] [address] [place], [address] CO2 [Moles/Vol] 27.0 mmol/L Normal 21.0-32.0 [facility] Comment on above: Performed By: #### L 500.2500, L100.0100, L500.4100, L501.9985 #### [facility] [address] [place], [address] Creatinine [Mass/Vol] 0.69 mg/dL Normal 0.55-1.02 [facility] Comment on above: Result Comment: The validity of the calculated GFR GFRAA in patients over 70 years has not been determined. Clinical correlation is essential. Performed By: #### L 500.2500, L100.0100, L500.4100, L501.9985 #### [facility] [address] [place], [address] ECRCL 96.04 ml/min Normal [facility] Comment on above: Performed By: #### L 500.2500, L100.0100, L500.4100, L501.9985 #### [facility] [address] [place], [address] EST GFR - AA 110 mL/min Normal >60 [facility] Comment on above: Result Comment: Afri can Yemeni GFR Calc Performed By: #### L 500.2500, L100.0100, L500.4100, L501.9985 #### [facility] [address] [place], [address] GAP 7 Normal 5-15 [facility] Comment on above: Performed By: #### L 500.2500, L100.0100, L500.4100, L501.9985 #### [facility] [address] [place], [address] GFR/1.73 sq M.predicted among non-blacks MDRD (S/P/Bld) [Vol rate/Area] 91 mL/min/{1.73_m2} Normal >60 [facility] Comment on above: Result Comment: Non- GFR Calc Performed By: #### L 500.2500, L100.0100, L500.4100, L501.9985 #### [facility] [address] [place], [address] Glucose [Mass/Vol] 176 mg/dL High 74-106 [facility] Comment on above: Result Comment: Fast ing Glucose result greater than or equal to 126 mg/dL suggests DIABETES MELLITUS per A.D.A. criteria. Performed By: #### L 500.2500, L100.0100, L500.4100, L501.9985 #### [facility] [address] [place], [address] Potassium [Moles/Vol] 4.0 mmol/L Normal 3.5-5.1 [facility] Comment on above: Performed By: #### L 500.2500, L100.0100, L500.4100, L501.9985 #### [facility] [address] [place], [address] Sodium [Moles/Vol] 140 mmol/L Normal 136-145 [facility] Comment on above: Performed By: #### L 500.2500, L100.0100, L500.4100, L501.9985 #### [facility] [address] [place], [address] Urea nitrogen [Mass/Vol] 13 mg/dL Normal 7-18 [facility] Comment on above: Performed By: #### L 500.2500, L100.0100, L500.4100, L501.9985 #### [facility] [address] [place], [address] Bedside Glucoseon 03-25-2024 FINGERSTICK GLU 194 mg/dL High 74-106 [facility] Comment on above: Result Comment: KATHY GEMENT OF PATIENT CARE PER NURSING PROTOCOL Performed By: #### L 501.080 #### [facility] [address] [place], [address] FINGERSTICK GLU 174 mg/dL High 74-106 [facility] Comment on above: Result Comment: KATHY GEMENT OF PATIENT CARE PER NURSING PROTOCOL Performed By: #### L 501.080 #### [facility] [address] [place], [address] FINGERSTICK GLU 152 mg/dL High 74-106 [facility] Comment on above: Result Comment: KATHY GEMENT OF PATIENT CARE PER NURSING PROTOCOL Performed By: #### L 501.080 ####[facility] [id number] [place], [address] CBC W/Diff, Automatedon 10- Absolute Lymph 3.37 X10 3/uL Normal 0.83-4.51 [facility] Comment on above: Performed By: #### L 500.2500, L100.0100, L500.4100, L501.9985 #### [facility] [address] [place], [address] Absolute Neut 3.8 X10 3/uL Normal 2.0-7.7 [facility] Comment on above: Performed By: #### L 500.2500, L100.0100, L500.4100, L501.9985 #### [facility] [address] [place], [address] Basophils/100 WBC (Bld) 0.5 % Normal 0-1 [facility] Comment on above: Performed By: #### L 500.2500, L100.0100, L500.4100, L501.9985 #### [facility] [address] [place], [address] Eosinophils/100 WBC (Bld) 3.3 % Normal 0-5 [facility] Comment on above: Performed By: #### L 500.2500, L100.0100, L500.4100, L501.9985 #### [facility] [address] [place], [address] Erythrocyte distribution width (RBC) [Ratio] 12.9 % Normal 11.6-14.6 [facility] Comment on above: Performed By: #### L 500.2500, L100.0100, L500.4100, L501.9985 #### [facility] [address] [place], [address] Hematocrit (Bld) [Volume fraction] 39.4 % Normal 37-47 [facility] Comment on above: Performed By: #### L 500.2500, L100.0100, L500.4100, L501.9985 #### [facility] [address] [place], [address] Hemoglobin (Bld) [Mass/Vol] 12.8 g/dL Normal 12.0-15.0 [facility] Comment on above: Performed By: #### L 500.2500, L100.0100, L500.4100, L501.9985 #### [facility] [address] [place], [address] IG% 0.400 Normal 0.0-0.9 [facility] Comment on above: Result Comment: IG% - Immature Granulocytes (promyelocytes, myelocytes and metamyelocytes) > 1% indicates that a LEFT SHIFT is Present. Performed By: #### L 500.2500, L100.0100, L500.4100, L501.9985 #### [facility] [address] [place], [address] Lymphocytes/100 WBC (Bld) 42.6 % High 19-41 [facility] Comment on above: Performed By: #### L 500.2500, L100.0100, L500.4100, L501.9985 #### [facility] [address] [place], [address] MCH (RBC) [Entitic mass] 28.4 pg Normal 27.0-32.0 [facility] Comment on above: Performed By: #### L 500.2500, L100.0100, L500.4100, L501.9985 #### [facility] [address] [place], [address] MCHC (RBC) [Mass/Vol] 32.5 g/dL Normal 32-36 [facility] Comment on above: Performed By: #### L 500.2500, L100.0100, L500.4100, L501.9985 #### [facility] [address] [place], [address] MCV (RBC) [Entitic vol] 87.4 fL Normal 81-99 [facility] Comment on above: Performed By: #### L 500.2500, L100.0100, L500.4100, L501.9985 #### [facility] [address] [place], [address] Monocytes/100 WBC (Bld) 5.8 % Normal 0-10 [facility] Comment on above: Performed By: #### L 500.2500, L100.0100, L500.4100, L501.9985 #### [facility] [address] [place], [address] Neutrophils/100 WBC (Bld) 47.4 % Normal 47-70 [facility] Comment on above: Performed By: #### L 500.2500, L100.0100, L500.4100, L501.9985 #### [facility] [address] [place], [address] Nucleated RBC (Bld) [#/Vol] 0 10*3/uL Normal 0-5 [facility] Comment on above: Performed By: #### L 500.2500, L100.0100, L500.4100, L501.9985 #### [facility] [address] [place], [address] Platelet mean volume (Bld) [Entitic vol] 10.1 fL Normal 6.2-12.0 [facility] Comment on above: Performed By: #### L 500.2500, L100.0100, L500.4100, L501.9985 #### [facility] [address] [place], [address] Platelets (Bld) [#/Vol] 331 10*3/uL Normal 150-450 [facility] Comment on above: Performed By: #### L 500.2500, L100.0100, L500.4100, L501.9985 #### [facility] [address] [place], [address] RBC (Bld) [#/Vol] 4.51 10*6/uL Normal 4.2-5.4 [facility] Comment on above: Performed By: #### L 500.2500, L100.0100, L500.4100, L501.9985 #### [facility] [address] [place], [address] RDW SD 40.9 fl Normal 35.1-43.9 [facility] Comment on above: Performed By: #### L 500.2500, L100.0100, L500.4100, L501.9985 #### [facility] [address] [place], [address] WBC (Bld) [#/Vol] 7.9 10*3/uL Normal 4.4-11.0 [facility] Comment on above: Performed By: #### L 500.2500, L100.0100, L500.4100, L501.9985 #### [facility] [address] [place], [address] Discharge Instructionon 03-16 Discharge Instruction [facility] Medical Records Department [address] [place] [address] Instructions for Home/Discharge Instructions 03/25/24 1322 MR#: [id number] Acct: [id number] Name: EMERITA RANGEL Rep #: [id number] : 1960 63 From: Gage Cortes MD PCP: Dr. Byron Velasquez, DO Status:ADM SUZANNE Discharge Instructions Diet Discharge Diet: Low fat / Low cholesterol, 1800 Calorie Control Diet and Carb Control Diet Activity Discharge Activity: Return to Normal Activity Dressing / Incision Call your doctor if you observe: Fever of 101 or Higher, Shortness of breath, Dizziness, Fainting spells, Swelling in the ankles, Chest pain and Increased palpitations (irregular heartbeat) Follow Up Care Test Results: Test results from this visit will be discussed in further detail at your follow-up appointment, if applicable. Discharge Plan Admission Admit Date/Time: 03/24/24 18:22 Attending Provider: Gage Cortes Primary Care Provider: Byron Velasquez Consulting Providers: Andrade Almodovar Discharge Orders/Prescription s Prescriptions: Continued magnesium oxide 500 mg capsule 500 mg PO DAILY Qty: 90 1RF potassium citrate 15 mEq tablet extended release 15 meq PO BID Qty: 180 3RF pravastatin 20 mg tablet 20 mg PO QHS Qty: 90 3RF (DME) blood-glucose meter Kit See Rx Instructions .Route Qty: 1 1RF Rx Instructions: As directed (DME) Blood Glucose Test Strip See Rx Instructions .Route Qty: 100 2RF Rx Instructions: As directed (DME) lancets Misc See Rx Instructions .Route Qty: 200 1RF Rx Instructions: As directed gabapentin 100 mg capsule 100 mg PO TID aspirin 81 MG tablet,chewable 81 mg PO DAILY@0800 cetirizine 10 mg capsule 10 mg PO QDAY Qty: 30 2RF levetiracetam [Keppra] 750 mg tablet 750 mg PO BID Qty: 180 1RF allopurinol 100 mg tablet 100 mg PO DAILY Qty: 90 3RF amlodipine 5 mg tablet 5 mg PO DAILY Qty: 90 3RF glipizide 2.5 mg tablet extended release 24hr 2.5 mg PO DAILY Qty: 90 1RF losartan 50 mg tablet 50 mg PO DAILY Qty: 90 3RF metformin 500 mg tablet 500 mg PO BREAKFAST Qty: 90 3RF metformin 1,000 mg tablet 1,000 mg PO QHS Qty: 90 3RF omeprazole 20 mg capsule,delayed release(DR/EC) 20 mg PO DAILY Qty: 90 3RF dulaglutide 4.5 mg/0.5 mL pen injector 4.5 mg SC QWEEK Qty: 2 2RF Rx Instructions: inject into abdomen, thigh, or upper arm (deltoid muscle); rotate sites metoprolol tartrate 50 mg tablet 50 mg PO BID Qty: 180 3RF Referrals / Follow Up: Byron Velasquez DO [Primary Care Provider] - Within 1 Week Disposition Disposition (needs filled in before D/C Order can be placed): Home, Self Care 03/25/24 1325 Gage Cortes MD CC: Dr. Byron Velasquez DO; Dr. Andrade Almodovar MD Signed Normal [facility] Hemoglobin A1con 03-25-2024 HbA1c (Bld) [Mass fraction] 7.4 % High 3.8-5.6 [facility] Comment on above: Result Comment: Norm al < 5.7 % Prediabetic 5.7 - 6.4 % Diabetic >or= 6.5 % Please note range changes. Performed By: #### L 500.2500, L100.0100, L500.4100, L501.9985 ####[facility] [id number] [place], [address] Lipid Profileon 03-25-2024 Cholesterol [Mass/Vol] 167 mg/dL Normal 200 [facility] Comment on above: Result Comment: <200 mg/dL Desirable 200-240 mg/dL Borderline >240 mg/dL High Risk Performed By: #### L 500.2500, L100.0100, L500.4100, L501.9985 #### [facility] [address] [place], [address] Cholesterol in HDL [Mass/Vol] 49 mg/dL Normal [facility] Comment on above: Result Comment: The drugs N-Acetylcysteine and Metamizole may falsely depress this assay. Reference Range HDL <40 mg/dL Low HDL Cholesterol HDL >or= 60 mg/dL High HDL Cholesterol Performed By: #### L 500.2500, L100.0100, L500.4100, L501.9985 #### [facility] [address] [place], [address] Cholesterol in LDL [Mass/Vol] 71 mg/dL Normal 0-130 [facility] Comment on above: Performed By: #### L 500.2500, L100.0100, L500.4100, L501.9985 #### [facility] [address] [place], [address] Cholesterol in VLDL [Mass/Vol] 47 mg/dL High 5-40 [facility] Comment on above: Performed By: #### L 500.2500, L100.0100, L500.4100, L501.9985 #### [facility] [address] [place], [address] Triglyceride [Mass/Vol] 234 mg/dL High [facility] Comment on above: Result Comment: The drugs N-Acetylcysteine and Metamizole may falsely depress this assay. Serum Triglycerides Reference Interval Normal <150 mg/dL Borderline high 150 - 199 mg/dL High 200 - 499 mg/dL Very High > or = 500 mg/dL Performed By: #### L 500.2500, L100.0100, L500.4100, L501.9985 #### [facility] [address] [place], [address] Stress Reporton 03-25-2024 Stress Report [facility] Services [address] [place] [address] MR#: [id number] Acct: [id number] Name: EMERITA RANGEL Rep #: [id number] : 1960 63 From: Ifeanyi Walker MD Primary Care: Dr. Byron Velasquez, Status: ADM SUZANNE Referring Dr: Venkat Ríos DO Sex: F C Stress Test Report Pharmacologic myocardial perfusion stress test. 63-year-old lady with a history of chest pain Resting EKG demonstrates sinus rhythm with a rate of 80 bpm. Resting blood pressure is 140/84 mmHg. 0.4 mg of regadenoson was infused per usual protocol followed by rapid intravenous saline flush injection. Continuous EKG monitoring was performed. The maximum heart rate was 115 bpm which was 73% of max impacted heart rate the maximum workload was 1 metabolic equivalent. At rest there were no ST or T wave changes noted to suggest ischemia and at peak infusion nonspecific ST changes were noted which did not meet the criteria for ischemia. No clinical angina is noted. The final blood pressure was 160/82 mmHg. Myocardial perfusion protocol. 14.8 mCi of technetium 99m sestamibi was injected at rest. 0.4 mg of regadenoson was infused per usual protocol. At peak infusion 44.2 mCi of technetium 99m sestamibi was injected stress images were obtained stress and rest images were reconstructed and compared in the short axis vertical long and horizontal long axis. Gated images were also obtained. Perfusion SPECT analysis: Review of the stress images demonstrate normal uptake of tracer noted in all areas of the myocardium. The resting images similar demonstrated normal uptake of tracer noted in all areas of the myocardium. No areas of reversibility are noted to suggest ischemia and no previous infarct is noted. Gated SPECT analysis: The gated ejection fraction is over 80. Conclusion: Normal pharmacologic myocardial perfusion stress test. Preserved ejection fraction. 03/25/24 1235 Date Ifeanyi Walker MD CC: Dr. Byron Velasquez DO; Dr. Andrade Almodovar MD; Dr. Gage Cortes MD; Dr. Venkat Ríos DO Date Dictated: 03/25/24 123 Date Transcribed: 03/25/241232 [employer]: [place] Signed Normal [facility] 12 Lead EKGon 03-24-2024 12 Lead EKG [facility] [address] [place] [address] 12 Lead EKG 03/25/24 0604 MR#: [id number] Acct: [id number] Name: EMERITA RANGEL Rep #: [id number] : 1960 63 From: Ifeanyi Walker MD Attending Dr: Dr. Gage Cortes MD Status : DIS SUZANNE Ordering Dr: Andrade Almodovar MD Date: 03/24/24 Location: [facility] Sex: F C Admitted: 03/24/24 Test Reason : AM EKG Blood Pressure : / mmHG Vent. Rate : 076 BPM Atrial Rate : 076 BPM P-R Int : 214 ms QRS Dur : 090 ms QT Int : 428 ms P-R-T Axes : 023 -29 007 degrees QTc Int : 481 ms Sinus rhythm with 1st degree A-V block Inferior infarct , age undetermined Anterior infarct , age undetermined Abnormal ECG When compared with ECG of 24-MAR-2024 20:06, MANUAL COMPARISON REQUIRED, DATA IS UNCONFIRMED Confirmed by AARON COOPER, IFEANYI ([id number]), photo editor ANISH RICE ([id number]) on 03/26/2024 5:57:36 AM Referred By: Venkat Ríos Confirmed By:IFEANYI WALKER MD 03/26/24 0557 Date Ifeanyi Walker MD CC: Dr. Byron Velasquez DO; Dr. Andrade Almodovar MD; Dr. Gage Cortes MD; Dr. Venkat Ríos DO Signed [facility] 12 Lead EKG [facility] [address] [place] [address] 12 Lead EKG 03/24/24 1632 MR#: [id number] Acct: [id number] Name: EMERITA RANGEL Rep #: [id number] : 1960 63 From: Ifeanyi Walker MD Attending Dr: Dr. Gage Cortes MD Status : DIS SUZANNE Ordering Dr: Venkat Ríos DO Date: 03/24/24 Location: [facility] Sex: F C Admitted: 03/24/24 Test Reason : CP Blood Pressure : / mmHG Vent. Rate : 089 BPM Atrial Rate : 089 BPM P-R Int : 228 ms QRS Dur : 076 ms QT Int : 370 ms P-R-T Axes : 034 -27 035 degrees QTc Int : 450 ms Sinus rhythm with 1st degree A-V block Inferior infarct (cited on or before 16-AUG-2017) Anterolateral infarct (cited on or before 16-AUG-2017) Abnormal ECG Confirmed by AARON COOPER, IFEANYI ([id number]), photo editor THU IZAGUIRRE ([id number]) on 03/26/2024 2:07:26 PM Referred By: Venkat Ríos Confirmed By:IFEANYI WALKER MD 03/26/24 1407 Date Ifeanyi Walker MD CC: Dr. Byron Velasquez DO; Dr. Gage Cortes MD; Dr. Venkat Ríos DO Signed [facility] Basic Metabolic Profile (BMP )on 03-24-2024 BUN/CRE 19.3 RATIO Normal 10-20 [facility] Comment on above: Order Comment: 1Y Performed By: #### L 501.5425, L300.8000, L100.0100, L500.2500 ####[facility] [address] [place], [address] CA,Total 9.0 mg/dL Normal 8.5-10.1 [facility] Comment on above: Order Comment: 1Y Performed By: #### L 501.5425, L300.8000, L100.0100, L500.2500 ####[facility] [address] [place], [address] Chloride [Moles/Vol] 106 mmol/L Normal 98-107 [facility] Comment on above: Order Comment: 1Y Performed By: #### L 501.5425, L300.8000, L100.0100, L500.2500 ####[facility] [address] [place], [address] CO2 [Moles/Vol] 27.0 mmol/L Normal 21.0-32.0 [facility] Comment on above: Order Comment: 1Y Performed By: #### L 501.5425, L300.8000, L100.0100, L500.2500 ####[facility] [address] [place], [address] Creatinine [Mass/Vol] 0.88 mg/dL Normal 0.55-1.02 [facility] Comment on above: Order Comment: 1Y Result Comment: The validity of the calculated GFR GFRAA in patients over 70 years has not been determined. Clinical correlation is essential. Performed By: #### L 501.5425, L300.8000, L100.0100, L500.2500 ####[facility] [address] [place], [address] ECRCL 75.51 ml/min Normal [facility] Comment on above: Order Comment: 1Y Performed By: #### L 501.5425, L300.8000, L100.0100, L500.2500 ####[facility] [address] [place], [address] EST GFR - AA 83 mL/min Normal >60 [facility] Comment on above: Order Comment: 1Y Result Comment: Afri can Yemeni GFR Calc Performed By: #### L 501.5425, L300.8000, L100.0100, L500.2500 ####[facility] [address] [place], [address] GAP 7 Normal 5-15 [facility] Comment on above: Order Comment: 1Y Performed By: #### L 501.5425, L300.8000, L100.0100, L500.2500 ####[facility] [address] [place], [address] GFR/1.73 sq M.predicted among non-blacks MDRD (S/P/Bld) [Vol rate/Area] 69 mL/min/{1.73_m2} Normal >60 [facility] Comment on above: Order Comment: 1Y Result Comment: Non- GFR Calc Performed By: #### L 501.5425, L300.8000, L100.0100, L500.2500 ####[facility] [address] [place], [address] Glucose [Mass/Vol] 226 mg/dL High 74-106 [facility] Comment on above: Order Comment: 1Y Result Comment: Gluc ose result greater than or equal to 200 mg/dL suggests DIABETES MELLITUS per A.D.A. criteria. Performed By: #### L 501.5425, L300.8000, L100.0100, L500.2500 ####[facility] [address] [place], [address] Potassium [Moles/Vol] 4.0 mmol/L Normal 3.5-5.1 [facility] Comment on above: Order Comment: 1Y Performed By: #### L 501.5425, L300.8000, L100.0100, L500.2500 ####[facility] [address] [place], [address] Sodium [Moles/Vol] 140 mmol/L Normal 136-145 [facility] Comment on above: Order Comment: 1Y Performed By: #### L 501.5425, L300.8000, L100.0100, L500.2500 ####[facility] [address] [place], [address] Urea nitrogen [Mass/Vol] 17 mg/dL Normal 7-18 [facility] Comment on above: Order Comment: 1Y Performed By: #### L 501.5425, L300.8000, L100.0100, L500.2500 ####[facility] [address] [place], [address] CBC W/Diff, Automatedon 10-0 9-2023 Absolute Lymph 3.32 X10 3/uL Normal 0.83-4.51 [facility] Comment on above: Performed By: #### L 501.5425, L300.8000, L100.0100, L500.2500 ####[facility] [address] [place], [address] Absolute Neut 4.3 X10 3/uL Normal 2.0-7.7 [facility] Comment on above: Performed By: #### L 501.5425, L300.8000, L100.0100, L500.2500 ####[facility] [address] [place], [address] Basophils/100 WBC (Bld) 0.5 % Normal 0-1 [facility] Comment on above: Performed By: #### L 501.5425, L300.8000, L100.0100, L500.2500 ####[facility] [address] [place], [address] Eosinophils/100 WBC (Bld) 2.7 % Normal 0-5 [facility] Comment on above: Performed By: #### L 501.5425, L300.8000, L100.0100, L500.2500 ####[facility] [address] [place], [address] Erythrocyte distribution width (RBC) [Ratio] 12.9 % Normal 11.6-14.6 [facility] Comment on above: Performed By: #### L 501.5425, L300.8000, L100.0100, L500.2500 ####[facility] [address] [place], [address] Hematocrit (Bld) [Volume fraction] 37.6 % Normal 37-47 [facility] Comment on above: Performed By: #### L 501.5425, L300.8000, L100.0100, L500.2500 ####[facility] [address] [place], [address] Hemoglobin (Bld) [Mass/Vol] 12.2 g/dL Normal 12.0-15.0 [facility] Comment on above: Performed By: #### L 501.5425, L300.8000, L100.0100, L500.2500 ####[facility] [address] [place], [address] IG% 0.500 Normal 0.0-0.9 [facility] Comment on above: Result Comment: IG% - Immature Granulocytes (promyelocytes, myelocytes and metamyelocytes) > 1% indicates that a LEFT SHIFT is Present. Performed By: #### L 501.5425, L300.8000, L100.0100, L500.2500 ####[facility] [address] [place], [address] Lymphocytes/100 WBC (Bld) 39.4 % Normal 19-41 [facility] Comment on above: Performed By: #### L 501.5425, L300.8000, L100.0100, L500.2500 ####[facility] [address] [place], [address] MCH (RBC) [Entitic mass] 28.2 pg Normal 27.0-32.0 [facility] Comment on above: Performed By: #### L 501.5425, L300.8000, L100.0100, L500.2500 ####[facility] [address] [place], [address] MCHC (RBC) [Mass/Vol] 32.4 g/dL Normal 32-36 [facility] Comment on above: Performed By: #### L 501.5425, L300.8000, L100.0100, L500.2500 ####[facility] [address] [place], [address] MCV (RBC) [Entitic vol] 86.8 fL Normal 81-99 [facility] Comment on above: Performed By: #### L 501.5425, L300.8000, L100.0100, L500.2500 ####[facility] [address] [place], [address] Monocytes/100 WBC (Bld) 5.6 % Normal 0-10 [facility] Comment on above: Performed By: #### L 501.5425, L300.8000, L100.0100, L500.2500 ####[facility] [address] [place], [address] Neutrophils/100 WBC (Bld) 51.3 % Normal 47-70 [facility] Comment on above: Performed By: #### L 501.5425, L300.8000, L100.0100, L500.2500 ####[facility] [address] [place], [address] Nucleated RBC (Bld) [#/Vol] 0 10*3/uL Normal 0-5 [facility] Comment on above: Performed By: #### L 501.5425, L300.8000, L100.0100, L500.2500 ####[facility] [address] [place], [address] Platelet mean volume (Bld) [Entitic vol] 10.0 fL Normal 6.2-12.0 [facility] Comment on above: Performed By: #### L 501.5425, L300.8000, L100.0100, L500.2500 ####[facility] [address] [place], [address] Platelets (Bld) [#/Vol] 335 10*3/uL Normal 150-450 [facility] Comment on above: Performed By: #### L 501.5425, L300.8000, L100.0100, L500.2500 ####[facility] [address] [place], [address] RBC (Bld) [#/Vol] 4.33 10*6/uL Normal 4.2-5.4 [facility] Comment on above: Performed By: #### L 501.5425, L300.8000, L100.0100, L500.2500 ####[facility] [address] [place], [address] RDW SD 40.9 fl Normal 35.1-43.9 [facility] Comment on above: Performed By: #### L 501.5425, L300.8000, L100.0100, L500.2500 ####[facility] [address] [place], [address] WBC (Bld) [#/Vol] 8.4 10*3/uL Normal 4.4-11.0 [facility] Comment on above: Performed By: #### L 501.5425, L300.8000, L100.0100, L500.2500 ####[facility] [address] [place], [address] Chest 1 View (Portable)on Chest 1 View (Portable) [facility] Imaging Services [address] [place] [address] Chest 1 View (Portable) MR#: [id number] Acct: [id number] Name: EMERITA RANGEL Rep #: [id number] : 1960 F 63 From: Johnny Brito MD PCP: Dr. Byron Velasquez DO Status: REG ER Study: Chest 1 View (Portable) Date of Exam: 03/24/24 Exam# [id number] Ordering Dr: Venkat Ríos DO -[id number] STUDY: X-RAY CHEST REASON FOR EXAM: Female, 63 years old. chest pain TECHNIQUE: AP portable COMPARISON: None. FINDINGS: The lungs are clear and expanded. There is no demonstrated pleural abnormality. Heart is enlarged. Normal mediastinum and kemar. Normal visualized pulmonary arteries. Normal visualized aortic arch and descending thoracic aorta. Dorsal spine demonstrates degenerative changes. Normal visualized ribs, clavicles, and shoulders. There is no demonstrated abnormality of the visualized soft tissue structures of the upper abdomen. RAD/Chest 1 View (Portable) IMPRESSION: Cardiomegaly. No acute cardiopulmonary pathology Electronically Signed: Johnny Brito MD at 17:14 EDT , CC: Dr. Byron Velasquez DO; Dr. Venkat Ríos DO [employer]: Signed Normal [facility] D-Dimer Quantitative (DVT/PE )on 03-24-2024 D-DIMER QUANT 0.41 FEU/ug/m Normal 0.27-0.49 [facility] Comment on above: Result Comment: NORM AL D-Dimer level (<0.50) indicates no DVT or PE. Performed By: #### L 501.7738, L300.8000, L100.0100, L500.2500 ####[facility] [address] [place], [address] Emergency Department Summary on 03-24-2024 Emergency Department Summary [facility] Medical Records Department [address] [place] [address] Emergency Department Summary 03/24/24 MR#: [id number] Acct: [id number] Name: EMERITA RANGEL Rep #: [id number] : 1960 63 From: Venkat Ríos DO PCP: Dr. Byron Velasquez, DO Status:ADM SUZANNE Location: [address] History of Present Illness Chief Complaint: Chest Pain Detail of Chief Complaint: Chest pain Informant: patient Narrative Narrative: Patient presents to the emergency department complaint of chest pain that started approximately 3:57 PM. Patient states that she had dropped off her grandson she was driving when she had sudden onset of sharp stabbing and burning pain in the center of her chest. That then kind of dissipated now just has a dull discomfort in her center of her chest. Patient also states that she has some discomfort into the left side of her neck where she had her carotid endarterectomy which is always numb to the touch for the last 8 years since her surgery. Patient also feels some tightness in her throat. Patient denies nausea or vomiting. She denies shortness of breath. She denies recent illness. No heart history. Patient has had prior stress test her last one was 4 to 5 years ago. Patient has never had a heart catheterization. [facility] Medical History Acute frontal sinusitis, unspecified Hives Depression Migraines Kidney stones GERD (gastroesophageal reflux disease) IBS (irritable bowel syndrome) Type 2 diabetes mellitus Seasonal allergies History of stroke Seizures Hypertension Hyperlipemia Home Medications ???Medication ???Instructions ???Recorded ???Last Taken ???Type aspirin 81 mg chewable tablet 81 mg PO DAILY@0800 10/10/16 03/24/24 History cetirizine 10 mg capsule 10 mg PO QDAY #30 caps 03/12/18 03/24/24 Rx levetiracetam 750 mg tablet 750 mg PO BID #180 tabs 02/12/19 Unknown Rx (Keppra) magnesium oxide 500 mg capsule 500 mg PO DAILY #90 caps 10/31/20 03/24/24 Rx blood sugar diagnostic (Blood #100 ea 06/25/23 Unknown Rx Glucose Test strips) blood-glucose meter #1 ea 06/25/23 Unknown Rx lancets #200 ea 06/25/23 Unknown Rx potassium citrate 15 mEq (1,620 15 meq PO BID #180 tabs 06/25/23 Unknown Rx mg) tablet,extended release pravastatin 20 mg tablet 20 mg PO QHS #90 tabs 06/25/23 Unknown Rx gabapentin 100 mg capsule 100 mg PO TID 01/06/24 Unknown History allopurinol 100 mg tablet 100 mg PO DAILY #90 tabs 02/24/24 Unknown Rx amlodipine 5 mg tablet 5 mg PO DAILY #90 tabs 02/24/24 Unknown Rx glipizide 2.5 mg tablet, extended 2.5 mg PO DAILY #90 tabs 02/24/24 Unknown Rx release 24 hr losartan 50 mg tablet 50 mg PO DAILY #90 tabs 02/24/24 Unknown Rx metformin 1,000 mg tablet 1,000 mg PO QHS #90 tabs 02/24/24 Unknown Rx metformin 500 mg tablet 500 mg PO BREAKFAST #90 tabs 02/24/24 Unknown Rx omeprazole 20 mg capsule,delayed 20 mg PO DAILY #90 caps 02/24/24 Unknown Rx release dulaglutide 4.5 mg/0.5 mL 4.5 mg (0.5 mL) subcut QWEEK #2 mL 03/23/24 Unknown Rx subcutaneous pen injector metoprolol tartrate 50 mg tablet 50 mg PO BID #180 TABLETS 03/23/24 Unknown Rx Allergy/AdvReac Type Severity Reaction Status Date / Time No Known Allergies Allergy Verified 03/24/24 16:25 Family History Father Hypertension Heart disease Myocardial infarction Hyperlipemia Brother Epilepsy Mother Thyroid disorder Sister Lupus Surgical History History of partial hysterectomy History of carpal tunnel release History of right knee surgery History of shoulder surgery History of appendectomy Social History Smoking Status: Never smoker alcohol intake: never substance use type: does not use what type of physical activity do you participate in: none ROS ROS ED Review of Systems ROS Unobtainable: other Constitutional Constitutional ED: Reports lethargy; Denies chills, fever(s), sweats or weight loss Eyes Eyes: Denies blurry vision, change in vision or diplopia ENT ENT ED: Denies rhinorrhea or sore throat Cardiovascular Cardiovascular: Reports chest pain; Denies orthopnea or racing heartbeat Respiratory/Chest Respiratory/Chest: Denies cough, dyspnea, dyspnea on exertion, orthopnea or sputum Gastrointestinal Gastrointestinal: Denies abdominal pain, diarrhea, nausea or vomiting Genitourinary Genitourinary ED: Denies dysuria, hematuria or urinary frequency Musculoskeletal Musculoskeletal: Denies arthralgias, back pain, myalgias or neck pain Integumentary Denies abscess, Abrasions or rash Neurologic Neurologic: Denies headache(s) or weaknes (more content not included)... Normal [facility]&P Exam - Hospitalist [facility] Medical Records Department [address] [place] [address] H P Exam - Hospitalist 03/24/24 1809 MR#: [id number] Acct: [id number] Name: EMERITA RANGEL Rep #: [id number] : 1960 63 From: Andrade Almodovar MD PCP: Dr. Byron Velasquez, DO Status:ADM SUZANNE Location: [place] [address] HPI - General General Date of Admission: 03/24/24 Date of Service: 03/24/24 Chief Complaint: Chest pain HPI Narrative EMERITA RANGEL, is a 63 F with a significant history of hypertension, diabetes mellitus, 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 She had 2 episodes of chest pain and it all took her breath away. She describes initial chest pain as an electric shock. Later on the chest pain improved to an aching pain. She also had some tightness in her throat. Reportedly she does not feel the left side of her neck where she had a carotid endarterectomy but with her chest pain she felt pain at the left side of her neck. She denies any nausea, or vomiting. She denies diaphoresis. At the emergency department after a second nitroglycerin sublingual her chest pain went away. [facility] Medical History Acute frontal sinusitis, unspecified Hives Depression Migraines Kidney stones GERD (gastroesophageal reflux disease) IBS (irritable bowel syndrome) Type 2 diabetes mellitus Seasonal allergies History of stroke Seizures Hypertension Hyperlipemia Home Medications ???Medication ???Instructions ???Recorded ???Last Taken ???Type aspirin 81 mg chewable tablet 81 mg PO DAILY@0800 10/10/16 03/24/24 History cetirizine 10 mg capsule 10 mg PO QDAY #30 caps 03/12/18 03/24/24 Rx levetiracetam 750 mg tablet 750 mg PO BID #180 tabs 02/12/19 Unknown Rx (Keppra) magnesium oxide 500 mg capsule 500 mg PO DAILY #90 caps 10/31/20 03/24/24 Rx blood sugar diagnostic (Blood #100 ea 06/25/23 Unknown Rx Glucose Test strips) blood-glucose meter #1 ea 06/25/23 Unknown Rx lancets #200 ea 06/25/23 Unknown Rx potassium citrate 15 mEq (1,620 15 meq PO BID #180 tabs 06/25/23 Unknown Rx mg) tablet,extended release pravastatin 20 mg tablet 20 mg PO QHS #90 tabs 06/25/23 Unknown Rx gabapentin 100 mg capsule 100 mg PO TID 01/06/24 Unknown History allopurinol 100 mg tablet 100 mg PO DAILY #90 tabs 02/24/24 Unknown Rx amlodipine 5 mg tablet 5 mg PO DAILY #90 tabs 02/24/24 Unknown Rx glipizide 2.5 mg tablet, extended 2.5 mg PO DAILY #90 tabs 02/24/24 Unknown Rx release 24 hr losartan 50 mg tablet 50 mg PO DAILY #90 tabs 02/24/24 Unknown Rx metformin 1,000 mg tablet 1,000 mg PO QHS #90 tabs 02/24/24 Unknown Rx metformin 500 mg tablet 500 mg PO BREAKFAST #90 tabs 02/24/24 Unknown Rx omeprazole 20 mg capsule,delayed 20 mg PO DAILY #90 caps 02/24/24 Unknown Rx release dulaglutide 4.5 mg/0.5 mL 4.5 mg (0.5 mL) subcut QWEEK #2 mL 03/23/24 Unknown Rx subcutaneous pen injector metoprolol tartrate 50 mg tablet 50 mg PO BID #180 TABLETS 03/23/24 Unknown Rx Allergy/AdvReac Type Severity Reaction Status Date / Time No Known Allergies Allergy Verified 03/24/24 16:25 Family History Father Hypertension Heart disease Myocardial infarction Hyperlipemia Brother Epilepsy Mother Thyroid disorder Sister Lupus Surgical History History of partial hysterectomy History of carpal tunnel release History of right knee surgery History of shoulder surgery History of appendectomy Social History Smoking Status: Never smoker alcohol intake: never substance use type: does not use what type of physical activity do you participate in: none ROS ROS Narrative Pertinent positives and pertinent negatives as noted in HPI. All other systems were reviewed and are negative Vital Signs Vital Signs Vital Signs: 03/24/24 16:25 03/24/24 16:55 03/24/24 17:09 Temperature 96.2 F L Temperature Source Temporal Pulse Rate 90 82 Respiratory Rate 18 Blood Pressure 140/101 H 146/79 H Blood Pressure Mean 114 Pulse Ox 95 94 Oxygen Delivery Method Room Air Room Air 03/24/24 17:14 03/24/24 17:24 03/24/24 18:00 Temperature Temperature Source Pulse Rate 88 85 86 Respiratory Rate 14 12 Blood Pressure 146/79 H 151/91 H 156/82 H Blood Pressure Mean 111 106 Pulse Ox 93 93 Oxygen Delivery Method Room Air Room Air Weight Weight: 100.698 kg Body Mass Index (BMI) 38.0 Physical Exam Narrativ (more content not included)... Normal [facility] L501.4020on 03-24-2024 TROPONIN-I HS < 3 Low 3.0-54.0 [facility] Comment on above: Order Comment: 'TROP ' Serial specimen #1, #2 or #3: 3 Result Comment: Plea se Note: New Test Units and Gender Specific Reference Ranges. For more information see Policy Stat Procedure [place] High Sensitivity Troponin (TNIH) and attachments. Performed By: #### L 501.4020 ####[facility] [address] [place], [address] TROPONIN-I HS 3 pg/mL Normal 3.0-54.0 [facility] Comment on above: Result Comment: Plea se Note: New Test Units and Gender Specific Reference Ranges. For more information see Policy Stat Procedure [place] High Sensitivity Troponin (TNIH) and attachments. Performed By: #### L 501.4020 ####[facility] [address] [place], [address] L501.5425on 03-24-2024 TROPONIN-I HS 4 pg/mL Normal 3.0-54.0 [facility] Comment on above: Order Comment: 1Y Result Comment: Plea se Note: New Test Units and Gender Specific Reference Ranges. For more information see Policy Stat Procedure [place] High Sensitivity Troponin (TNIH) and attachments. Performed By: #### L 501.5425, L300.8000, L100.0100, L500.2500 ####[facility] [address] [place], [address] Internal Medicine Office Vis iton 01-06-2024 Internal Medicine Office Visit [facility] [address] [place] [address] [place] [address] OFFICE VISIT Date of Service: 01/06/24 MR#: [id number] Acct: [id number] Name: EMERITA RANGEL Rep #: [id number] : 1960 Provider: Dr. Byron mota, DO Age/Sex: 63/F Location: [facility] Status: Signed Intake Vital Signs 09/30/23 13:39 01/06/24 13:31 Height 5 ft 4 in 5 ft 4 in Weight: 219 lb 215 lb BMI 37.5 36.8 BP 122/72 H 118/66 Blood Pressure Location Lt brachial Lt brachial Position Sitting Sitting Respiration 14 14 Pulse 84 80 Pulse Source Monitor Monitor Temp 97.1 F L 97.1 F L Temp Source Temporal Temporal Pulse Oximetry (%) 96 95 Oxygen Delivery Method room air room air Intake Visit Reasons: 3 M FU Chief Complaint: 3 M FU Online Marketing [employer]ist Required: No Is patient in pain?: No Allergies No Known Allergies Allergy (Verified 01/06/24 13:21) Medications ???Medication ???Instructions ???Recorded ???Confirmed ???Type aspirin 81 mg chewable tablet 81 mg PO DAILY@0800 10/10/16 01/06/24 History cetirizine 10 mg capsule 10 mg PO QDAY #30 caps 03/12/18 01/06/24 Rx levetiracetam 750 mg tablet 750 mg PO BID #180 tabs 02/12/19 01/06/24 Rx (Keppra) magnesium oxide 500 mg capsule 500 mg PO DAILY #90 caps 10/31/20 01/06/24 Rx diclofenac sodium 1 % topical gel 4 g topical ONCE #100 grams 03/05/22 01/06/24 Rx (Voltaren Arthritis Pain) allopurinol 100 mg tablet 100 mg PO DAILY #90 tabs 12/25/22 01/06/24 Rx amlodipine 5 mg tablet 5 mg PO DAILY #90 tabs 12/25/22 01/06/24 Rx losartan 50 mg tablet 50 mg PO DAILY #90 tabs 12/25/22 01/06/24 Rx metformin 1,000 mg tablet 1,000 mg PO QHS #90 tabs 12/25/22 01/06/24 Rx metformin 500 mg tablet 500 mg PO BREAKFAST #90 tabs 12/25/22 01/06/24 Rx metoprolol tartrate 50 mg tablet 50 mg PO BID #180 tabs 12/25/22 01/06/24 Rx omeprazole 20 mg capsule,delayed 20 mg PO DAILY #90 caps 12/25/22 01/06/24 Rx release alcohol swabs (Alcohol Pads) 1 pad topical TID #200 ea 06/25/23 01/06/24 Rx blood sugar diagnostic (Blood #100 ea 06/25/23 01/06/24 Rx Glucose Test strips) blood-glucose meter #1 ea 06/25/23 01/06/24 Rx glipizide 2.5 mg tablet, extended 2.5 mg PO DAILY #90 tabs 06/25/23 01/06/24 Rx release 24 hr lancets #200 ea 06/25/23 01/06/24 Rx potassium citrate 15 mEq (1,620 15 meq PO BID #180 tabs 06/25/23 01/06/24 Rx mg) tablet,extended release pravastatin 20 mg tablet 20 mg PO QHS #90 tabs 06/25/23 01/06/24 Rx dulaglutide 4.5 mg/0.5 mL 4.5 mg (0.5 mL) subcut QWEEK #2 mL 12/16/23 01/06/24 Rx subcutaneous pen injector gabapentin 100 mg capsule 100 mg PO TID 01/06/24 01/06/24 History PFSH Medical History Acute frontal sinusitis, unspecified Hives Depression Migraines Kidney stones GERD (gastroesophageal reflux disease) IBS (irritable bowel syndrome) Type 2 diabetes mellitus Seasonal allergies History of stroke Seizures Hypertension Hyperlipemia Surgical History History of partial hysterectomy History of carpal tunnel release History of right knee surgery History of shoulder surgery History of appendectomy Family History Father Hypertension Heart disease Myocardial infarction Hyperlipemia Brother Epilepsy Mother Thyroid disorder Sister Lupus Social History Smoking Status: Never smoker alcohol intake: never substance use type: does not use what type of physical activity do you participate in: none HPI HPI Chief Complaint: 3 M FU Details: EMERITA RANGEL, is a 63 F who presents to the office today for a follow-up on her diabetes. Her sugars have been much improved since she is finally established a fairly regular source for her Trulicity. For the first couple of months she was only able to get an injection about every other week. She voices no new complaints. ROS Const Constitutional: No body ache, chills, excessive sweating, fatigue, fever(s), frequent falls, headache(s), snoring, weakness, sleep problems or change in appetite Eyes Eyes: No blurry vision, change in vision, eye pain or Light sensitivity ENT ENT: No abnormal hearing, ear or mastoid pain, tinnitus, nasal congestion, headache(s), neck pain or sore throat Resp Respiratory: No cough, shortness of breath, snoring or wheezing Cardio Cardiology: No chest pain at rest, chest pain with exertion, excessive sweating, shortness of breath, dyspnea on exertion, lightheadedness, orthopnea or palpitations Gastro GI: No abdominal pain, change in bowel habits, constipation, cramping, diarrhea, nausea/dyspepsia or vomiting (more content not included)... Normal [facility] No Panel InformationOrdered By: Byron Velasquez on 03-27-2023 Urine Microalbumin/Creatinin e Ratio 23.2 mg/g CRE <30 [facility] Thin prep Papanicolaou smear with manual screeningOrdered By: Byron Velasquez on 03-27-2023 Thin prep Papanicolaou smear with manual screening 25.8 mg/L NO RANGE EST. [facility] Urine creatinine measurement (mass/volume)Ordered By: Byron Velasquez on 03-27-2023 Creatinine (U) [Mass/Vol] 111.00 mg/dL NO RANGE EST. [facility] Absolute lymphocyte countOrd ered By: Byron Velasquez on 03-26-2023 Lymphocytes Auto (Unsp spec) [#/Vol] 3.38 10*3/uL 0.83-4.51 [facility] Basophil percentageOrdered B y: Byron Velasquez on 03-26-2023 Basophils/100 WBC (Bld) 0.7 % 0-1 [facility] Bilirubin [Mass/Vol] 0.40 mg/dL 0.20-1.00 [facility] Comment on above: For patients on eltr ombopag therapy, use of Dimension [place] TBIL is not recommended. Chloride [Moles/Vol] 103 mmol/L 98-107 [facility] Cholesterol [Mass/Vol] 138 mg/dL <200 [facility] Comment on above: <200 mg/dL Desirable 200-240 mg/dL Borderline >240 mg/dL High Risk Eosinophils/100 WBC (Bld) 7.3 % 0-5 [facility] Glucose [Mass/Vol] 183 mg/dL 74-106 [facility] Comment on above: Fasting Glucose resu lt greater than or equal to 126 mg/dL suggests DIABETES MELLITUS per A.D.A. criteria. Neutrophils (Bld) [#/Vol] 3.8 10*3/uL 2.0-7.7 [facility] Neutrophils/100 WBC (Bld) 44.9 % 47-70 [facility] Potassium [Moles/Vol] 4.1 mmol/L 3.5-5.1 [facility] Protein [Mass/Vol] 7.2 g/dL 6.4-8.2 [facility] Sodium [Moles/Vol] 137 mmol/L 136-145 [facility] Triglyceride [Mass/Vol] 237 mg/dL <199 [facility] Comment on above: The drugs N-Acetylcy steine and Metamizole may falsely depress this assay.Serum Triglycerides Reference Interval Normal <150 mg/dL Borderline high 150 - 199 mg/dL High 200 - 499 mg/dL Very High > or = 500 mg/dL WBC (Bld) [#/Vol] 8.4 10*3/uL 4.4-11.0 [facility] Blood erythrocytes count (nu mber/volume)Ordered By: Byron Velasquez on 03-26-2023 RBC (Bld) [#/Vol] 4.59 10*6/uL 4.2-5.4 [facility] Blood hemoglobin measurement (mass/volume)Ordered By: Byron Velasquez on 03-26-2023 Hemoglobin (Bld) [Mass/Vol] 12.7 g/dL 12.0-15.0 [facility] Blood lymphocytes/100 leukoc ytesOrdered By: Byron Velasquez on 03-26-2023 Lymphocytes/100 WBC (Bld) 40.4 % 19-41 [facility] Blood monocytes/100 leukocyt esOrdered By: Byron Velasquez on 03-26-2023 Monocytes/100 WBC (Bld) 6.3 % 0-10 [facility] Blood platelet adequacy dete ction by light microscopyOrdered By: Byron Velasquez on 03-26-2023 Platelets LM Ql (Bld) ADEQUATE ADEQ [facility] Blood platelet mean volumeOr dered By: Byron Velasquez on 03-26-2023 Platelet mean volume (Bld) [Entitic vol] 10.3 fL 6.2-12.0 [facility] Determination of erythrocyte mean corpuscular volume (MCV)Ordered By: Byron Velasquez on 03-26-2023 MCV (RBC) [Entitic vol] 88.5 fL 81-99 [facility] Hematocrit Auto (Bld) [Volum e fraction]Ordered By: Byron Velasquez on 03-26-2023 Hematocrit (Bld) [Volume fraction] 40.6 % 37-47 [facility] Laboratory - Chemistry and C hemistry - challengeOrdered By: Byronross Velasquez on 03-26-2023 ALP [Catalytic activity/Vol] 110 U/L 45-117 [facility] ALT [Catalytic activity/Vol] 43 U/L 13-56 [facility] CO2 [Moles/Vol] 27.0 mmol/L 21.0-32.0 [facility] Globulin (S) [Mass/Vol] 3.8 g/dL 2.2-4.2 [facility] Urea nitrogen/Creatinine [Mass ratio] 16.4 mg/mg 10-20 [facility] Laboratory - Hematology and Cell countsOrdered By: Byron Velasquez on 03-26-2023 Anisocytosis Ql (Bld) RARE [facility] Erythrocyte distribution width (RBC) [Entitic vol] 42.8 fL 35.1-43.9 [facility] Erythrocyte distribution width (RBC) [Ratio] 13.2 % 11.6-14.6 [facility] Immature granulocytes/100 WBC (Bld) 0.400 % 0.0-0.9 [facility] Comment on above: IG% - Immature Granu locytes (promyelocytes, myelocytes and metamyelocytes) > 1% indicates that a LEFT SHIFT is Present. MCH (RBC) [Entitic mass] 27.7 pg 27.0-32.0 [facility] Nucleated RBC/100 WBC (Bld) [Ratio] 0 % 0-5 [facility] Laboratory - Hematology and Cell countson 03-26-2023 HbA1c (Bld) [Mass fraction] 7.2 % 4.2-6.3 [facility] Auto (RBC) [Mass/Vol]Or dered By: Byron Velasquez on 03-26-2023 MCHC (RBC) [Mass/Vol] 31.3 g/dL 32-36 [facility] No Panel InformationOrdered By: Byron Velasquez on 03-26-2023 Atypical Lymphocytes 1+ % [facility] Estimated GFR (MDRD) Amer 80 mL/min >60 [facility] Comment on above: GFR Calc Estimated GFR (MDRD) Non-Af Amer 66 mL/min >60 [facility] Comment on above: Non- GFR Calc Thyroid Stimulating Hormone (TSH) 1.92 uIU/mL 0.358-3.74 [facility] Platelets bldOrdered By: Carmelo Velasquez on 03-26-2023 Platelets (Bld) [#/Vol] 373 10*3/uL 150-450 [facility] RBC morphologyOrdered By: Do dev Velasquez on 03-26-2023 RBC morphology finding Nom (Bld) N CHROM NORMAL NORM C&C [facility] Serum or plasma albumin joao urement (mass/volume)Ordered By: Byron Velasquez on 03-26-2023 Albumin [Mass/Vol] 3.4 g/dL 3.2-5.0 [facility] Serum or plasma albumin/glob ulin mass ratioOrdered By: Byron Velasquez on 03-26-2023 Albumin/Globulin [Mass ratio] 0.9 {ratio} 0.9-2.4 [facility] Serum or plasma calcium joao urement (mass/volume)Ordered By: Byron Velasquez on 03-26-2023 Calcium [Mass/Vol] 8.5 mg/dL 8.5-10.1 [facility] Serum or plasma cholesterol in HDL measurement (mass/volume)Ordered By: Byron Velasquez on 03-26-2023 Cholesterol in HDL [Mass/Vol] 41 mg/dL >40 [facility] Comment on above: The drugs N-Acetylcy steine and Metamizole may falsely depress this assay. Reference Range HDL <40 mg/dL Low HDL Cholesterol HDL >or= 60 mg/dL High HDL Cholesterol Serum or plasma cholesterol in VLDL measurement (mass/volume)Ordered By: Byron Velasquez on 03-26-2023 Cholesterol in VLDL [Mass/Vol] 47 mg/dL 5-40 [facility] Serum or plasma creatinine m easurement (mass/volume)Ordered By: Byron Velasquez on 03-26-2023 Creatinine [Mass/Vol] 0.91 mg/dL 0.55-1.02 [facility] Comment on above: The validity of the calculated GFR & GFRAA in patients over 70 years has not been determined. Clinical correlation is essential. Serum or plasma low density lipoprotein (LDL) cholesterol measurement (mass/volume)Ordered By: Byron Velasquez on 03-26-2023 Cholesterol in LDL [Mass/Vol] 50 mg/dL 0-130 [facility] Serum or plasma urea nitroge n measurement (mass/volume)Ordered By: Byron Velasquez on 03-26-2023 Urea nitrogen [Mass/Vol] 15 mg/dL 7-18 [facility] Thin prep Papanicolaou smear with manual screeningOrdered By: Byron Velasquez on 03-26-2023 Thin prep Papanicolaou smear with manual screening 23 U/L 15-37 [facility] Thin prep Papanicolaou smear with manual screening 7 5-15 [facility] Laboratory - Hematology and Cell countson 12-25-2022 HbA1c (Bld) [Mass fraction] 8.5 % 4.2-6.3 [facility] Basophil percentageon 2021 Bilirubin [Mass/Vol] 0.30 mg/dL 0.20-1.00 [facility] Work Phone: Comment on above: For patients on eltr ombopag therapy, use of Dimension [place] TBIL is not recommended. Chloride [Moles/Vol] 103 mmol/L 98-107 [facility] Work Phone: Cholesterol [Mass/Vol] 180 mg/dL <200 [facility] Work Phone: Comment on above: <200 mg/dL Desirable 200-240 mg/dL Borderline >240 mg/dL High Risk Glucose [Mass/Vol] 154 mg/dL 74-106 [facility] Work Phone: Comment on above: Fasting Glucose resu lt greater than or equal to 126 mg/dL suggests DIABETES MELLITUS per A.D.A. criteria. Potassium [Moles/Vol] 4.3 mmol/L 3.5-5.1 [facility] Work Phone: Protein [Mass/Vol] 7.5 g/dL 6.4-8.2 [facility] Work Phone: Sodium [Moles/Vol] 141 mmol/L 136-145 [facility] Work Phone: Triglyceride [Mass/Vol] 325 mg/dL <199 [facility] Work Phone: Comment on above: The drugs N-Acetylcy steine and Metamizole may falsely depress this assay.Serum Triglycerides Reference Interval Normal <150 mg/dL Borderline high 150 - 199 mg/dL High 200 - 499 mg/dL Very High > or = 500 mg/dL Laboratory - Chemistry and C hemistry - challengeon 03-05-2022 ALP [Catalytic activity/Vol] 119 U/L 45-117 [facility] Work Phone: ALT [Catalytic activity/Vol] 36 U/L 13-56 [facility] Work Phone: CO2 [Moles/Vol] 28.0 mmol/L 21.0-32.0 [facility] Work Phone: Globulin (S) [Mass/Vol] 3.9 g/dL 2.2-4.2 [facility] Work Phone: Urea nitrogen/Creatinine [Mass ratio] 25.0 mg/mg 10-20 [facility] Work Phone: Laboratory - Hematology and Cell countson 03-05-2022 HbA1c (Bld) [Mass fraction] 6.7 % 4.2-6.3 [facility] Work Phone: No Panel Informationon 03-05 Estimated GFR (MDRD) Amer 89 mL/min >60 [facility] Work Phone: Comment on above: GFR Calc Estimated GFR (MDRD) Non-Af Amer 73 mL/min >60 [facility] Work Phone: Comment on above: Non- GFR Calc Serum or plasma albumin joao urement (mass/volume)on 03-05-2022 Albumin [Mass/Vol] 3.6 g/dL 3.2-5.0 [facility] Work Phone: Serum or plasma albumin/glob ulin mass ratioon 03-05-2022 Albumin/Globulin [Mass ratio] 0.9 {ratio} 0.9-2.4 [facility] Work Phone: Serum or plasma calcium joao urement (mass/volume)on 03-05-2022 Calcium [Mass/Vol] 9.1 mg/dL 8.5-10.1 [facility] Work Phone: Serum or plasma cholesterol in HDL measurement (mass/volume)on 03-05-2022 Cholesterol in HDL [Mass/Vol] 46 mg/dL >40 [facility] Work Phone: Comment on above: The drugs N-Acetylcy steine and Metamizole may falsely depress this assay. Reference Range HDL <40 mg/dL Low HDL Cholesterol HDL >or= 60 mg/dL High HDL Cholesterol Serum or plasma cholesterol in VLDL measurement (mass/volume)on 03-05-2022 Cholesterol in VLDL [Mass/Vol] 65 mg/dL 5-40 [facility] Work Phone: Serum or plasma creatinine m easurement (mass/volume)on 03-05-2022 Creatinine [Mass/Vol] 0.84 mg/dL 0.55-1.02 [facility] Work Phone: Comment on above: The validity of the calculated GFR & GFRAA in patients over 70 years has not been determined. Clinical correlation is essential. Serum or plasma low density lipoprotein (LDL) cholesterol measurement (mass/volume)on 03-05-2022 Cholesterol in LDL [Mass/Vol] 69 mg/dL 0-130 [facility] Work Phone: Serum or plasma urea nitroge n measurement (mass/volume)on 03-05-2022 Urea nitrogen [Mass/Vol] 21 mg/dL 7-18 [facility] Work Phone: Thin prep Papanicolaou smear with manual screeningon 03-05-2022 Thin prep Papanicolaou smear with manual screening 20 U/L 15-37 [facility] Work Phone: Thin prep Papanicolaou smear with manual screening 10 5-15 [facility] Work Phone: .Auto Diffon 10-23-2021 Basophil, Absolute 0.10 10 3/mcL Normal 0.00-0.19 [facility] ([place]) Comment on above: Performed By: #### A PTT, CBC, TROPHS, ANEU, PRO, ADIFF, BMP, GFR #### [address] [address] Basophils/100 WBC (Bld) 1.3 % Normal 0.0-2.5 [facility] ([place]) Comment on above: Performed By: #### A PTT, CBC, TROPHS, ANEU, PRO, ADIFF, BMP, GFR #### [address] [address] Eosinophil, Absolute 0.40 10 3/mcL Normal 0.00-0.40 A [facility] ([place]) Comment on above: Performed By: #### A PTT, CBC, TROPHS, ANEU, PRO, ADIFF, BMP, GFR #### [address] [address] Eosinophils/100 WBC (Bld) 4.3 % Normal 0.0-7.0 [facility] ([place]) Comment on above: Performed By: #### A PTT, CBC, TROPHS, ANEU, PRO, ADIFF, BMP, GFR #### [address] [address] Lymphocyte, Absolute 4.00 10 3/mcL High 0.77-3.85 A [facility] ([place]) Comment on above: Performed By: #### A PTT, CBC, TROPHS, ANEU, PRO, ADIFF, BMP, GFR #### [address] [address] Lymphocytes/100 WBC (Bld) 45.6 % Normal 10.0-50.0 [facility] ([place]) Comment on above: Performed By: #### A PTT, CBC, TROPHS, ANEU, PRO, ADIFF, BMP, GFR #### [address] [address] Monocyte, Absolute 0.50 10 3/mcL Normal 0.15-1.00 [facility] ([place]) Comment on above: Performed By: #### A PTT, CBC, TROPHS, ANEU, PRO, ADIFF, BMP, GFR #### [address] [address] Monocytes/100 WBC (Bld) 5.9 % Normal 1.7-13.0 [facility] ([place]) Comment on above: Performed By: #### A PTT, CBC, TROPHS, ANEU, PRO, ADIFF, BMP, GFR #### [address] [address] Neutrophils/100 WBC (Bld) 42.9 % Normal 37.0-80.0 [facility] ([place]) Comment on above: Performed By: #### A PTT, CBC, TROPHS, ANEU, PRO, ADIFF, BMP, GFR #### [address] [address] .GFRon 10-23-2021 GFR 72 ml/min/1.73sqm Normal [facility] ([place]) Comment on above: Result Comment: GFR Population mean for , Non- Americans Ages 20-29 = 116 mL/min/1.73 sq.m. Ages 30-39 = 107 mL/min/1.73 sq.m. Ages 40-49 = 99 mL/min/1.73 sq.m. Ages 50-59 = 93 mL/min/1.73 sq.m. Ages 60-69 = 85 mL/min/1.73 sq.m. Ages 70+ = 75 mL/min/1.73 sq.m. Chronic Kidney Disease: Less than 60 mL/min/1.73 square meters End Stage Renal Disease: Less than 15 mL/min/1.73 square meters Performed By: #### A PTT, CBC, TROPHS, ANEU, PRO, ADIFF, BMP, GFR #### [address] [address] GFR Non- 60 ml/min/1.73sqm Normal [facility] ([place]) Comment on above: Result Comment: GFR Population mean for , Non- Americans Ages 20-29 = 116 mL/min/1.73 sq.m. Ages 30-39 = 107 mL/min/1.73 sq.m. Ages 40-49 = 99 mL/min/1.73 sq.m. Ages 50-59 = 93 mL/min/1.73 sq.m. Ages 60-69 = 85 mL/min/1.73 sq.m. Ages 70+ = 75 mL/min/1.73 sq.m. Chronic Kidney Disease: Less than 60 mL/min/1.73 square meters End Stage Renal Disease: Less than 15 mL/min/1.73 square meters Performed By: #### A PTT, CBC, TROPHS, ANEU, PRO, ADIFF, BMP, GFR #### [address] [address] .NEUABSon 10-23-2021 Neutrophil, Absolute 3.80 10 3/mcL Normal 2.85-6.16 A [facility] ([place]) Comment on above: Performed By: #### A PTT, CBC, TROPHS, ANEU, PRO, ADIFF, BMP, GFR #### [address] [address] APTTon 10-23-2021 aPTT Coag (Bld) [Time] 28.2 s Normal 24.8-33.3 [facility] ([place]) Comment on above: Result Comment: For Heparin anticoagulation therapy, the recommended therapeutic range is: 53.6-87.4 seconds (1.5 - 2.5 the normal plasma mean). Patients on heparin therapy may have an extreme result. Performed By: #### A PTT, CBC, TROPHS, ANEU, PRO, ADIFF, BMP, GFR ####[address] [place], [place] [address] Heparin dose (APTT) None Normal [facility] ([place]) Comment on above: Performed By: #### A PTT, CBC, TROPHS, ANEU, PRO, ADIFF, BMP, GFR ####[address] [address] BMPon 10-23-2021 BUN/Creatinine Ratio 18 ratio Normal 7-27 [facility] ([place]) Comment on above: Performed By: #### A PTT, CBC, TROPHS, ANEU, PRO, ADIFF, BMP, GFR #### [address] [address] Calcium [Mass/Vol] 9.2 mg/dL Normal 8.4-10.2 [facility] ([place] Comment on above: Performed By: #### A PTT, CBC, TROPHS, ANEU, PRO, ADIFF, BMP, GFR #### [address] [address] Chloride [Moles/Vol] 98 mmol/L Normal 98-107 [facility] ([place]) Comment on above: Performed By: #### A PTT, CBC, TROPHS, ANEU, PRO, ADIFF, BMP, GFR #### [address] [address] CO2 [Moles/Vol] 28 mmol/L Normal 23-31 [facility] ([place]) Comment on above: Performed By: #### A PTT, CBC, TROPHS, ANEU, PRO, ADIFF, BMP, GFR #### [address] [address] Creatinine [Mass/Vol] 0.95 mg/dL Normal 0.55-1.02 [facility] ([place]) Comment on above: Performed By: #### A PTT, CBC, TROPHS, ANEU, PRO, ADIFF, BMP, GFR #### [address] [address] Electrolyte Balance 6.0 mEq/L Normal 4.0-15.0 [facility] ([place] Comment on above: Performed By: #### A PTT, CBC, TROPHS, ANEU, PRO, ADIFF, BMP, GFR #### [address] [address] Glucose [Mass/Vol] 240 mg/dL High 80-115 [facility] ([place] Comment on above: Performed By: #### A PTT, CBC, TROPHS, ANEU, PRO, ADIFF, BMP, GFR #### [address] [address] Potassium [Moles/Vol] 3.9 mmol/L Normal 3.5-5.1 [facility] ([place]) Comment on above: Performed By: #### A PTT, CBC, TROPHS, ANEU, PRO, ADIFF, BMP, GFR #### [address] [address] Sodium [Moles/Vol] 132 mmol/L Low 136-145 [facility] ([place]) Comment on above: Performed By: #### A PTT, CBC, TROPHS, ANEU, PRO, ADIFF, BMP, GFR #### [address] [address] Urea nitrogen [Mass/Vol] 17 mg/dL Normal 7-18 [facility]) Comment on above: Performed By: #### A PTT, CBC, TROPHS, ANEU, PRO, ADIFF, BMP, GFR #### [address] [address] CBCon 10-23-2021 Erythrocyte distribution width (RBC) [Ratio] 13.9 % Normal 11.5-14.5 [facility]) Comment on above: Performed By: #### A PTT, CBC, TROPHS, ANEU, PRO, ADIFF, BMP, GFR #### [address] [address] Hematocrit (Bld) [Volume fraction] 37.5 % Normal 37.0-47.0 [facility]) Comment on above: Performed By: #### A PTT, CBC, TROPHS, ANEU, PRO, ADIFF, BMP, GFR #### [address] [address] Hgb 12.9 G/dL Normal 12.0-16.0 [facility] ([place]) Comment on above: Performed By: #### A PTT, CBC, TROPHS, ANEU, PRO, ADIFF, BMP, GFR #### [address] [address] MCH (RBC) [Entitic mass] 29.0 pg Normal 27.0-31.2 [facility] ([place]) Comment on above: Performed By: #### A PTT, CBC, TROPHS, ANEU, PRO, ADIFF, BMP, GFR #### [address] [address] MCHC 34.4 G/dL Normal 33.0-37.0 [facility] ([place]) Comment on above: Performed By: #### A PTT, CBC, TROPHS, ANEU, PRO, ADIFF, BMP, GFR #### [address] [address] MCV (RBC) [Entitic vol] 84.2 fL Normal 80.0-94.0 [facility] ([place]) Comment on above: Performed By: #### A PTT, CBC, TROPHS, ANEU, PRO, ADIFF, BMP, GFR #### [address] [address] Platelet 362 10 3/mcL Normal 130-400 [facility] ([place]) Comment on above: Performed By: #### A PTT, CBC, TROPHS, ANEU, PRO, ADIFF, BMP, GFR #### [address] [address] Platelet mean volume (Bld) [Entitic vol] 8.3 fL Normal 7.4-10.4 [facility] ([place]) Comment on above: Performed By: #### A PTT, CBC, TROPHS, ANEU, PRO, ADIFF, BMP, GFR #### [address] [address] RBC 4.45 10 6/mcL Normal 4.20-5.40 [facility] ([place]) Comment on above: Performed By: #### A PTT, CBC, TROPHS, ANEU, PRO, ADIFF, BMP, GFR #### [address] [address] WBC 8.80 10 3/mcL Normal 4.60-10.80 [facility] ([place]) Comment on above: Performed By: #### A PTT, CBC, TROPHS, ANEU, PRO, ADIFF, BMP, GFR #### [id number] [place], [place] [address] CT HEAD OR BRAIN W/O CONTRAS Ton 10-23-2021 CT HEAD OR BRAIN W/O CONTRAST ORIGINAL EXAMINATION: CT OF THE HEAD WITHOUT CONTRAST 10/23/2021 12:18 am TECHNIQUE: CT of the head was performed without the administration of intravenous contrast. Dose modulation, iterative reconstruction, and/or weight based adjustment of the mA/kV was utilized to reduce the radiation dose to as low as reasonably achievable. COMPARISON: MRI brain 07/02/2019. HISTORY: ORDERING SYSTEM PROVIDED HISTORY: Reason for Exam: change in mental status/weakness/aph ok. Episode of dizziness. Patient states he had 2 previous strokes. FINDINGS: BRAIN/VENTRICLES: There is no acute intracranial hemorrhage, mass effect or midline shift. No abnormal extra-axial fluid collection. The roy-white differentiation is maintained without evidence of an acute infarct. There is no evidence of hydrocephalus. Small perivascular space in the left basal ganglia inferiorly is redemonstrated ORBITS: The visualized portion of the orbits demonstrate no acute abnormality. SINUSES: The visualized paranasal sinuses and mastoid air cells demonstrate no acute abnormality. SOFT TISSUES/SKULL: No acute abnormality of the visualized skull or soft tissues. There is no widening of the internal auditory canals. IMPRESSION: No acute intracranial abnormality. I have personally reviewed the images of this examination and agree with the resident's findings and interpretation. Interpreted by: Kailash Thompson MD Preliminary Report By: Harjeet Castillo Electronically signed By Kailash Thompson MD Dictated Date: 10/23/2021 12:25:08 AM Prelim Date: 10/23/2021 12:30:09 AM Sign Date: 10/23/2021 12:40:06 AM Ordering Provider: [facility] LABORATORYOrdered By: Ro Mcbride on 10-23-2021 Appearance (U) Clear (10/23/21 12:06 AM) Invalid Interpretation Code Clear AO Auto Urine SS Bilirubin Ql (U) Negative (10/23/21 12:06 AM) Invalid Interpretation Code Negative AO Auto Urine SS Color (U) Yellow (10/23/21 12:06 AM) Invalid Interpretation Code AO Auto Urine SS Glucose Test strip (U) [Mass/Vol] Negative Invalid Interpretation Code Negativemg/dL AO Auto Urine SS Hemoglobin Auto test strip (U) [Mass/Vol] Negative (10/23/21 12:06 AM) Invalid Interpretation Code Negative AO Auto Urine SS Ketones Ql (U) Negative Invalid Interpretation Code Negativemg/dL AO Auto Urine SS UA Leuk Est Negative (10/23/21 12:06 AM) Invalid Interpretation Code Negative AO Auto Urine SS UA Nitrite Negative (10/23/21 12:06 AM) Invalid Interpretation Code Negative AO Auto Urine SS UA pH 5.0 (10/23/21 12:06 AM) Invalid Interpretation Code 5.0 - 8.0 AO Auto Urine SS UA Protein Negative Invalid Interpretation Code Negativemg/dL AO Auto Urine SS UA Spec Grav 1.020 (10/23/21 12:06 AM) Invalid Interpretation Code 1.015-1.025 AO Auto Urine SS UA Specimen Type Clean Catch (10/23/21 12:06 AM) Invalid Interpretation Code AO Auto Urine SS UA Urobilinogen 0.2 E.U./dL Invalid Interpretation Code 0.2-1.0E.U./d L AO Auto Urine SS PROon 10-23-2021 INR Coag (PPP) [Relative time] 0.9 {INR} Normal 0.9-1.2 [facility] ([place]) Comment on above: Result Comment: Robert dard Dose 2.0 - 3.0 High Dose 2.5 - 3.5 The recommended therapeutic range for oral anticoagulant therapy is: LOW RISK: Prophylaxis of venous thrombosis INR: 2.0 - 3.0 Treatment of pulmonary embolism 2.0 - 3.0 Prevention of systemic embolism 2.0 - 3.0 HIGH RISK: Mechanical prosthetic valves 2.5 - 3.5 Performed By: #### A PTT, CBC, TROPHS, ANEU, PRO, ADIFF, BMP, GFR ####[address] [place], [place] [address] PT Coag (PPP) [Time] 10.8 s Normal 9.7-14.3 [facility] ([place]) Comment on above: Performed By: #### A PTT, CBC, TROPHS, ANEU, PRO, ADIFF, BMP, GFR ####[address] [address] TROPHSon 10-23-2021 Troponin I High Sensitivity <4.0 Normal 0.0-51.4 [facility] ([place]) Comment on above: Performed By: #### A PTT, CBC, TROPHS, ANEU, PRO, ADIFF, BMP, GFR #### Cherise [address] [address] UAon 10-23-2021 Color (U) Yellow Normal [facility] ([place]) Comment on above: Performed By: #### U A #### [address] [address] Glucose (U) [Mass/Vol] Negative Normal Negative [facility] ([place]) Comment on above: Performed By: #### U A #### [address] [address] Ketones Ql (U) Negative Normal Negative [facility] ([place]) Comment on above: Performed By: #### U A #### [address] [address] UA Appear Clear Normal Clear [facility] ([place]) Comment on above: Performed By: #### U A #### [address] [address] UA Blood Negative Normal Negative [facility] ([place]) Comment on above: Performed By: #### U A #### [address] [address] UA Leuk Est Negative Normal Negative [facility] ([place]) Comment on above: Performed By: #### U A #### [address] [address] UA Nitrite Negative Normal Negative [facility] ([place]) Comment on above: Performed By: #### U A #### [address] [address] UA pH 5.0 Normal 5.0 - 8.0 [facility] ([place]) Comment on above: Performed By: #### U A #### [address] [place] [address] UA Protein Negative Normal Negative [facility] ([place]) Comment on above: Performed By: #### U A #### [address] [address] UA Spec Grav 1.020 Normal 1.015-1.025 [facility] ([place]) Comment on above: Performed By: #### U A #### [address] [address] UA Specimen Type Clean Catch Normal [facility] ([place]) Comment on above: Performed By: #### U A #### [address] [address] UA Urobilinogen 0.2 E.U./dL Normal 0.2-1.0 [facility] ([place]) Comment on above: Performed By: #### U A #### [address] [address] Urobilinogen (U) [Mass/Vol] Negative Normal Negative [facility] ([place]) Comment on above: Performed By: #### U A #### [address] [address] XR CHEST 1 VIEWon 10-23-2021 XR CHEST 1 VIEW ORIGINAL EXAMINATION: ONE XRAY VIEW OF THE CHEST 10/23/2021 12:19 am COMPARISON: 03/23/2021 HISTORY: ORDERING SYSTEM PROVIDED HISTORY: Reason for Exam: chest pain/SOB, patient had an episode of dizziness FINDINGS: Cardiomediastinal silhouette is unchanged, at the upper limits of normal, likely accentuated by patient's large body habitus and AP lordotic projection. No consolidation or vascular congestion. No evidence of pleural effusion. No pneumothorax is identified. Patient had resection of the distal right clavicle. Mild degenerative changes of the left AC joint. IMPRESSION: No acute findings. I have personally reviewed the images of this examination and agree with the resident's findings and interpretation. Interpreted by: Kailash Thompson MD Preliminary Report By: Harjeet Castillo Electronically signed By Kailash Thompson MD Dictated Date: 10/23/2021 12:22:17 AM Prelim Date: 10/23/2021 12:24:45 AM Sign Date: 10/23/2021 12:41:55 AM Ordering Provider: BIRD Jovel [facility] ([place]) LABORATORYOrdered By: Ro Mcbride on 10-22-2021 aPTT Coag (Bld) [Time] 28.2 s Invalid Interpretation Code 24.8 - 33.3 seconds AO Coag SS Basophil, Absolute 0.10 103/mcL Invalid Interpretation Code 0.00 - 0.19 10^3/mcL AO Auto Heme SS Basophils/100 WBC (Bld) 1.3 % Invalid Interpretation Code 0.0 - 2.5 % AO Auto Heme SS Calcium [Mass/Vol] 9.2 mg/dL Invalid Interpretation Code 8.4 - 10.2 mg/dL AO ADM SS Chloride [Moles/Vol] 98 mmol/L Invalid Interpretation Code 98 - 107 mmol/L AO ADM SS CO2 [Moles/Vol] 28 mmol/L Invalid Interpretation Code 23 - 31 mmol/L AO ADM SS Creatinine [Mass/Vol] 0.95 mg/dL Invalid Interpretation Code 0.55 - 1.02 mg/dL AO ADM SS Electrolyte Balance 6.0 mEq/L Invalid Interpretation Code 4.0 - 15.0 mEq/L AO ADM SS Eosinophil, Absolute 0.40 103/mcL Invalid Interpretation Code 0.00 - 0.40 10^3/mcL AO Auto Heme SS Eosinophils/100 WBC (Bld) 4.3 % Invalid Interpretation Code 0.0 - 7.0 % AO Auto Heme SS Erythrocyte distribution width (RBC) [Ratio] 13.9 % Invalid Interpretation Code 11.5 - 14.5 % AO Auto Heme SS Glucose [Mass/Vol] 240 mg/dL Invalid Interpretation Code 80 - 115 mg/dL AO ADM SS Hematocrit (Bld) [Volume fraction] 37.5 % Invalid Interpretation Code 37.0 - 47.0 % AO Auto Heme SS Hemoglobin (Bld) [Mass/Vol] 12.9 G/dL Invalid Interpretation Code 12.0 - 16.0 G/dL AO Auto Heme SS Heparin dose (APTT) None Invalid Interpretation Code AO Coag SS INR Coag (PPP) [Relative time] 0.9 {INR} Invalid Interpretation Code 0.9 - 1.2 ratio AO Coag SS Lymphocyte, Absolute 4.00 103/mcL Invalid Interpretation Code 0.77 - 3.85 10^3/mcL AO Auto Heme SS Lymphocytes/100 WBC (Bld) 45.6 % Invalid Interpretation Code 10.0 - 50.0 % AO Auto Heme SS MCH (RBC) [Entitic mass] 29.0 pg Invalid Interpretation Code 27.0 - 31.2 pg AO Auto Heme SS MCHC (RBC) [Mass/Vol] 34.4 G/dL Invalid Interpretation Code 33.0 - 37.0 G/dL AO Auto Heme SS MCV (RBC) [Entitic vol] 84.2 fL Invalid Interpretation Code 80.0 - 94.0 fL AO Auto Heme SS Monocyte, Absolute 0.50 103/mcL Invalid Interpretation Code 0.15 - 1.00 10^3/mcL AO Auto Heme SS Monocytes/100 WBC (Bld) 5.9 % Invalid Interpretation Code 1.7 - 13.0 % AO Auto Heme SS Neutrophil, Absolute 3.80 103/mcL Invalid Interpretation Code 2.85 - 6.16 10^3/mcL AO Auto Heme SS Neutrophils/100 WBC (Bld) 42.9 % Invalid Interpretation Code 37.0 - 80.0 % AO Auto Heme SS Platelet mean volume (Bld) [Entitic vol] 8.3 fL Invalid Interpretation Code 7.4 - 10.4 fL AO Auto Heme SS Platelets (Bld) [#/Vol] 362 103/mcL Invalid Interpretation Code 130 - 400 10^3/mcL AO Auto Heme SS Potassium [Moles/Vol] 3.9 mmol/L Invalid Interpretation Code 3.5 - 5.1 mmol/L AO ADM SS PT Coag (PPP) [Time] 10.8 s Invalid Interpretation Code 9.7 - 14.3 seconds AO Coag SS RBC (Bld) [#/Vol] 4.45 106/mcL Invalid Interpretation Code 4.20 - 5.40 10^6/mcL AO Auto Heme SS Sodium [Moles/Vol] 132 mmol/L Invalid Interpretation Code 136 - 145 mmol/L AO ADM SS Troponin I.cardiac DL <= 0.01 ng/mL [Mass/Vol] ng/L Invalid Interpretation Code 0.0 - 51.4 ng/L AO ADM SS Urea nitrogen [Mass/Vol] 17 mg/dL Invalid Interpretation Code 7 - 18 mg/dL AO ADM SS Urea nitrogen/Creatinine [Mass ratio] 18 ratio Invalid Interpretation Code 7 - 27 ratio AO ADM SS WBC (Bld) [#/Vol] 8.80 103/mcL Invalid Interpretation Code 4.60 - 10.80 10^3/mcL AO Auto Heme SS LABORATORYOrdered By: SYSTEM SYSTEM on 10-22-2021 GFR 72 ml/min/1.73sqm Invalid Interpretation Code AO Chemistry S GFR Non- 60 ml/min/1.73sqm Invalid Interpretation Code AO Chemistry S LABORATORYOrdered By: Mary Jo Godinez on 10-22-2021 Glucose [Mass/Vol] 256 mg/dL Invalid Interpretation Code 82 - 115 mg/dL [facility] Vital Signs Date Time Vital Sign Value Performing Clinician Facility 12-01-2024 14:53-0400 Body height 162.[address] Byron Velasquez DO Work Phone: [facility] 12-01-2024 14:53-0400 Body mass index (BMI) [Ratio] 37 kg/m2 Dr. Byron Velasquez DO Work Phone: [facility] 12-01-2024 14:53-0400 Body temperature 97.3 [degF] Dr. Byron Velasquez DO Work Phone: [facility] 12-01-2024 14:53-0400 Body weight 97.[address] Byron Velasquez DO Work Phone: [facility] 12-01-2024 14:53-0400 Diastolic blood pressure 70 mm[Hg] Dr. Byron Velasquez DO Work Phone: [facility] 12-01-2024 14:53-0400 Heart rate 68 /min Dr. Byron Velasquez DO Work Phone: [facility] 12-01-2024 14:53-0400 Respiratory rate 14 /min Dr. Byron Velasquez DO Work Phone: [facility] 12-01-2024 14:53-0400 SaO2% (BldA) [Mass fraction] 90 % Dr. Byron Velasquez DO Work Phone: [facility] 12-01-2024 14:53-0400 Systolic blood pressure 110 mm[Hg] Dr. Byron Velasquez DO Work Phone: [facility] 10-12-2024 13:38-0400 Body mass index (BMI) [Ratio] 37.1 kg/m2 Dr. Byron Velasquez DO Work Phone: [facility] 10-12-2024 13:38-0400 Body temperature 97.1 [degF] Dr. Byron Velasquez DO Work Phone: [facility] 10-12-2024 13:38-0400 Body weight 98.[address] Byron Velasquez DO Work Phone: [facility] 10-12-2024 13:38-0400 Diastolic blood pressure 68 mm[Hg] Dr. Byron Velasquez DO Work Phone: [facility] 10-12-2024 13:38-0400 Heart rate 77 /min Dr. Byron Velasquez DO Work Phone: [facility] 10-12-2024 13:38-0400 Respiratory rate 16 /min Dr. Byron Velasquez DO Work Phone: [facility] 10-12-2024 13:38-0400 SaO2% (BldA) [Mass fraction] 97 % Dr. Byron Velasquez DO Work Phone: [facility] 10-12-2024 13:38-0400 Systolic blood pressure 108 mm[Hg] Dr. Byron Velasquez DO Work Phone: [facility] 09-08-2024 14:57-0400 Body mass index (BMI) [Ratio] 36.3 kg/m2 Dr. Byron Velasquez DO Work Phone: [facility] 09-08-2024 14:57-0400 Body temperature 97.9 [degF] Dr. Byron Velasquez DO Work Phone: [facility] 09-08-2024 14:57-0400 Body weight 96.[address] Byron Velasquez DO Work Phone: [facility] 09-08-2024 14:57-0400 Diastolic blood pressure 70 mm[Hg] Dr. Byron Velasquez DO Work Phone: [facility] 09-08-2024 14:57-0400 Heart rate 62 /min Dr. Byron Velasquez DO Work Phone: [facility] 09-08-2024 14:57-0400 Respiratory rate 14 /min Dr. Byron Velasquez DO Work Phone: [facility] 09-08-2024 14:57-0400 SaO2% (BldA) [Mass fraction] 99 % Dr. Byron Velasquez DO Work Phone: [facility] 09-08-2024 14:57-0400 Systolic blood pressure 110 mm[Hg] Dr. Byron Velasquez DO Work Phone: [facility] 08-31-2024 10:32-0400 Body mass index (BMI) [Ratio] 36 kg/m2 Dr. Byron Velasquez DO Work Phone: [facility] 08-31-2024 10:32-0400 Body temperature 98 [degF] Dr. Byron Velasquez DO Work Phone: [facility] 08-31-2024 10:32-0400 Body weight 95.[address] Byron Velasquez DO Work Phone: [facility] 08-31-2024 10:32-0400 Diastolic blood pressure 76 mm[Hg] Dr. Byron Velasquez DO Work Phone: [facility] 08-31-2024 10:32-0400 Heart rate 74 /min Dr. Byron Velasquez DO Work Phone: [facility] 08-31-2024 10:32-0400 Respiratory rate 18 /min Dr. Byron Velasquez DO Work Phone: [facility] 08-31-2024 10:32-0400 SaO2% (BldA) [Mass fraction] 96 % Dr. Byron Velasquez DO Work Phone: [facility] 08-31-2024 10:32-0400 Systolic blood pressure 134 mm[Hg] Dr. Byron Velasquez DO Work Phone: [facility] 03-26-2023 15:06-0400 Body height 162.[address] Byron Velasquez Work Phone: [facility] 03-26-2023 15:06-0400 Body mass index (BMI) [Ratio] 37.4 kg/m2 Dr. Byron Velasquez Work Phone: [facility] 03-26-2023 15:06-0400 Body temperature 97.4 [degF] Dr. Byron Velasuqez Work Phone: [facility] 03-26-2023 15:06-0400 Body weight 98.[address] Byron Velasquez Work Phone: [facility] 03-26-2023 15:06-0400 Diastolic blood pressure 72 mm[Hg] Dr. Byron Velasquez Work Phone: [facility] 03-26-2023 15:06-0400 Heart rate 78 /min Dr. Byron Velasquez Work Phone: [facility] 03-26-2023 15:06-0400 Respiratory rate 16 /min Dr. Byron Velasquez Work Phone: [facility] 03-26-2023 15:06-0400 SaO2% (BldA) [Mass fraction] 96 % Dr. Byron Velasquez Work Phone: [facility] 03-26-2023 15:06-0400 Systolic blood pressure 124 mm[Hg] Dr. Byron Velasquez Work Phone: [facility] 12-25-2022 13:32-0400 Body mass index (BMI) [Ratio] 37 kg/m2 Dr. Byron Velasquez Work Phone: [facility] 12-25-2022 13:32-0400 Body temperature 95 [degF] Dr. Byron Velasquez Work Phone: [facility] 12-25-2022 13:32-0400 Body weight 98.[address] Byron Velasquez Work Phone: [facility] 12-25-2022 13:32-0400 Diastolic blood pressure 84 mm[Hg] Dr. Byron Velasquez Work Phone: [facility] 12-25-2022 13:32-0400 Heart rate 65 /min Dr. Byron Velasquez Work Phone: [facility] 12-25-2022 13:32-0400 Respiratory rate 18 /min Dr. Byron Velasquez Work Phone: [facility] 12-25-2022 13:32-0400 SaO2% (BldA) [Mass fraction] 96 % Dr. Byron Velasquez Work Phone: [facility] 12-25-2022 13:32-0400 Systolic blood pressure 136 mm[Hg] Dr. Byron Velasquez Work Phone: [facility] 06-12-2022 08:25-0500 Body temperature 97.52 [degF] RAMU NICOLE DO [facility] 06-12-2022 08:25-0500 Body weight 97.7 kg RAMU NICOLE DO [facility] 06-12-2022 08:25-0500 Diastolic Blood Pressure Non-Invasive 86 1 RAMU NICOLE DO [facility] 06-12-2022 08:25-0500 Heart rate 76 /min RAMU NICOLE DO [facility] 06-12-2022 08:25-0500 Respiratory rate 18 /min RAMU NICOLE DO [facility] 06-12-2022 08:25-0500 Systolic Blood Pressure Non-Invasive 133 1 RAMU NICOLE DO [facility] 03-05-2022 11:40-0400 Body height 162.[address] Byron Velasquez Work Phone: [facility] Work Phone: 03-05-2022 11:40-0400 Body mass index (BMI) [Ratio] 37 kg/m2 Dr. Byron Velasquez Work Phone: [facility] Work Phone: 03-05-2022 11:40-0400 Body temperature 98.3 [degF] Dr. Byron Velasquez Work Phone: [facility] Work Phone: 03-05-2022 11:40-0400 Body weight 97.[address] Byron Velasquez Work Phone: [facility] Work Phone: 03-05-2022 11:40-0400 Diastolic blood pressure 62 mm[Hg] Dr. Byron Velasquez Work Phone: [facility] Work Phone: 03-05-2022 11:40-0400 Heart rate 87 /min Dr. Byron Velasquez Work Phone: [facility] Work Phone: 03-05-2022 11:40-0400 Respiratory rate 14 /min Dr. Byron Velasquez Work Phone: [facility] Work Phone: 03-05-2022 11:40-0400 SaO2% (BldA) [Mass fraction] 97 % Dr. Byron Velasquez Work Phone: [facility] Work Phone: 03-05-2022 11:40-0400 Systolic blood pressure 108 mm[Hg] Dr. Byron Velasquez Work Phone: [facility] Work Phone: 10-22-2021 23:04-0400 Body temperature 98.06 [degF] BIRD MONTAGUE MD [facility] 10-22-2021 23:04-0400 Diastolic blood pressure 91 mm[Hg] BIRD MONTAGUE MD [facility] 10-22-2021 23:04-0400 Heart rate 76 /min BIRD MONTAGUE MD [facility] 10-22-2021 23:04-0400 Respiratory rate 18 /min BIRD MONTAGUE MD [facility] 10-22-2021 23:04-0400 Systolic blood pressure 166 mm[Hg] BIRD MONTAGUE MD [facility] 03-26-2021 13:36-0400 Body temperature 98.42 [degF] DR NAILA BARCLAY MD [facility] 03-26-2021 13:36-0400 diastolic 70 mm[Hg] DR NAILA BARCLAY MD [facility] 03-26-2021 13:36-0400 Heart rate 78 /min DR NAILA BARCLAY MD [facility] 03-26-2021 13:36-0400 Respiratory rate 18 /min DR NAILA BARCLAY MD [facility] 03-26-2021 13:36-0400 systolic 134 mm[Hg] DR NAILA BARCLAY MD [facility] 03-26-2021 12:22-0400 diastolic 71 mm[Hg] DR NAILA BARCLAY MD [facility] 03-26-2021 12:22-0400 Respiratory rate 18 /min DR NAILA BARCLAY MD [facility] 03-26-2021 12:22-0400 systolic 106 mm[Hg] DR NAILA BARCLAY MD [facility] 03-26-2021 11:55-0400 Body temperature 98.24 [degF] DR NAILA BARCLAY MD [facility] 03-26-2021 11:55-0400 diastolic 64 mm[Hg] DR NAILA BARCLAY MD [facility] 03-26-2021 11:55-0400 Heart rate 66 /min DR NAILA BARCLAY MD [facility] 03-26-2021 11:55-0400 Respiratory rate 18 /min DR NAILA BARCLAY MD [facility] 03-26-2021 11:55-0400 systolic 80 mm[Hg] DR NAILA BARCLAY MD [facility] 03-26-2021 11:00-0400 Body temperature 96.8 [degF] DR NAILA BARCLAY MD [facility] 03-26-2021 11:00-0400 Heart rate 63 /min DR NAILA BARCLAY MD [facility] 03-26-2021 10:29-0400 Body temperature 97.52 [degF] DR NAILA BARCLAY MD [facility] 03-26-2021 08:48-0400 Body weight [address] NAILA BARCLAY MD [facility] Encounters Encounter Date Encounter Type Care Provider Facility Start: 12-01-2024 End: 12-01-[address] Byron Velasquez DO Work Phone: [facility] Work Phone: Start: 12-01-2024 End: 12-01-2024 Patient encounter procedure Prasad ALLEN -[facility] Work Phone: Start: 10-12-2024 End: 10-12-[address] Byron Caal DO -[facility] Work Phone: Start: 10-12-2024 End: 10-12-2024 ambulatory Byron Velasquez Facility:[facility] Start: 09-08-2024 End: 09-08-[address] Byron Caal DO -[facility] Work Phone: Start: 09-08-2024 End: 09-08-2024 ambulatory Byron Velasquez Facility:[facility] Start: 08-31-2024 End: 08-31-[address] Byron Caal DO -[facility] Work Phone: Start: 08-31-2024 End: 08-31-2024 ambulatory Byron Velasquez Facility:[facility] Start: 07-13-2024 End: 07-13-2024 ambulatory Byron Velasquez Facility:[facility] Start: 06-18-2024 End: 06-18-2024 ambulatory Deanna Welch Facility:[facility] Start: 04-07-2024 End: 04-07-2024 ambulatory Byron Velasquez Facility:[facility] Start: 03-24-2024 End: 03-24-2024 ambulatory Andrade Almodovar Facility:[facility] Start: 03-24-2024 End: 03-25-2024 ambulatory Gage Cortes Facility:[facility] Start: 01-06-2024 End: 01-06-2024 ambulatory Byron Velasquez Facility:[facility] Start: 03-27-2023 End: 03-27-[address] Byron Velasquez Work Phone: [facility] Work Phone: Start: 03-27-2023 End: 03-27-[address] Byron Velasquez Work Phone: [facility] Work Phone: Start: 03-26-2023 End: 03-26-[address] Byron Velasquez Work Phone: [facility] Work Phone: Start: 03-26-2023 End: 03-26-[address] Byron Velasquez Work Phone: [facility] Work Phone: Start: 12-25-2022 End: 12-25-[address] Byron Velasquez Work Phone: [facility] Work Phone: Start: 06-12-2022 End: 06-12-2022 Emergency department patient visit BYRON VELASQUEZ Facility:[facility] Start: 06-12-2022 End: 06-12-2022 Emergency department patient visit RAMU NICOLE DO [facility] Start: 03-05-2022 End: 03-05-[address] Byron Velasquez Work Phone: [facility] Work Phone: Start: 03-05-2022 End: 03-05-[address] Byron Velasquez Work Phone: [facility] Start: 10-23-2021 End: 10-23-2021 Emergency department patient visit BIRD MONTAGUE MD Facility:[facility] Start: 10-22-2021 End: 10-23-2021 Emergency department patient visit BIRD MONTAGUE MD [facility] Start: 03-26-2021 End: 03-26-[address] NAILA BARCLAY MD [facility] Procedures Date Procedure Procedure Detail Performing Clinician Start: 04-22-[address] NAILA BARCLAY MD Comment on above: left Start: 06-16-[address] NAILA BARCLAY MD Start: 06-16-[address] NAILA BARCLAY MD Comment on above: x2 multiple Start: 06-16-[address] NAILA BARCLAY MD Comment on above: right bicept Start: 06-16-2007 Repair of musculoten dinous cuff of shoulder DR NAILA BARCLAY MD Comment on above: left Start: 06-16-[address] NAILA BARCLAY MD Comment on above: right Start: 06-16-2000 Repair of musculoten dinous cuff of shoulder DR NAILA BARCLAY MD Comment on above: right Start: 06-16-[address] NAILA BARCLAY MD Comment on above: right Start: 06-16-[address] NAILA BARCLAY MD Start: 06-16-1988 Decompression of med darcy nerve DR NAILA BARCLAY MD Comment on above: right Start: 06-16-[address] NAILA BARCLAY MD Plan of Treatment Date Care Activity Detail Author XR Hip Views [facility] Payers Date Payer Category Payer Self-pay [id number] 2021 Private Health Insurance 101 [id number] 2016 Unknown [employer] [id number] 1960 Unknown [id number] 1960 Unknown [id number] 27 Unknown [facility] [place] [id number] Unknown [facility] COMP [facility] [id number] Unknown [id number] 62 Unknown [id number] 62 Unknown [id number] 62 Unknown [id number] 62 Unknown [id number] 62 Unknown [id number] 62 Unknown [id number] 62 Unknown [id number] 62 Unknown [id number] 62 Unknown [id number] 62 Unknown [id number] 62 Unknown [id number] 62 Social History Date Type Detail Facility Start: 03-24-2024 Never smoked t obacco (finding) [facility] Sex Assigned At [facility] Start: 03-05-2022 End: 03-26-2023 Tobacco smoking status NHIS Unknown if ever smoked [facility] Start: 1960 Sex Assigned At Female [facility] Start: 11-20-2016 None [facility] Start: 11-20-2016 Spouse/ Signif icant Other [facility] Start: 11-20-2016 Non-smoker [facility] Medical Equipment Procedure Code Equipment Code Equipment Origin al Text Equipment Identifier Dates Blood Sugar Diagnostic (Blood Glucose Test) strip Start: 2023 [facility] misc Start: 2023 Functional Status Date Assessment Result Facility 06-12-2022 Functional Status ID band on, Call device within reach, Bed in low position, Wheels locked, Upper/Half-Length side-rails up, Phone within reach [facility] 10-23-2021 Functional Status [facility] Mental Status Date Assessment Result Facility 06-12-2022 Mental Status Oriented x 4 [facility] 10-23-2021 Mental Status [facility] 10-22-2021 Mental Status [facility] Clinical Notes 10-23-2021 to 08-31-2024 Note Date & Type Note Facility 08-31-2024 Evaluation note Diagnosis Onset Date Resolution Acute sinusitis acute August 10:25am Infected tooth chronic August 2:44pm Left knee pain acute September 1:28pm Depression chronic October 12 1:28pm Hypertension chronic October 12, 2024 1:28pm Infected tooth chronic September 1:28pm Type 2 diabetes mellitus chronic October 12, 2024 1:28pm Left hip pain acute December 01, 2024 2:25pm [facility] Work Phone: [phone]) 380-934310-10-2024 [facility] Medical Records Department [address] [place] [address] Discharge Summary 03/25/24 1325 MR#: [id number] Acct: [id number] Name: EMERITA RANGEL Rep #: [id number] : 1960 63 From: Gage Cortes MD PCP: Dr. Byron Velasquez, DO Status:ADM SUZANNE Location: [place] [address] Providers Date of Admission: 03/24/24 Primary Care Physician: Dr. Byron Velasquez, DO Reason For Visit: CHEST PAIN Diagnosis Discharge Diagnosis (1) History of diabetes mellitus: Status: Acute Code(s): Z86.39 - Personal history of other endocrine, nutritional and metabolic disease (2) History of hypertension: Status: Acute Code(s): Z86.79 - Personal history of other diseases of the circulatory system (3) Chest pain: Status: Acute Code(s): R07.9 - Chest pain, unspecified Qualifiers: Chest pain type: other chest pain Qualified Code(s): R07.89 - Other chest pain (4) History of hypercholesterolemia: Status: Acute Code(s): Z86.39 - Personal history of other endocrine, nutritional and metabolic disease Medications at Discharge Home Medications aspirin 81 mg chewable tablet 81 mg PO DAILY@0800 heart health 10/10/16 cetirizine 10 mg capsule 10 mg PO QDAY allergies #30 caps 03/12/18 levetiracetam 750 mg tablet (Keppra) 750 mg PO BID seizures #180 tabs 02/12/19 magnesium oxide 500 mg capsule 500 mg PO DAILY supplement #90 caps 10/31/20 blood sugar diagnostic (Blood Glucose Test strips) #100 ea 06/25/23 blood-glucose meter #1 ea 06/25/23 lancets #200 ea 06/25/23 potassium citrate 15 mEq (1,620 mg) tablet,extended release 15 meq PO BID supplement #180 tabs 06/25/23 pravastatin 20 mg tablet 20 mg PO QHS cholesterol #90 tabs 06/25/23 gabapentin 100 mg capsule 100 mg PO TID nerve pain 01/06/24 allopurinol 100 mg tablet 100 mg PO DAILY gout #90 tabs 02/24/24 amlodipine 5 mg tablet 5 mg PO DAILY blood pressure #90 tabs 02/24/24 glipizide 2.5 mg tablet, extended release 24 hr 2.5 mg PO DAILY diabetes #90 tabs 02/24/24 losartan 50 mg tablet 50 mg PO DAILY blood pressure #90 tabs 02/24/24 metformin 1,000 mg tablet 1,000 mg PO QHS diabetes #90 tabs 02/24/24 metformin 500 mg tablet 500 mg PO BREAKFAST diabetes #90 tabs 02/24/24 omeprazole 20 mg capsule,delayed release 20 mg PO DAILY reflux #90 caps 02/24/24 dulaglutide 4.5 mg/0.5 mL subcutaneous pen injector 4.5 mg (0.5 mL) subcut QWEEK diabetes #2 mL 03/23/24 metoprolol tartrate 50 mg tablet 50 mg PO BID blood pressure #180 TABLETS 03/23/24 Hospital Course Operations None Procedures Nuclear stress test Summary of Care Provided Minutes Spent on Discharge: 33 Hospital Course: Per HPI: EMERITA RANGEL, is a 63 F with a significant history of hypertension, diabetes mellitus, 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 She had 2 episodes of chest pain and it all took her breath away. She describes initial chest pain as an electric shock. Later on the chest pain improved to an aching pain. She also had some tightness in her throat. Reportedly she does not feel the left side of her neck where she had a carotid endarterectomy but with her chest pain she felt pain at the left side of her neck. She denies any nausea, or vomiting. She denies diaphoresis. At the emergency department after a second nitroglycerin sublingual her chest pain went away. Hospital Course: 1. Chest pain???60-year-old female came into the hospital with chest pain that started while she was driving. She says that she has been lifting her granddaughter who has mobility issues that she thought that it could be musculoskeletal however she has an extensive family history with heart attacks and needing stents. EKG and troponins were unremarkable, and stress test today was nonischemic. I discussed with her the plan for discharge today she expressed understanding of the risk benefits going home and would like to go home today. We did discuss lifestyle modifications especially given her comorbidities including diabetes and genetic risk factors with her family history. I do recommend she follow-up with her PCP in 3 to 5 days. 2. Essential hypertension, hyperlipidemia, type 2 diabetes, seizure disorder, GERD are all chronic medical conditions which complicate her care. Her home medications were continued where appropriate Physical Exam Narrative General: Alert, Oriented x3, Cooperative, No apparent distress HEENT: Atraumatic, PERRLA, EOMI, Normocephalic Oral: Moist Mucosa Neck: Supple, No JVD Lungs: Clear to auscultation, Normal air movement, No rhonchi, No wheeze, No rales Cardiovascular: Regular rate, Regular Rhythm, Normal S1, Normal S2, No murmurs Abdomen: Soft, Non Tender, Non-Distended, No Hepato-splenomega (more content not included)...[facility]12-28-2022 Hospital Discharge instructions Patient Education 06/12/2022 09:00:23 Sinusitis (Antibiotic Treatment) Sinusitis (Antibiotic Treatment) The sinuses are air-filled spaces within the bones of the face. They connect to the inside of the nose. Sinusitis is an inflammation of the tissue that lines the sinuses. Sinusitis can occur during acold. It can also happen due to allergies to pollens and other particles in the air. Sinusitis can cause symptoms of sinus congestion and a feeling of fullness. A sinus infection causes fever, headache, and facial pain. There is often green or yellow fluid draining from the nose or into the back ofthe throat (post-nasal drip). You have been given antibiotics to treat this condition. Home care Take the full course of antibiotics as instructed. Do not stop taking them, even when you feel better. Drink plenty of water, hot tea, and other liquids. This may help thin nasal mucus. It also may helpyour sinuses drain fluids. Heat may help soothe painful areas of your face. Use a towel soaked in hot water. Or, ballast cleaning machine operator the shower and direct the warm spray onto your face. Using a vaporizer along with a menthol rub at nightmay also help soothe symptoms. An expectorant with guaifenesin may help thin nasal mucus and help your sinuses drain fluids. You can use an xthm-dly-oemmpsc decongestant, unless a similar medicine was prescribed to you. Nasal sprays work the fastest. Use one that contains phenylephrine or oxymetazoline. First blow your nose gently. Then use the spray. Do not use these medicines more often than directed on the label. If you do, your symptoms may get worse. You may also take pills that contain pseudoephedrine. Don t use products that combine multiple medicines. This is because side effects may be increased. Read labels. You can also ask the pharmacist for help. (People with high blood pressure should not use decongest ants. They can raise blood pressure.) Vwrk-spa-jeeyhpi antihistamines may help if allergies contributed to your sinusitis. Do not use nasal rinses or irrigation during an acute sinus infection, unless your healthcare provider tells you to. Rinsing may spread the infection to other areas in your sinuses. Use acetaminophen or ibuprofen to control pain, unless another pain medicine was prescribed to you.If you have chronic liver or kidney disease or ever had a stomach ulcer, talk with your healthcare provider before using these medicines. (Aspirin should never be taken by anyone under age 18 who is ill with a fever. It may cause severe liver damage.) Don't smoke. This can make symptoms worse. Follow-up care Follow up with your healthcare provider or our staff if you are not better in 1 week. When to seek medical advice Call your healthcare provider if any of these occur: Facial pain or headache that gets worse Stiff neck Unusual drowsiness or confusion Swelling of your forehead or eyelids Vision problems, such as blurred or double vision Fever of 100.4 F (38 C) or higher, or as directed by your healthcare provider Seizure Breathing problems Symptoms don't go away in 10 days Prevention Here are steps you can take to help prevent an infection: Keep good hand washing habits. Don t have close contact with people who have sore throats, colds, or other upper respiratory infections. Don t smoke, and stay away from secondhand smoke. Stay up to date with of your vaccines. 6443-9902 [employer]. [address] [place] [address]. All rights reserved. This information is not intended as a substitute for professional medical care. Always follow yourhealthcare professional's instructions. Follow Up Care 06/12/2022 08:23:23 With:BYRON VELASQUEZ DO Address: [facility] [address] [place] [address] [place] [address]- [phone] When:2-4 days [facility] 12-28-2022 Note Discharge Instructions Thank you for allowing [facility] to assist you with your healthcare needs. The following is importantdischarge information regarding your hospital visit. Diagnosis from Today's Visit Cough Sinus Pain/Congestion What to Do Next Instructions from Your Care Team No qualifying data available. Post Acute Orders No qualifying data available. You Need to Schedule the Following Appointments Follow Up with BYRON VELASQUEZ DO When Within 2-4 days Where: [facility] [address] [place] [address] [place] [address]- [phone] Allergies seasonal enviromental Medications Please ask your primary doctor or pharmacist before taking any other medication not listed, including over the counter drugs, herbal medications, vitamins and or supplements as they may interact withyour home medications. What How Much When Why Instructions Last Dose New azithromycin (azithromycin 250 mg oral tablet) Take two (2) tablets day 1-then one (1) tablet by mouth Every day Duration: 5 Days Printed Prescription New fluconazole (Diflucan 150 mg oral tablet) 1 tab(s) by mouth Once a day Printed Prescription Unchanged allopurinol (allopurinol 100 mg oral tablet) 1 tab(s) by mouth Once a day Unchanged amLODIPine (amLODIPine 5 mg oral tablet) 1 tab(s) by mouth Once a day Unchanged aspirin (aspirin 81 mg oral delayed release tablet) 1 tab(s) by mouth Once a day Unchanged atorvastatin (atorvastatin 40 mg oral tablet) 1 tab(s) by mouth Once a day Unchanged cetirizine (cetirizine 10 mg oral tablet) 1 tab(s) by mouth Once a day (in the evening) Unchanged dulaglutide (Trulicity Pen 1.5 mg/ 0.5 mL subcutaneous solution) 0.5 Milliliter Subcutaneous Every Friday Unchanged levETIRAcetam (levETIRAcetam 750 mg oral tablet) 1 tab(s) by mouth Two (2) times a day Unchanged losartan (losartan 50 mg oral tablet) 1 tab(s) by mouth Once a day Unchanged metFORMIN (metFORMIN 500 mg oral tablet) 1 tab(s) by mouth Once a day (in the morning) Unchanged metFORMIN (metFORMIN 500 mg oral tablet) 2 tab(s) by mouth Once a day (in the evening) Unchanged metoprolol (metoprolol tartrate 50 mg oral tablet) 1 tab(s) by mouth Two (2) times a day Unchanged omeprazole (omeprazole 20 mg oral delayed release capsule (NF)) 1 cap by mouth Daily at bedtime Unchanged potassium citrate (potassium citrate 15 mEq oral tablet, extended release) 1 tab(s) by mouth Two (2) times a day Unchanged predniSONE (prednisone 10mg tab (TAPER)) Taper 40-30-20-10 x 3 days each dose by mouth Once a day COVID-19 detected Duration: 12 Days Take with food/ meal Please take this list to your next doctor s visit. Bring all medications you take, including over the counter medications, herbals and other supplements with you to your doctor s visit. Patients and families are reminded to discard old lists and to update any records with all medication providers or retail pharmacies. Education Materials Sinusitis (Antibiotic Treatment) The sinuses are air-filled spaces within the bones of the face. They connect to the inside of the nose. Sinusitis is an inflammation of the tissue that lines the sinuses. Sinusitis can occur during acold. It can also happen due to allergies to pollens and other particles in the air. Sinusitis can cause symptoms of sinus congestion and a feeling of fullness. A sinus infection causes fever, headache, and facial pain. There is often green or yellow fluid draining from the nose or into the back ofthe throat (post-nasal drip). You have been given antibiotics to treat this condition. Home care Take the full course of antibiotics as instructed. Do not stop taking them, even when you feel better. Drink plenty of water, hot tea, and other liquids. This may help thin nasal mucus. It also may helpyour sinuses drain fluids. Heat may help soothe painful areas of your face. Use a towel soaked in hot water. Or, ballast cleaning machine operator the shower and direct the warm spray onto your face. Using a vaporizer along with a menthol rub at nightmay also help soothe symptoms. An expectorant with guaifenesin may help thin nasal mucus and help your sinuses drain fluids. You can use an tjbc-eed-mxjnbhy decongestant, unless a similar medicine was prescribed to you. Nasal sprays work the fastest. Use one that contains phenylephrine or oxymetazoline. First blow your nose gently. Then use the spray. Do not use these medicines more often than directed on the label. If you do, your symptoms may get worse. You may also take pills that contain pseudoephedrine. Don t use products that combine multiple medicines. This is because side effects may be increased. Read labels. You can also ask the pharmacist for help. (People with high blood pressure should not use decongest ants. They can raise blood pressure.) Vqma-iei-reynoow antihistamines may help if allergies contributed to your sinusitis. Do not use nasal rinses or irrigation during an acute sinus infection, unless your healthcare provider tells you to. Rinsing may spread the infection to other areas in your sinuses. Use acetaminophen or ibuprofen to control pain, unless another pain medicine was prescribed to you.If you have chronic liver or kidney disease or ever had a stomach ulcer, talk with your healthcare provider before using these medicines. (Aspirin should never be taken by anyone under age 18 who is ill with a fever. It may cause severe liver damage.) Don't smoke. This can make symptoms worse. Follow-up care Follow up with your healthcare provider or our staff if you are not better in 1 week. When to seek medical advice Call your healthcare provider if any of these occur: Facial pain or headache that gets worse Stiff neck Unusual drowsiness or confusion Swelling of your forehead or eyelids Vision problems, such as blurred or double vision Fever of 100.4 F (38 C) or higher, or as directed by your healthcare provider Seizure Breathing problems Symptoms don't go away in 10 days Prevention Here are steps you can take to help prevent an infection: Keep good hand washing habits. Don t have close contact with people who have sore throats, colds, or other upper respiratory infections. Don t smoke, and stay away from secondhand smoke. Stay up to date with of your vaccines. 5557-[address] [employer] [place] [address], [place] [address]. All rights reserved. This information is not intended as a substitute for professional medical care. Always follow yourhealthcare professional's instructions. Additional Information VACCINATE! IT SAVES LIVES! Members of the community who have not yet received the COVID-19 vaccine and would like to receive it can visit one of [facility] vaccine clinics. There are many vaccine clinic locations within the [facility]. For locations and available times, please visit [email or web address]. It is important to note that some COVID mobile vaccine clinics are held outdoors and may be canceled in rainy orstormy conditions. To learn more about pediatric vaccinations (ages 5-11), we invite you to visit the [facility] webpage. [email or web address]/[email or web address] [email or web address] learn more about the COVID-19 vaccine, we invite you to visit the [employer] website for a list of frequently asked questions. [email or web address] [facility] Patient Portal Access Instructions: Stay connected with your healthcare team and access your personal medical information anytime with the [facility] Patient Portal. If you would like a full copy of your medical records please contact the [facility] Medical Records Department Friday through Friday between 8a.m. and 4:30p.m. Please follow the directions below to access the portal: 1.Access the email account you provided upon registration to the hospital.2.Look for an invitation email from [facility].3.Open the email and access the invitation link: Accept Invitation to [facility]4.Fill in the required august to create your account. Sign into [email or web address] with your username and password that you created in the above steps to stay up to date. You can then view a summary of results, a summary of your visits, and the ability to download your summaries to your computer or send the information securely to a physician. Remember that your healthcare information is confidential, so carefully consider who you will allow to register on the [facility] Patient Portal for access to your information. You can also access the [facility] Patient Portal on the [employer] marco. Simply click on Health Records under [employer] and then click on the [employer] logo. HOW TO SAFELY DISPOSE OF PRESCRIPTION MEDICATIONS Please use one of the following methods to safely dispose of your unused medications. 1.Use a drug disposal kit: the drug disposal pouch allows you to safely discard your old and unuseddrugs. Ask your nurse to give you one when you are discharged.2.Visit a local take-back location: Many local pharmacies and police departments have programs that collect old and unwanted prescriptiondrugs. Call your local pharmacy or go to http://[employer]/0H8Ip3d to find one close to you.3.Make use of household items: Use cat litter or old coffee grounds to dispose medications if other options arenot available. Mix your drugs with these household products, seal them in an airtight container andthrow it into the garbage. Call [facility]: [phone] to be sure your drugs can be disposed of in this way. Some medicines may require a different approach.4.Never flush your medications down the toilet. IF YOU HAVE BEEN PRESCRIBED AN OPIOIDS FOR PAIN If you have been prescribed an opioid (such as hydrocodone, oxycodone or morphine), it is critical to understand the possible side effects and risks of opioid pain medications. Even when taken as directed, opioids can have several side effects including: Tolerance, meaning you might need to take more of a medication for the same pain relief. Nausea, vomiting and/or constipation. Sleepiness, dizziness, dry mouth, confusion, depression or itching. Physical dependence, meaning you have withdrawal symptoms when a medication is stopped ? this can develop within a few days. KNOW YOUR RESPONSIBILITIES It is important to know exactly how much and how often to take the opioid pain medications you are prescribed. Never take opioids in higher amounts or more often than prescribed. Do not combine opioids with alcohol or other drugs that cause drowsiness, such as benzodiazepines, also known as benzos,including diazepam and alprazolam, muscle relaxants or sleep aids. Never sell or share prescriptionopioids. This is illegal. Store opioids in a secure place and out of reach of others (including children, family, friends and visitors). The last page(s) of this document has been signed and retained as a CHART COPY Signatures Patient Education Materials Sinusitis (Antibiotic Treatment) Medication Leaflets My discharge plan and instructions have been reviewed and explained to me and IJUAN CARLOS ROBERTA Lunderstand my current condition and have read and understand these discharge instructions. I have received a written copy of the plan/instructions. If I have questions, I am aware that I should contact my doctor. Patient/Line Worker Signature: Date/Time: Relationship to Patient: Witness Name/Signature: Date/Time: [facility]05-12-2022 Note. MICRO - Microbiology PROCEDURE: Urine Culture [*1] SOURCE: Urine, Clean Catch BODY SITE: COLLECTED DATE/TIME: 10/23/2021 00:06 EDT RECEIVED DATE/TIME: 10/23/2021 15:01 EDT START DATE/TIME: 10/23/2021 15:01 EDT FREE TEXT SOURCE: FINAL REPORTS Final Report [] Verified Date/Time/Personnel: 10/25/2021 07:40 EDT No growth at 48 hours. PRELIMINARY REPORTS Preliminary Report [] Verified Date/Time/Personnel: 10/24/2021 09:10 EDT No growth at 24 hours. Performing Locations *1: This test was performed at: [facility], [address] [place] [address], [id number] , [facility] ([place])10-23-2021 Evaluation + Plan note Diagnostic Tests Pending * Urine Culture 10/23/21 [facility] 05-10-2022 Hospital Discharge instructions Patient Education 10/23/2021 01:01:23 Dizziness, Uncertain Cause Dizziness (Uncertain Cause) Dizziness is a common symptom. It may be described as lightheadedness, spinning, or feeling like you are going to faint. Dizziness can have many causes. Be sure to tell the healthcare provider about: All medicines you take, including prescription, lhfe-rul-klakckp, herbs, and supplements Any other symptoms you have Any health problems you are being treated for Any past major health problems you've had, such as a heart attack, balance issues, hearing problems, or blood pressure problems Anything that causes the dizziness to get worse or better Today's exam did not show an exact cause for your dizziness. Other tests may be needed. Follow up with your healthcare provider. Home care Dizziness that occurs with sudden standing may be a sign of mild dehydration. Drink extra fluids for the next few days. If you recently started a new medicine, stopped a medicine, or had the dose of a current medicine changed, talk with the prescribing healthcare provider. Your medicine plan may need adjustment. If dizziness lasts more than a few seconds, sit or lie down until it passes. This may help prevent injury in case you pass out. Get up slowly when you feel better. Don't drive or use power tools or dangerous equipment until you have had no dizziness for at least 48 hours. Follow-up care Follow up with your healthcare provider for further evaluation within the next 7 days or as advised. When to seek medical advice Call your healthcare provider for any of the following: Worsening of symptoms or new symptoms Passing out or seizure Repeated vomiting Headache Palpitations (the sense that your heart is fluttering or beating fast or hard) Shortness of breath Blood in vomit or stool (black or red color) Weakness of an arm or leg or 1 side of the face Vision or hearing changes Trouble walking or speaking Chest, arm, neck, back, or jaw pain 3629-2132 [employer]. [address] [place] [address]. All rights reserved. This information is not intended as a substitute for professional medical care. Always follow yourhealthcare professional's instructions. Follow Up Care 10/22/2021 23:01:18 With:SYEDA MCCANN MD, Neurology Service Address: [address] [place] [address] [facility] [address]- [phone] When:2-4 days [facility] Evaluation + Plan note No data available for this section [facility] Evaluation note* Diagnosis Onset Date Resolution Status Osteoarthritis (arthritis du e to wear and tear of joints) acute Depression chronic Hypertension chronic Type 2 diabetes mellitus [facility] Work Phone: Evaluation note* Diagnosis Onset Date Resolution Status Left tennis elbow acute History of stroke chronic Type 2 diabetes mellitus chr onic Depression chronic Hypertension chronic Seasonal allergies chronic Type 2 diabetes mellitus chr onic [facility] Work Phone: Hospital Discharge instructions No data available for this section [facility] Progress note No data available for this section [facility] Reason for referral (narrative)No reason for [facility] Chief Complaint and Reason for Visit Chief Complaint 4 M FU Reason for Visit Osteoarthritis (arth ritis due to wear and tear of joints) Depression Hypertension Type 2 diabetes mellitus Chief Complaint 3 M FU 3 m fu Reason for Visit Left tennis elbow History of stroke Type 2 diabetes mellitus Depression Hypertension Seasonal allergies Type 2 diabetes mellitus Chief Complaint Admit Date POSSIBLE SINUS INFECTION August 31 10:25am pain in rt ear September 08, 2024 2:4 4pm 3 M FU October 12, 2024 1:2 8pm ACUTE LEFT HIP PAIN December 01, 2024 2:25 pm Reason for Visit Admit Date Acute sinusitis August 31, 2024 10: 25am Infected tooth September 08, 2024 2:4 4pm Left knee pain October 12, 2024 1:2 8pm Depression October 12, 2024 1:2 8pm Hypertension October 12, 2024 1:2 8pm Infected tooth October 12, 2024 1:2 8pm Type 2 diabetes mellitus October 12 1:28pm Left hip pain December 01, 2024 2:25 pm Family History Relationship Condition Age at Onset Recorded Date/[place] father Hypertension Unknown Cardiac disease Unknown Myocardial infarction Unknown Hyperlipidemia Unknown brother Epilepsy Unknown mother Disorder of thyroid Unknown sister Lupus erythematosus Unknown Advance Directives Advance Directive Response Recorded Date/ Time Advance Directives No January 26, 2020 10:35am Living Will No January 25 0 10:35am Power of Reinforced Ironworker No January 25 020 10:35am Advance Directive Response Recorded Date/ Time Advance Directives No January 26, 2020 10:35am Summary Purpose Additional Source Comments Care Team (unrecognized sect ion and content) Team Status: Active Member Role Status Dates Dr. Byron Velasquez DO Family Provider Active Dr. Byron Velasquez DO Primary Care Provider Active Team Status: Inactive Member Role Status Dates Dr. Byron Velasquez DO Primary Care Pr ovider, Attending Provider, Referring Provider Active Team Status: Inactive Member Role Status Dates Dr. Byron Velasquez DO Primary Care Provider, Attend ing Provider Active Team Status: Active Member Role Status Dates Dr. Byron Velasquez DO Primary Care Provider, Attend ing Provider Active Team Status: Inactive Member Role Status Dates Dr. Byron Velasquez DO Primary Care Provider Active Start: August 31, 2024 End: August 31, 2024 Dr. Byron Velasquez DO Attending Provider Active Start: August 31, 2024 End: August 31, 2024 Dr. Byron Velasquez DO Referring Provider Active Start: August 31, 2024 End: August 31, 2024 Team Status: Inactive Member Role Status Dates Dr. Byron Velasquez DO Primary Care Provider Active Start: September 08, 2024 End: September 08, 2024 Dr. Byron Velasquez DO Attending Provider Active Start: September 08, 2024 End: September 08, 2024 Dr. Byron Velasquez DO Referring Provider Active Start: September 08, 2024 End: September 08, 2024 Team Status: Inactive Member Role Status Dates Dr. Byron Velasquez DO Primary Care Provider Active Start: October 12, 2024 End: October 12, 2024 Dr. Byron Velasquez DO Attending Provider Active Start: October 12, 2024 End: October 12, 2024 Dr. Byron Velasquez DO Referring Provider Active Start: October 12, 2024 End: October 12, 2024 Team Status: Inactive Member Role Status Dates Dr. Byron Velasquez DO Primary Care Provider Active Start: December 01, 2024 End: December 01, 2024 Dr. Byron Velasquez DO Referring Provider Active Start: December 01, 2024 End: December 01, 2024 TIFFANY Levine Attending Provider Active St art: December 01, 2024 End: December 01, 2024 Goals (unrecognized section and content) Goals may be documented in a n alternate section INFORMATION SOURCE (unrecogn ized section and content) DATE CREATED AUTHOR 06/12/2022 [facility] ([place]) DATE CREATED AUTHOR AUTHOR'S ORGANIZ ATION 10/13/2024 [facility] Care Team (unrecognized sect ion and content) Care Team Personnel Name: BYRON VELASQUEZ DO Member Role: Primary Care Physician Address: Address: [facility] [address] [place] [id number] Name: Andria Mirian Roller Staker Position: Scheduling - Wringer Operator Advanced Member Role: Other Name: RAMU NICOLE DO Position: ED Physician Member Role: ED Physician Address: Address: [facility] [address] [place] [address]- Name: Marcelo Larson RN Position: ED RN Member Role: ED RN Care Team Related Persons Name: MAHOGANYROD ALMAZAN Address: Home [address] [place] [address] FOR RECORDS PERTAINING TO PATIENTS WHO ARE OR HAVE BEEN ENROLLED IN A CHEMICAL DEPENDENCY/SUBSTANCEABUSE PROGRAM, SOME INFORMATION MAY BE OMITTED. This clinical summary was aggregated from multiple sources. Caution should be exercised in using it in the provision of clinical care. This summary normalizes information from multiple sources, and as a consequence, information in this document may materially change the coding, format and clinical context of patient data. In addition, data may be omitted in some cases. CLINICAL DECISIONS SHOULD BE BASED ON THE PRIMARY CLINICAL RECORDS. [employer] provides no warranty or guarantee of the accuracy or completeness of information in this document.
== END | disposition home or self-care (01) ==
LOC: MTRAD 09:08
PROVIDERS: PCP Family Medicine; Referring Provider Physician Assistant; Visit Provider Physician Assistant
DX: M25.552 Pain in left hip (principal)
CPT/HCPCS: 73502